=== PATIENT | female | born 1960 | race Caucasian/White ===

== ENCOUNTER 2018-11-27 07:59 | Emergency (ER) | payer OTHER ==
--- OUTSIDE RECORDS SUMMARY | 2018-11-27 08:03 | XMS REPORT | Clinical Summary ---
:1960 Author Organization [facility] Address [address] [place] [address] Care Team Providers Name Role Phone Connor Klein MD Primary Care Provider Allergies Active Allergy Reactions Severity Noted Date Comments No Known Drug Allergies 07/28/2016 Other Itching 07/28/2016 Hayfever: Other reaction(s): Headache Other reaction(s): Cough Other reaction(s): Chest pain Medications Medication Sig Dispensed Refills Start End Date Status Date diazepam (VALIUM) 5 MG Take 2.5 mg 0 Active tablet by mouth daily. metoprolol tartrate Take 50 mg by 0 Active (LOPRESSOR) 50 MG mouth 2 (two) tablet times a day. omeprazole (PriLOSEC) Take 40 mg by 0 Active 40 MG capsule mouth every other day. traMADol (ULTRAM) 50 mg Take 50 mg by 0 Active tablet mouth as needed. warfarin (COUMADIN) 5 Take 10 mg by 0 Active MG tablet mouth daily. 10 mg FLUoxetine (PROzac) 20 Take 20 mg by 0 Active MG capsule mouth daily. 7 furosemide (LASIX) 40 Take 40 mg by 3 Active mg tablet mouth once 7 daily. Does take 1-2 daily PROAIR RESPICLICK 90 INHALE TWO 2 Active mcg/actuation aerosol (2) PUFF(S) 7 powdr breath activated BY MOUTH EVERY 4 HOURS. gabapentin (NEURONTIN) Take 400 mg 0 Active 400 mg capsule by mouth as needed. atorvastatin (LIPITOR) 1 tablet 0 Active 10 MG tablet daily. 8 VITAMIN D2 50,000 unit once a week. 0 Active capsule 8 magnesium oxide 400 mg 0 Active capsule 8 diphenhydrAMINE Take 25 mg by 0 Active (BENADRYL) 25 mg tablet mouth nightly as needed for sleep. FLUoxetine (PROzac) 40 0 Active MG capsule 8 losartan (COZAAR) 50 MG TAKE ONE (1) 180 tablet 0 Active tablet TABLET(S) BY 8 MOUTH TWICE A DAY. doxycycline TAKE 1 0 Active (VIBRAMYCIN) 50 MG CAPSULE BY 8 capsule MOUTH EVERY 12 HOURS losartan (COZAAR) 50 MG TAKE 1 TABLET 180 tablet 1 Active tablet BY MOUTH 9 TWICE A DAY enoxaparin (LOVENOX) 80 One injection 10 Syringe 1 Active mg/0.8 mL SQ in abdomen 9 syringeIndications: S/P twice a day AVR or as directed by MD office fluticasone (FLONASE) 1 spray into 0 03/08/20 Discontinued 50 mcg/actuation nasal each nostril 18 spray as needed. traZODone (DESYREL) 50 TAKE 0.5 90 tablet 3 03/08/20 Discontinued MG tablet TABLET(S) 6 18 NEEDED BY ORAL ROUTE FOR 90 DAYS. amoxicillin (AMOXIL) TAKE 4 4 capsule 2 11/26/19 500 MG capsule TABLETS 30 7 18 MINS PIROR TO DENTAL WORK METHYLPREDNISOLONE Take by 0 03/08/20 Discontinued (MEDROL ORAL) mouth. Twice 18 daily for five days losartan (COZAAR) 50 MG Take 1 tablet 180 tablet 2 06/02/20 Discontinued tablet (50 mg total) 8 18 by mouth 2 (two) times a day. losartan (COZAAR) 50 MG Take 1 tablet 180 tablet 2 09/27/20 Discontinued tablet (50 mg total) 8 18 by mouth 2 (two) times a day. losartan (COZAAR) 50 MG Take 1 tablet 60 tablet 0 09/30/20 Discontinued tablet (50 mg total) 8 18 by mouth 2 (two) times a day. enoxaparin (LOVENOX) 80 One injection 10 Syringe 1 11/12/19 Discontinued mg/0.8 mL SQ in abdomen 9 19 syringeIndications: S/P twice a day AVR or as directed by MD office amoxicillin (AMOXIL) Take 4 4 capsule 0 11/18/19 500 MG capsule capsules 30 9 19 minutes prior to dental procedure Active Problems Problem Noted Date Acute upper respiratory infection 07/28/2016 S/p [place] #25 [facility] AVR ([facility]) 07/28/2016 Cerebrovascular accident (CVA) 07/28/2016 Cervical radiculitis 07/28/2016 Cluster headaches 07/28/2016 Community acquired pneumonia 07/28/2016 Chronic diastolic congestive heart failure 07/28/2016 Degeneration of intervertebral disc of cervical region 07/28/2016 Degeneration of intervertebral disc of lumbar region 07/28/2016 Depression 07/28/2016 Dissection of aorta 07/28/2016 Essential hypertension 07/28/2016 Hyperlipidemia 07/28/2016 Scoliosis (and kyphoscoliosis), idiopathic 07/28/2016 Uterine neoplasm 07/28/2016 Pseudoaneurysm 07/28/2016 Residual cognitive deficit as late effect of cerebrovascular accident 2015 Aneurysm of vertebral artery 07/28/2016 Temporary cerebral vascular dysfunction 07/28/2016 Encounters Date Type Specialty Care Team Description 11/24/2018 Telephone Cardiology Rios, Anticoagulation Sara, RIGHT OF WAY [employer]TER 11/17/2018 Orders Only Cardiology Mahi Petersen, MA 11/12/2018 Telephone Cardiology Zahira Benitez, RX REFILLED MA 11/05/2018 Orders Only Cardiology Rios, S/P AVR (Primary Dx) Sara, RIGHT OF WAY C[employer]TER 11/04/2018 Telephone Cardiology Rios, Anticoagulation Sara, RIGHT OF [employer] C[employer]TER 11/02/2018 Orders Only Cardiology Rios, S/P AVR (Primary Dx) Sraa, RIGHT OF WAY CUTTER 11/02/2018 Telephone Cardiology Rios, Anticoagulation Sara, RIGHT OF WAY C[employer]TER 10/25/2018 Refill Cardiology Lewis Esparza, Med Refill 10/08/2018 Office Visit Cardiology Lewis Esparza, S/p [place] #25 [facility] AVR ([facility]) (Primary Dx); Dissection of thoracoabdominal aorta (HCC); Aneurysm of vertebral artery (HCC); Chronic diastolic congestive heart failure (HCC) 09/30/2018 Refill Cardiology Lewis Esparza, Med Refill 09/27/2018 Orders Only Cardiology Joseph Acosta, ANDRZEJ 09/27/2018 Orders Only Cardiology Joseph Acosta MA 09/27/2018 Refill Cardiology Lewis Esparza Med Refill 06/07/2018 Telephone Cardiology Joseph Acosta, Results (Myocardial MA Perfusion ) 06/04/2018 Documentation Cardiology Zahira Benitez INR THERAPY ANDRZEJ 06/01/2018 Refill Cardiology Lewis Esparza Med Refill (Losartan) 04/02/2018 Office Visit Cardiology Lewis Esparza S/p [place] #25 [facility] AVR ([facility]) (Primary Dx); Aneurysm of vertebral artery; Dissection of thoracoabdominal aorta; Essential hypertension; Hyperlipidemia, unspecified hyperlipidemia type; Cerebrovascular accident (CVA) due to bilateral stenosis of vertebral arteries; Chronic diastolic congestive heart failure 03/09/2018 Hospital Encounter Radiology Lewis Esparza S/p [place] #25 [facility] AVR ([facility]); Cerebrovascular accident (CVA) due to bilateral stenosis of vertebral arteries; Chronic diastolic congestive heart failure; Dissection of thoracoabdominal aorta; Hyperlipidemia, unspecified hyperlipidemia type 03/08/2018 Office Visit Neurology Antoni Mccrary Aneurysm of vertebral artery (Primary Dx); MD David Cerebrovascular accident (CVA) due to bilateral stenosis of vertebral arteries; Pseudoaneurysm; Temporary cerebral vascular dysfunction; Cervical arthritis after 11/26/2017 Family History Medical History Relation Name Comments Aneurysm Father "cause of " Aneurysm Paternal Uncle "Aortic aneurysm syndrome" Relation Name Status Comments Father (Age 60) Other Unspecified: "There is no family history of premature coronary artery disease" Paternal Uncle Social History Tobacco Use Types Packs/Day Years Used Date Never Smoker Smokeless Tobacco: Never Used Chew Comments: smoker in her teens Alcohol Use Drinks/Week oz/Week Comments Yes "occasional" Sex Assigned at Date Recorded Not on file Job Start Date Occupation Industry Not on file Not on file Not on file Travel History Travel Start Travel End No recent travel history available. Last Filed Vital Signs Vital Sign Reading Time Taken Blood Pressure 108/53 10/08/2018 10:05 AM [employer] Pulse 53 10/08/2018 10:05 AM [employer] Temperature - - Respiratory Rate - - Oxygen Saturation 93% 10/08/2018 10:05 AM [employer] Inhaled Oxygen Concentration - - Weight 80.3 kg (177 lb) 10/08/2018 10:05 AM [employer] Height 180.3 cm (5' 11") 10/08/2018 10:05 AM [employer] Body Mass Index 24.69 10/08/2018 10:05 AM [employer] Plan of Treatment Date Type Specialty Care Team Description 03/21/2019 Office Visit Cardiology Lewis Esparza MD [address] [place] [address] Health Maintenance Due Date Last Done Comments CERVICAL CANCER SCREENING 1983 BREAST CANCER SCREENING 2012 COLON CANCER SCREENING 2012 SHINGLES VACCINES (1 of 2) 2012 INFLUENZA VACCINE Completed 07/23/2018, 07/19/2015 Procedures Procedure Name Priority Date/Time Associated Diagnosis Comments PROTHROMBIN TIME Routine 11/24/2018 Results for this WITH INR procedure are in the results section. PROTHROMBIN TIME Routine 11/04/2018 Results for this WITH INR procedure are in the results section. BASIC METABOLIC Routine 11/03/2018 8:52 S/P AVR Results for this PANEL AM [employer] procedure are in the results section. PROTHROMBIN TIME Routine 10/29/2018 Results for this WITH INR procedure are in the results section. NM MYOCARDIAL Routine 06/02/2018 2:16 S/p Bent[place] #25 me[facility] Results for this PERFUSION STRESS PM CDT AVR ([facility]) procedure are in ONLY Aneurysm of vertebral the results artery section. Dissection of thoracoabdominal aorta Essential hypertension Cerebrovascular accident (CVA) due to bilateral stenosis of vertebral arteries Chronic diastolic congestive heart failure CV STRESS TEST Routine 06/02/2018 2:16 S/p [place] #25 mech Results for this NUCLEAR CARDIO PM CDT AVR ([facility]) procedure are in Aneurysm of vertebral the results artery section. Dissection of thoracoabdominal aorta Essential hypertension Cerebrovascular accident (CVA) due to bilateral stenosis of vertebral arteries Chronic diastolic congestive heart failure ECG 12-LEAD Routine 04/01/2018 ECG 12-LEAD Routine 04/01/2018 CARDIAC MRI Routine 03/09/2018 9:30 S/p [place] #25 mech Results for this CONGENITAL HEART AM CDT AVR ([facility]) procedure are in DISEASE SHUNT EVAL W Cerebrovascular the results CONTRAST accident (CVA) due to section. bilateral stenosis of vertebral arteries Chronic diastolic congestive heart failure Dissection of thoracoabdominal aorta Hyperlipidemia, unspecified hyperlipidemia type POC PANEL Routine 03/09/2018 7:42 Results for this AM CDT procedure are in the results section. ESTIMATED GFR Routine 03/09/2018 7:42 Results for this AM CDT procedure are in the results section. PV TRANSCRANIAL Routine 03/08/2018 11:00 Cerebrovascular Results for this DOPPLER INTRACRANIAL AM CDT accident (CVA) due to procedure are in ARTERIES COMPLETE bilateral stenosis of the results vertebral arteries section. US CAROTID DUPLEX Routine 03/08/2018 11:00 Cerebrovascular Results for this BILATERAL AM CDT accident (CVA) due to procedure are in bilateral stenosis of the results vertebral arteries section. after 11/26/2017 Results Prothrombin time with INR (11/24/2018)Only the most recent of3 resultswithin the time period is included. INR 1.30 [facility] Specimen Blood Performing Organization Address City/[facility]/Zipcode Phone Number [facility] Basic metabolic panel (11/03/2018 8:52 AM [employer]) Glucose 94 65 - 99 mg/dL [facility] Comment: [place] Fasting reference interval BUN, whole blood 16 7 - 25 mg/dL [facility] [place] Creatinine 0.75 0.50 - 1.05 [facility] Comment: mg/dL [place] For patients >49 years of age, the reference limit for Creatinine is approximately 13% higher for people identified as -[place]. EGFR Non-Afr. [place] 89 > OR=60 [facility] mL/min/1.73m2 [place] EGFR 103 > OR=60 [facility] mL/min/1.73m2 [place] BUN/creatinine ratio NOT APPLICABLE 6 - 22 (calc) [facility] [place] Sodium 140 135 - 146 mmol/L [facility] [place] Potassium 4.9 3.5 - 5.3 mmol/L [facility] [place] Chloride 105 98 - 110 mmol/L [facility] [place] CO2 29 20 - 32 mmol/L [facility] [place] Calcium 9.5 8.6 - 10.4 mg/dL [facility] [place] Specimen Blood Narrative Performed At FASTING:YES [facility] FASTING: YES Resulting Agency Comment Performing Organization Information: Site ID: [id number] Name: [facility] Address: [address] [place] [address] Director: Myra Robertson Performing Organization Address City/State/Zipcode Phone Number [employer] [place] [address] [place] [phone] Cv stress test (06/02/2018 2:16 PM CDT) Resting HR 54 [facility] Resting BP 110 [facility] Peak MET Achieved 2.3 [facility] Protocol Name REJI [facility] MUSE Time in Exercise Phase 00:04:00 [facility] Max Systolic BP 132 [facility] Max Diastolic BP 61 [facility] Max Heart Rate 90 [facility] Max Predicted Heart Rate 165 [facility] Target HR Formula (220 - Age)*85% [facility] Test Indication anuerysm of vertebral artery, [facility] MUSE hypertension Arrhy During Ex [facility] ECG Interp Before EX [facility] ECG Interp During Ex [facility] Ex Summary Comment [facility] MUSE Overall HR Response to [facility] Exercise Overall BP Response To [facility] Exercise Reason for Termination Test complete [facility] Stress Test Impression Waveform interpreted in report [facility] MUSE associated with image study. No interpretation is provided as part of this Stress ECG report.--Electronically Signed By Dena BLOUNT, Antoni Rodriguez ([id number]), newspaper or periodical editor Anay Vu ([id number]) on 06/04/2018 3:29:06 PM Performing Organization Address City/State/Zipcode Phone Number [facility] MUSE [address] myocardial perfusion (06/02/2018 2:16 PM CDT) Narrative Performed At [facility] Nuclear Cardiology Laboratory [address] [place] [address], [address] [place], [place] [id number] Fax: Myocardial Perfusion Imaging Report Pat.Name:SHARRON BENNETT Pat.ID:[id number] .Date: 06/02/2018 Refer.MD:LEWIS ESPARZA MD Exam Time: 9:41:00 AM Study Type:Myocardial Perfusion Imaging Height:71inWeight: 175lb BSA: 1.99 m2 DOBAge:1960,57Y Sex: FEMALE Nuclear Tech:BETHANY Paul, ARRT(CT) Nuclear Event ID:[id number] Order ID:[id number] Reason for Study:Abnormal EKG*, Chest pain, unspecified*, Chronic diastolic CHF (I50.32) Procedures:Stress only Race: Clinical Symptoms:Regadenoson SUMMARY: BASELINE ECGSinus bradycardia, 1st degree AV block, nonspecific ST/T wave abnormality STRESS TEST RESULTS Maximal Predicted HR165 beats/minute 85% Maximal Predicted HR 140 beats/minute Stress Test Duration4 minutes 00 seconds Resting Heart Rate54 beats/minute Maximal Heart Rate90 beats/minute Resting Blood Zntuswzc685/55 mmHg Maximal Blood Zccfymcq470/61 mmHg % Maximal Heart Rate Achieved 54% Symptoms During TestHeadache, Nausea, Dizziness, Chest tightness Reason for Stopping TestAs per walking regadenoson protocol Maximal ST-segment shiftNone Stress-Induced Arrhythmias None Ischemic electrocardiographic changes (ST-segment depression) did not occur at peak walking regadenoson stress. STRESS TEST INTERPRETATION Normal maximal walking regadenoson stress test. _. SCINTIGRAPHIC RESULTS Perfusion Defect Size (% LV) 0 % Total 0 % Ischemia 0 % Scar Left Ventricular Perfusion Results There is normal tracer distribution throughout the myocardium during stress. Gated SPECT Results The post-stress left ventricular ejection fraction is 72 % with normal regional wall motion and left ventricular thickening.Left ventricular end-diastolic volume is 121 ml; end-systolic volume is34 ml. The left ventricle is of normal size at stress.The right ventricle is of normal size with normal wall motion. Conclusion Normal regadenoson Tc-99m tetrofosmin myocardial perfusion study. The left ventricular ejection fraction is normal. Comments Patients with a normal stress myocardial perfusion study have a low (< 1%) annual risk of cardiac or nonfatal myocardial infarction. Study Quality/Artifacts The study quality is good. Comparison to Previous Study None available. Signed 06/03/2018 06:46 PM Antoni Fernandes MD Procedure Note Interface, Radiology Results In - 06/03/2018 6:46 PM CDT Nuclear Cardiology Laboratory [address] [facility], [address] [place] [address] Myocardial Perfusion Imaging Report Pat.Name: SHARRON BENNETT Pat.ID: [id number] St.Date: 06/02/2018 Refer.MD: LEWIS ESPARZA MD Exam Time: 9:41:00 AM Study Type:Myocardial Perfusion Imaging Height: 71in Weight: 175lb BSA: 1.99 m2 Age: 9 1960,57Y Sex: FEMALE Nuclear Tech:Edwin Garza [facility]([place]) Nuclear Event ID:[id number] Order ID: [id number] Reason for Study:Abnormal EKG*, Chest pain, unspecified*, Chronic diastolic CHF (I50.32) Procedures:Stress only Race: Clinical Symptoms:Regadenoson SUMMARY: BASELINE ECG Sinus bradycardia, 1st degree AV block, nonspecific ST/T wave abnormality STRESS TEST RESULTS Maximal Predicted HR 165 beats/minute 85% Maximal Predicted HR 140 beats/minute Stress Test Duration 4 minutes 00 seconds Resting Heart Rate 54 beats/minute Maximal Heart Rate 90 beats/minute Resting Blood Pressure 110/55 mmHg Maximal Blood Pressure 132/61 mmHg % Maximal Heart Rate Achieved 54% Symptoms During Test Headache, Nausea, Dizziness, Chest tightness Reason for Stopping Test As per walking regadenoson protocol Maximal ST-segment shift None Stress-Induced Arrhythmias None Ischemic electrocardiographic changes (ST-segment depression) did not occur at peak walking regadenoson stress. STRESS TEST INTERPRETATION Normal maximal walking regadenoson stress test. _. SCINTIGRAPHIC RESULTS Perfusion Defect Size (% LV) 0 % Total 0 % Ischemia 0 % Scar Left Ventricular Perfusion Results There is normal tracer distribution throughout the myocardium during stress. Gated SPECT Results The post-stress left ventricular ejection fraction is 72 % with normal regional wall motion and left ventricular thickening. Left ventricular end-diastolic volume is 121 ml; end-systolic volume is 34 ml. The left ventricle is of normal size at stress. The right ventricle is of normal size with normal wall motion. Conclusion Normal regadenoson Tc-99m tetrofosmin myocardial perfusion study. The left ventricular ejection fraction is normal. Comments Patients with a normal stress myocardial perfusion study have a low (< 1%) annual risk of cardiac or nonfatal myocardial infarction. Study Quality/Artifacts The study quality is good. Comparison to Previous Study None available. Signed 06/03/2018 06:46 PM Antoni Fernandes MD Performing Organization Address City/State/Zipcode Phone Number [facility] [address] [place] [address] ECG 12 lead (04/01/2018)Only the most recent of2 resultswithin the time period is included. Narrative Performed At Cardiac mri congenital heart dz shunt eval w contrast (03/09/2018 9:30 AM CDT) Narrative Performed At [facility] CMR Report Name:SHARRON BENNETT :1960 Scan Date: 2018-03-09 07:55:56 Electronically signed by nAa Irizarry M.D. 15:57:24 VITALS HEIGHT/WEIGHT HEIGHT:71.00 in 180.34 cm WEIGHT:178.99 lbs 81.19 kgs BSA/BP BSA:2.01 m^2 SYSTOLIC BP:111 mmHg DIASTOLIC BP:64 mmHg HEART RATE/RHYTHM BASELINE HR:53 BPM HEART RHYTHM:Other Sinus bradycardia SUMMARY LEFT VENTRICLE: LV wall thickness is normal. LV cavity size is normal. LV systolic function is normal. Quantitative LVEF 63%. There is no LV mass/thrombus. VIABILITY: LV infarct/scar size is 4%.Non-CAD scar in the basal inferolateral wall.Focal infarct in mid-inferior wall. RIGHT VENTRICLE: RV wall thickness is normal. RV cavity size is upper limits of normal. RV systolic function is normal. Quantitative RVEF 58%. There is no RV mass/thrombus.RVEDVi=96 ml/m2. VENTRICULAR SEPTUM: The ventricular septum is intact. ATRIAL SEPTUM: The atrial septum is intact. LEFT ATRIUM: LA cavity size is normal. There is no LA mass/thrombus. RIGHT ATRIUM: RA cavity size is normal. There is no RA mass/thrombus. PERICARDIUM: Pericardium is normal. There is no pericardial effusion. PLEURAL EFFUSION: There is no pleural effusion. AORTIC VALVE: Aortic valve is mechanical prosthetic. There is mild aortic regurgitation. Aortic regurgitant volume 8ml. Aortic regurgitant fraction 8%. There is no aortic stenosis.Aortic regurgitation jet is central when visualized in the LVOT, suggesting transvalvular regurgitation; however, dedicated imaging for AI was not carried out. MITRAL VALVE: Mitral valve leaflets are normal. There is no mitral regurgitation. There is no mitral stenosis. TRICUSPID VALVE: Tricuspid valve leaflets are normal. There is mild tricuspid regurgitation. Tricuspid regurgitant volume 24ml. Tricuspid regurgitant fraction 21%. There is no tricuspid stenosis. PULMONIC VALVE: Pulmonic valve leaflets are normal. There is mild pulmonic regurgitation. There is no pulmonic stenosis. AORTIC ROOT: The aortic root is mildly dilated.The sinus of valsalva measures 4.0 cm. CHEST: 1. 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 There is mild flow acceleration at the proximal graft anastomotic site with folding/kinking of the graft in the mid ascending; However no significant stenosis at the proximal or distal graft anastomotic sites.Both aortic arch and isthmus are dilated (up to 4.3 cm) with tapering to a normal size after mid descending aorta. There is residual dissection in the distal thoracic aorta extending to the left common iliac artery.In the thoracic aorta, the true lumen is located anteriorly and medially. Entry site tear is seen in the proximal aortic arch. The false lumen is not thrombosed and fills antegrade. There is minimal mobility of the dissection flap. The prior mass like structure at the ascending aortic graft extending from the level of the right atrium to just below the origin of innominate artery is smaller at 0.8 x 1.6 cm. This is likely postoperative changes (resolved hematoma). Tissue characteristics relative to myocardium are as follow: isointense on T1, and no evidence of first-pass perfusion, but bright on delayed hyperenhancement. 2. ARCH VESSELS: Dissection extends into the innominate, left common carotid and left subclavian arteries. The innominate artery, left common carotid and subclavian artery arise from both true and false lumen. 3. ABDOMINAL AORTA: The dissection extends throughout the abdominal aorta and to left common iliac artery. The true lumen is located anteriorly and medially. The celiac, SMA and right renal arteries arise from the true lumen. There is a severe 70-89% stenosis at the celiac artery with dissection present. The left renal artery arises from the false lumen.No exit/re-entry site tear seen in the abdominal aorta. The false lumen is not thrombosed and is filled in an antegrade fashion. There is minimal mobility of the dissection flap. 4. PELVIS: The right iliac arises from the true lumen and is free of dissection or aneurysm. 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 OTHER FINDINGS: Multiple liver cysts present. FINAL IMPRESSION: ON DIRECT COMPARISON TO PRIOR CMR 10-16-2015: A.THERE IS A NEW FOCAL INFARCT IN THE LV. B.THERE IS NO EXTENSION OF DISSECTION OR INCREASE IN AORTIC DIMENSIONS. C.THERE IS NOW A SEVERE CELIAC ARTERY STENOSIS. CORE EXAM MEASUREMENTS VOLUMETRIC ANALYSIS . . || | LV | Reference| RV | Reference| +------+-------+------+ +------+ + | EDV| ml|166 |(113-181) |193 |(107-181) | | ESV| ml| 62 |(28-66) | 81 |(22-74) | | CO | L/min | 5.51 || 5.94 || | MASS | g | 97 |(96-157)||| | SV | ml|104 |(74-125)|112 |(72-121)| | EF | % | 63 |(59-77) | 58 |(55-79) | '------+-------+------+ +------+ ' CARDIAC OUTPUT HR:53 BPM LV DIMENSIONS WALL THICKNESS - ANTEROSEPTAL:0.7 cm WALL THICKNESS - INFEROLATERAL:0.6 cm LV BELKIS:6.0 cm LV ESD:3.8 cm LA DIMENSIONS (LV SYSTOLE) DIAMETER:2.1 cm AREA - 2 CHAMBER:12 cm^2 LENGTH - 2 CHAMBER:2.5 cm AREA - 4 CHAMBER:25 cm^2 LENGTH - 4 CHAMBER:7.2 cm VOLUME:102 ml AORTIC ROOT DIMENSIONS ANNULUS:2.3 cm SINUS OF VALSALVA:4.0 cm SINOTUBULAR JUNCTION:2.8 cm EXTRACELLULAR VOLUME MEASUREMENT HEMATOCRIT:47 % HEMATOCRIT DATE:2018-03-09 00:00:00 17 SEGMENT . . | Segments | Wall Motion| Hyperenhancement | Stress Perfusion | Interpretation | + + + + --+ + | Base Anterior| Normal/Hyper | None ||| | Base Anteroseptal| Normal/Hyper | None ||| | Base Inferoseptal| Normal/Hyper | None ||| | Base Inferior| Normal/Hyper | None ||| | Base Inferolateral | Normal/Hyper | 1-25%|| Non-CAD Scar | | Base Anterolateral | Normal/Hyper | None ||| | Mid Anterior | Normal/Hyper | None ||| | Mid Anteroseptal | Normal/Hyper | None ||| | Mid Inferoseptal | Normal/Hyper | None ||| | Mid Inferior | Normal/Hyper | 26-50% || Sub-Endo [place]| | Mid Inferolateral| Normal/Hyper | None ||| | Mid Anterolateral| Normal/Hyper | None ||| | Apical Anterior| Normal/Hyper | None ||| | Apical Septal| Normal/Hyper | None ||| | Apical Inferior| Normal/Hyper | 1-25%|| Sub-Endo [place]| | Apical Lateral | Normal/Hyper | None ||| | [place] | Normal/Hyper | None ||| + + + + --+ + | RV Segments| Wall Motion| Hyperenhancement | Stress Perfusion | Interpretation | + + + + --+ + | RV Basal Anterior| Normal/Hyper | None ||| | RV Basal Inferior| Normal/Hyper | None ||| | RV Mid | Normal/Hyper | None ||| | RV Apical| Normal/Hyper | None ||| ' + + + --+ ' FINDINGS INFARCT/SCAR SIZE:4 % VASCULAR UPPER VASCULAR EVALUATION OF THE THORACIC AORTA COMMENTS (no comments) . . | EVALUATION DETAILS (Thoracic Aorta) | | | | ASCENDING AORTA | | Dimension A:3.6 cm | | Dimension B:3.5 cm | + + | ARCH OF THE AORTA | | Dimension A:4.3 cm | | Dimension B:4 cm | + + | ISTHMUS OF THE AORTA | | Dimension A:4 cm | | Dimension B:3.3 cm | + + | MID-DESCENDING AORTA | | Dimension A:3.3 cm | | Dimension B:3 cm | + + | DISTAL DESCENDING AORTA | | Dimension A:2.7 cm | | Dimension B:2.6 cm | . . LOWER VASCULAR EVALUATION OF THE ABDOMINAL AORTA AND PELVIS COMMENTS (no comments) . . | EVALUATION DETAILS (Abdominal Aorta and Pelvis) | | | | ABDOMINAL AORTA (SUPRA RENAL) | | Dimension A:2.7 cm | | Dimension B:2.6 cm | + + | ABDOMINAL AORTA (JUXTA RENAL) | | Dimension A:2.4 cm | | Dimension B:1.9 cm | + + | ABDOMINAL AORTA (INFRA RENAL) | | Dimension A:2.5 cm | | Dimension B:2.3 cm | + + | ABDOMINAL AORTA (BIFURCATION) | | Dimension A:2.4 cm | | Dimension B:2.3 cm | . . SCAN INFO GENERAL CONTRAST AGENT TYPE:Dotarem LOT NUMBER:[id number] EXPIRATION DATE:2019-04-17 00:00:00 VOLUME ADMINISTERED:25 ml DOSAGE FOR 0.5M:0.15 mmol/kg SERUM CREATININE:0.7 sCr GFR:92.34 ml/min/1.73m^2 CREATININE DATE:2018-03-09 00:00:00 SEDATION SEDATION USED?:No PULSE SEQUENCE PULSE SEQUENCES:Single-Shot SSFP, IR GRE - Segmented, IR SSFP - Single Shot, Single Shot BB CROW, SSFP Cine, Phase Contrast Velocity Mapping, 3D MRA w and w/o contrast SETUP TYPE:Clinical INPATIENT:No INCOMPLETE SCAN:No REASON(S) FOR SCAN:Aortic Dissection, Aortic valve (evaluate), Congenital Heart Disease REFERRING PHYSICIAN:Lewis Esparza MD ATTENDING PHYSICIAN:Lewis Esparza MD TECHNOLOGIST:Giovanni Rubio Patient Account [id number] CPT Codes 56225, 70781, 02161, 18361 ICD10 Codes I71.02, I71.01, I71.2 ADDITIONAL NOTES [id number] Report generated by [employer], a product of [employer] Procedure Note Interface, Radiology Results In 03/09/2018 3:57 PM CDT Correa Rastafari CMR Report Name: SHARRON BENNETT : 1960 Scan Date: 2018-03-09 07:55:56 Electronically signed by Ana Irizarry M.D. 15:57:24 VITALS HEIGHT/WEIGHT HEIGHT: 71.00 in 180.34 cm WEIGHT: 178.99 lbs 81.19 kgs BSA/BP BSA: 2.01 m^2 SYSTOLIC BP: 111 mmHg DIASTOLIC BP: 64 mmHg HEART RATE/RHYTHM BASELINE HR: 53 BPM HEART RHYTHM: Other Sinus bradycardia SUMMARY LEFT VENTRICLE: LV wall thickness is normal. LV cavity size is normal. LV systolic function is normal. Quantitative LVEF 63%. There is no LV mass/thrombus. VIABILITY: LV infarct/scar size is 4%. Non-CAD scar in the basal inferolateral wall. Focal infarct in mid-inferior wall. RIGHT VENTRICLE: RV wall thickness is normal. RV cavity size is upper limits of normal. RV systolic function is normal. Quantitative RVEF 58%. There is no RV mass/thrombus. RVEDVi=96 ml/m2. VENTRICULAR SEPTUM: The ventricular septum is intact. ATRIAL SEPTUM: The atrial septum is intact. LEFT ATRIUM: LA cavity size is normal. There is no LA mass/thrombus. RIGHT ATRIUM: RA cavity size is normal. There is no RA mass/thrombus. PERICARDIUM: Pericardium is normal. There is no pericardial effusion. PLEURAL EFFUSION: There is no pleural effusion. AORTIC VALVE: Aortic valve is mechanical prosthetic. There is mild aortic regurgitation. Aortic regurgitant volume 8ml. Aortic regurgitant fraction 8%. There is no aortic stenosis. Aortic regurgitation jet is central when visualized in the LVOT, suggesting transvalvular regurgitation; however, dedicated imaging for AI was not carried out. MITRAL VALVE: Mitral valve leaflets are normal. There is no mitral regurgitation. There is no mitral stenosis. TRICUSPID VALVE: Tricuspid valve leaflets are normal. There is mild tricuspid regurgitation. Tricuspid regurgitant volume 24ml. Tricuspid regurgitant fraction 21%. There is no tricuspid stenosis. PULMONIC VALVE: Pulmonic valve leaflets are normal. There is mild pulmonic regurgitation. There is no pulmonic stenosis. AORTIC ROOT: The aortic root is mildly dilated. The sinus of valsalva measures 4.0 cm. CHEST: 1. 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 There is mild flow acceleration at the proximal graft anastomotic site with folding/kinking of the graft in the mid ascending; However no significant stenosis at the proximal or distal graft anastomotic sites. Both aortic arch and isthmus are dilated (up to 4.3 cm) with tapering to a normal size after mid descending aorta. There is residual dissection in the distal thoracic aorta extending to the left common iliac artery. In the thoracic aorta, the true lumen is located anteriorly and medially. Entry site tear is seen in the proximal aortic arch. The false lumen is not thrombosed and fills antegrade. There is minimal mobility of the dissection flap. The prior mass like structure at the ascending aortic graft extending from the level of the right atrium to just below the origin of innominate artery is smaller at 0.8 x 1.6 cm. This is likely postoperative changes (resolved hematoma). Tissue characteristics relative to myocardium are as follow: isointense on T1, and no evidence of first-pass perfusion, but bright on delayed hyperenhancement. 2. ARCH VESSELS: Dissection extends into the innominate, left common carotid and left subclavian arteries. The innominate artery, left common carotid and subclavian artery arise from both true and false lumen. 3. ABDOMINAL AORTA: The dissection extends throughout the abdominal aorta and to left common iliac artery. The true lumen is located anteriorly and medially. The celiac, SMA and right renal arteries arise from the true lumen. There is a severe 70-89% stenosis at the celiac artery with dissection present. The left renal artery arises from the false lumen.No exit/re-entry site tear seen in the abdominal aorta. The false lumen is not thrombosed and is filled in an antegrade fashion. There is minimal mobility of the dissection flap. 4. PELVIS: The right iliac arises from the true lumen and is free of dissection or aneurysm. 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 OTHER FINDINGS: Multiple liver cysts present. FINAL IMPRESSION: ON DIRECT COMPARISON TO PRIOR CMR 10-16-2015: A. THERE IS A NEW FOCAL INFARCT IN THE LV. B. THERE IS NO EXTENSION OF DISSECTION OR INCREASE IN AORTIC DIMENSIONS. C. 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 CORE EXAM MEASUREMENTS VOLUMETRIC ANALYSIS . . | | | LV | Reference | RV | Reference | +------+-------+------+ +------+ + | EDV | ml | 166 | (113-181) | 193 | (107-181) | | ESV | ml | 62 | (28-66) | 81 | (22-74) | | CO | L/min | 5.51 | | 5.94 | | | MASS | g | 97 | (96-157) | | | | SV | ml | 104 | (74-125) | 112 | (72-121) | | EF | % | 63 | (59-77) | 58 | (55-79) | '------+-------+------+ +------+ ' CARDIAC OUTPUT HR: 53 BPM LV DIMENSIONS WALL THICKNESS - ANTEROSEPTAL: 0.7 cm WALL THICKNESS - INFEROLATERAL: 0.6 cm LV BELKIS: 6.0 cm LV ESD: 3.8 cm LA DIMENSIONS (LV SYSTOLE) DIAMETER: 2.1 cm AREA - 2 CHAMBER: 12 cm^2 LENGTH - 2 CHAMBER: 2.5 cm AREA - 4 CHAMBER: 25 cm^2 LENGTH - 4 CHAMBER: 7.2 cm VOLUME: 102 ml AORTIC ROOT DIMENSIONS ANNULUS: 2.3 cm SINUS OF VALSALVA: 4.0 cm SINOTUBULAR JUNCTION: 2.8 cm EXTRACELLULAR VOLUME MEASUREMENT HEMATOCRIT: 47 % HEMATOCRIT DATE: 2018-03-09 00:00:00 17 SEGMENT . . | Segments | Wall Motion | Hyperenhancement | Stress Perfusion | Interpretation | + + + + +---- + | Base Anterior | Normal/Hyper | None | | | | Base Anteroseptal | Normal/Hyper | None | | | | Base Inferoseptal | Normal/Hyper | None | | | | Base Inferior | Normal/Hyper | None | | | | Base Inferolateral | Normal/Hyper | 1-25% | | Non -CAD Scar | | Base Anterolateral | Normal/Hyper | None | | | | Mid Anterior | Normal/Hyper | None | | | | Mid Anteroseptal | Normal/Hyper | None | | | | Mid Inferoseptal | Normal/Hyper | None | | | | Mid Inferior | Normal/Hyper | 26-50% | | Sub -Endo [place] | | Mid Inferolateral | Normal/Hyper | None | | | | Mid Anterolateral | Normal/Hyper | None | | | | Apical Anterior | Normal/Hyper | None | | | | Apical Septal | Normal/Hyper | None | | | | Apical Inferior | Normal/Hyper | 1-25% | | Sub -Endo [place] | | Apical Lateral | Normal/Hyper | None | | | | [place] | Normal/Hyper | None | | | + + + + +---- + | RV Segments | Wall Motion | Hyperenhancement | Stress Perfusion | Interpretation | + + + + +---- + | RV Basal Anterior | Normal/Hyper | None | | | | RV Basal Inferior | Normal/Hyper | None | | | | RV Mid | Normal/Hyper | None | | | | RV Apical | Normal/Hyper | None | | | ' + + + +---- ' FINDINGS INFARCT/SCAR SIZE: 4 % VASCULAR UPPER VASCULAR EVALUATION OF THE THORACIC AORTA COMMENTS (no comments) . . | EVALUATION DETAILS (Thoracic Aorta) | | | | ASCENDING AORTA | | Dimension A: 3.6 cm | | Dimension B: 3.5 cm | + + | ARCH OF THE AORTA | | Dimension A: 4.3 cm | | Dimension B: 4 cm | + + | ISTHMUS OF THE AORTA | | Dimension A: 4 cm | | Dimension B: 3.3 cm | + + | MID-DESCENDING AORTA | | Dimension A: 3.3 cm | | Dimension B: 3 cm | + + | DISTAL DESCENDING AORTA | | Dimension A: 2.7 cm | | Dimension B: 2.6 cm | . . LOWER VASCULAR EVALUATION OF THE ABDOMINAL AORTA AND PELVIS COMMENTS (no comments) . . | EVALUATION DETAILS (Abdominal Aorta and Pelvis) | | | | ABDOMINAL AORTA (SUPRA RENAL) | | Dimension A: 2.7 cm | | Dimension B: 2.6 cm | + + | ABDOMINAL AORTA (JUXTA RENAL) | | Dimension A: 2.4 cm | | Dimension B: 1.9 cm | + + | ABDOMINAL AORTA (INFRA RENAL) | | Dimension A: 2.5 cm | | Dimension B: 2.3 cm | + + | ABDOMINAL AORTA (BIFURCATION) | | Dimension A: 2.4 cm | | Dimension B: 2.3 cm | . . SCAN INFO GENERAL CONTRAST AGENT TYPE: Dotarem LOT NUMBER: [id number] EXPIRATION DATE: 2019-04-17 00:00:00 VOLUME ADMINISTERED: 25 ml DOSAGE FOR 0.5M: 0.15 mmol/kg SERUM CREATININE: 0.7 sCr GFR: 92.34 ml/min/1.73m^2 CREATININE DATE: 2018-03-09 00:00:00 SEDATION SEDATION USED?: No PULSE SEQUENCE PULSE SEQUENCES: Single-Shot SSFP, IR GRE - Segmented, IR SSFP - Single Shot, Single Shot BB CROW, SSFP Cine, Phase Contrast Velocity Mapping, 3D MRA w and w/o contrast SETUP TYPE: Clinical INPATIENT: No INCOMPLETE SCAN: No REASON(S) FOR SCAN: Aortic Dissection, Aortic valve (evaluate), Congenital Heart Disease REFERRING PHYSICIAN: Lewis Esparza MD ATTENDING PHYSICIAN: Lewis Esparza MD TECHNOLOGIST: Giovanni Rubio Patient Account [id number] CPT Codes 36756, 54178, 46333, 73498 ICD10 Codes I71.02, I71.01, I71.2 ADDITIONAL NOTES [id number] Report generated by [employer], a product of [employer] Performing Organization Address [facility] [place] Phone Number [facility] [address] [place] [address] Estimated GFR (03/09/2018 7:42 AM CDT) GFR Non Af Amer 87 mL/min/1.73 m2 [facility] DEPARTMENT OF PATHOLOGY AND GENOMIC MEDICINE GFR Af Amer >90 mL/min/1.73 m2 [facility] DEPARTMENT OF Comment: PATHOLOGY AND GENOMIC Chronic kidney disease: <60 mL/min/1.73m2 MEDICINE Kidney failure: <15 mL/min/1.73m2 The estimated GFR is calculated from the IDMS-traceable Modification of Diet in Renal Disease Equation. The accuracy of the calculation is poor when the creatinine is normal. Calculated values >90 mL/min/1.73m2 are not reported. This equation has not been validated in children (<18 years), women, the elderly (>70 years), or ethnic groups other than Caucasians and Americans. Specimen Blood Performing Organization Address [facility] Phone Number [facility] DEPARTMENT OF PATHOLOGY AND [address] [place] [address] [place] POC panel (03/09/2018 7:42 AM CDT) POC creatinine 0.7 0.5 - 0.9 mg/dl [facility] DEPARTMENT OF PATHOLOGY AND GENOMIC MEDICINE POC hematocrit 42 37 - 47 % [facility] DEPARTMENT OF PATHOLOGY AND Comment: GENOMIC MEDICINE Meter ID: [id number] Paradichlorobenzene Tender: Dennys Mclaughlin Performing Organization Address City/State/Zipcode Phone Number [facility] DEPARTMENT OF PATHOLOGY AND [address] [place] [address] GENOMIC MEDICINE Pv transcranial Doppler intracranial arteries (03/08/2018 11:00 AM CDT) Narrative Performed At Clinical Indications/Diagnosis: Equipment: thesixtyone PMD 150 Vessel RIGHTLEFT Ophthalmic Artery Antegrade Antegrade Siphon normal normal Anterior Cerebral Artery Normal Normal Middle Cerebral Artery Normal- TIBI 5 Normal- TIBI 5 Posterior Cerebral ArteryNormal Normal Verterbral Artery Normal Normal Basilic Artery Normal Normal TCD MonitoringPositive Postive BHI: >0.69 (normal) NormalNormal Head Turning Findings: normal cerebral hemodynamic flow seen. normal distal ICA and vertibrobasilar flow seen.. Positive spontaneous emboli were detected with 12-15 emboli per min BHI: Right MCA=(43-32/32)x100/20=1.7 BHI: Left MCA=(49-39/39)x100/20=1.3 Physician Interpretation of TCD: 1) There is no stenosis in the distal internal carotid arteries or vertebrobasilar arteries. 2) No hemodynamically significant intracranial stenoses in the major branches of the [place]. 3) Spontaneous emboli were detected during monitoring. 4) The cerebrovascular reserve is normal on breath holding. Recommend ultrasound follow-up in 1-2 years or sooner if symptoms develop. Us carotid duplex (03/08/2018 11:00 AM CDT) R CCA Mid 27.00 cm/s cm/s R CCA Mid 123.00 cm/s cm/s L CCA Mid 17.00 cm/s cm/s L CCA Mid 124.00 cm/s cm/s L ECA Prox 6.00 cm/s cm/s L ECA Prox 93 cm/s cm/s R ECA Prox 11.00 cm/s cm/s L ICA Prox 31 cm/s cm/s L ICA Prox 82 cm/s cm/s R ICA Prox 33 cm/s cm/s R ICA Prox 82 cm/s cm/s L ICA/CCA Ratio 0.8 cm/s R ICA/CCA Ratio 0.9 cm/s R ICA Dist 31 cm/s cm/s R ICA Mid 41 cm/s cm/s L ICA Dist 33 cm/s cm/s L ICA DIST 98 cm/s cm/s R Vert Art 9.00 cm/s cm/s R ECA Prox 94.00 cm/s cm/s L ICA Mid 28 cm/s cm/s L ICA Mid 88 cm/s cm/s R ICA Dist 76 cm/s cm/s R ICA Mid 110 cm/s cm/s L Vert Art 10.00 cm/s cm/s L Vert Art 30 cm/s cm/s R Vert Art 36.00 cm/s cm/s Narrative Performed At Physician Interpretation of Carotid Doppler: 1) There is no significant plaque in the bilateral carotid arteries. 2) There are no hemodynamically significant stenoses. 3) Both vertebral arteries flow antegrade. Recommend ultrasound follow-up in 1-2 years or sooner if symptoms develop. after 11/26/2017 Insurance Payer Benefit Plan / Group Subscriber ID Type Phone Address [employer] HMO GOLD [employer]US MEDICARE xxxxxxxxx HMO [phone] [place] [address] Sharron Bennett [employer] Democrat Self 1960 [phone] [place] [address] Advance Directives Patient has advance care planning documents on file. For more information, please contact:[place] [address]
[2018-11-27] MEDS ORDERED: PHENYLEPHRINE 0.5% NOSE 15ML NAS ONE (08:25)
--- NOTE | 2018-11-27 12:05 | EDPHYS ---
Physician Documentation [facility] Name: Sharron Botello Age: 58 yrs Sex: Female : 1960 Arrival Date: 11/27/2018 Time: 08:01 Bed 20 Private MD: Out, [facility] ED Physician Jeffery Irvin HPI: 11/27 08:24 This 58 yrs old Female presents to ER via Ambulatory with complaints of Nose rn Bleed. 08:24 The patient presents with a nose bleed. Onset: The symptoms/episode began/occurred this rn morning. Modifying factors: The symptoms are alleviated by nothing. the symptoms are aggravated by blowing nose. Severity of symptoms: At their worst the symptoms were mild in the emergency department the symptoms have improved. The patient has not experienced similar symptoms in the past. Reports on coumadin, no recent changes, + nosebleed since this morning. Reports concerned because has heart problems, no syncope. NO trauma. No sob or lightheaded. . Historical: - Allergies: 08:10 No Known Allergies; hb - Home Meds: 08:10 Coumadin Oral [Active]; Fluoxetine Oral [Active]; tramadol Oral [Active]; atorvastatin hb oral oral [Active]; Metoprolol Tartrate Oral [Active]; losartan oral oral [Active]; Lasix Oral [Active]; Flonase Nasal [Active]; - PSHx: 08:10 Balloon Sinuplasty; Aortic Arch; Aortic Valve; hb - Immunization history:: Adult Immunizations up to date. - Social history:: Smoking status: Patient/guardian denies using tobacco. - Ebola Screening: : No symptoms or risks identified at this time. - Family history:: not pertinent. - Hospitalizations: : No recent hospitalization is reported. ROS: 08:24 Constitutional: Negative for fever, chills, and weight loss, ENT: + nosebleed rn spine: Negative for chest pain, palpitations, and edema, Respiratory: Negative for shortness of breath, cough, wheezing, and pleuritic chest pain, Abdomen/GI: Negative for abdominal pain, nausea, vomiting, diarrhea, and constipation, MS/Extremity: Negative for injury and deformity, Skin: Negative for injury, rash, and discoloration, Neuro: Negative for headache, weakness, numbness, tingling, and seizure. Exam: 08:24 Constitutional: This is a well developed, well nourished patient who is awake, alert, rn appears anxious, coughing some oral blood ENT: + very slow bleed right nare Neuro: Awake and alert, GCS 15, oriented to person, place, time, and situation. Cranial nerves II-XII grossly intact. Motor strength 5/5 in all extremities. Sensory grossly intact. Vital Signs: 08:07 BP 128 / 58; Pulse 82; Resp 16; Temp 97.8; Pulse Ox 100% on R/A; Pain 0/10; hb 10:00 BP 131 / 61; Pulse 84; Resp 18; Pulse Ox 99% on R/A; em 11:09 BP 115 / 66; Pulse 52; Resp 16; Pulse Ox 99% on R/A; em 12:34 BP 112 / 67; Pulse 61; Resp 18; Pulse Ox 99% on R/A; em Procedures: 10:48 Epistaxis treatment: A small amount of bleeding noted from Treated using Oxymetazoline rn sprays, anterior packing, rhino rocket, Bleeding stopped. MDM: 08:03 Patient medically screened. rn 10:48 ED course: bleeding has decreased tremendously, removed packing because was still rn oozing, and thought being that needed posterior packing, once removed, bleeding seems to have stopped, now just has to remove posterior clot. . 11:14 ED course: Bleeding started again after patient blowing nose and removing posterior rn pharyngeal clot. Ant/post rhino rocket placed.. 12:02 Differential diagnosis: spontaneous epistaxis. Data reviewed: vital signs, nurses rn notes, and as a result, I will discharge patient. Counseling: I had a detailed discussion with the patient and/or guardian regarding: the historical points, exam findings, and any diagnostic results supporting the discharge/admit diagnosis, the need for outpatient follow up, to return to the emergency department if symptoms worsen or persist or if there are any questions or concerns that arise at home. Response to treatment: the patient's symptoms have mildly improved after treatment, and as a result, I will discharge patient. ED course: UNable to completely stop bleeding, unable to contact Dr. Valadez, called but no answer, patient and state prefer to f/u with their ENT doctor, have already contacted them, plan is to meet in ER in [place], patient requested soft packing of left nare for travel control, placed and improved. Concern is that she has posterior bleed. Normal vitals, no need for emergent reversal of coumadin at this point. . Administered Medications: 08:15 Drug: Arik-Synephrine [place] 0.5 % 2 sprays {Note: administered by Dr. Irvin.} Route: em Intranasal; Site: both nares; 10:44 Follow up: Response: No adverse reaction; Marked relief of symptoms em Disposition: 11/27/18 12:04 Discharged to Home. Impression: Epistaxis. - Condition is Stable. - Discharge Instructions: Nosebleed, Adult. - Medication Reconciliation Form, Thank You Letter, Antibiotic Education, Prescription Opioid Use form. - Follow up: Private Physician; When: Upon discharge from the Emergency Department; Reason: Recheck today's complaints, Re-evaluation by your physician. - Problem is new. - Symptoms have improved. Signatures: Jl Riley, CARD PLACER CARD PLACER em Jeffery Irvin MD MD rn Baxter, Heather, RN RN Corrections: (The following items were deleted from the chart) 13:00 12:04 11/27/2018 12:04 Discharged to Home. Impression: Epistaxis. Condition is Stable. em Forms are Medication Reconciliation Form, Thank You Letter, Antibiotic Education, Prescription Opioid Use. Follow up: Private Physician; When: Upon discharge from the Emergency Department; Reason: Recheck today's complaints, Re-evaluation by your physician. Problem is new. Symptoms have improved. rn
--- NOTE | 2018-11-27 12:05 | ER ---
Nurse's Notes [facility] Name: Sharron Botello Age: 58 yrs Sex: Female : 1960 Arrival Date: 11/27/2018 Time: 08:01 Bed 20 Private MD: Out, [facility] Diagnosis: Epistaxis Presentation: 11/27 08:06 Presenting complaint: Nosebleed upon waking today. Pt is 8 days s/p balloon sinuplasty. hb Transition of care: patient was not received from another setting of care. Onset of symptoms was November 27, 2018. Risk Assessment: Do you want to hurt yourself or someone else? Patient reports no desire to harm self or others. Care prior to arrival: None. 08:06 Method Of Arrival: Ambulatory hb 08:06 Acuity: DAVION 3 hb Historical: - Allergies: 08:10 No Known Allergies; hb - Home Meds: 08:10 Coumadin Oral [Active]; Fluoxetine Oral [Active]; tramadol Oral [Active]; atorvastatin hb oral oral [Active]; Metoprolol Tartrate Oral [Active]; losartan oral oral [Active]; Lasix Oral [Active]; Flonase Nasal [Active]; - PSHx: 08:10 Balloon Sinuplasty; Aortic Arch; Aortic Valve; hb - Immunization history:: Adult Immunizations up to date. - Social history:: Smoking status: Patient/guardian denies using tobacco. - Ebola Screening: : No symptoms or risks identified at this time. - Family history:: not pertinent. - Hospitalizations: : No recent hospitalization is reported. Screenin:10 Abuse screen: Denies threats or abuse. Denies injuries from another. Nutritional hb screening: No deficits noted. Tuberculosis screening: No symptoms or risk factors identified. Fall Risk None identified. Assessment: 08:12 General: Appears uncomfortable, Behavior is calm, cooperative, nose bleed started 0700 em this morning, reports being on Coumadin for cardiac problems. Pain: Denies pain. Neuro: Level of Consciousness is awake, alert, obeys commands, Oriented to person, place, time, situation, Denies headache. Cardiovascular: Capillary refill < 3 seconds Patient's skin is warm and dry. Respiratory: Airway is patent Respiratory effort is even, unlabored, Respiratory pattern is regular, symmetrical. GI: Abdomen is flat. EENT: Nares with bleeding noted on right. Derm: Skin is intact, is healthy with good turgor, Skin is pink, warm \T\ dry. Musculoskeletal: Range of motion: intact in all extremities. 08:15 Reassessment: nose clamp applied. em 08:19 Reassessment: I agree with previous assessment. hb 08:43 Reassessment: Patient appears in no apparent distress at this time. provider at em bedside, pt reports bleeding has improved, blood clots noted. 09:35 Reassessment: Dr. Irvin at bedside. em 10:23 Reassessment: reports Rhino rocket is helping, pt reports small amount of drainage, em spitting blood, bleeding in right nare has stopped. 10:55 Reassessment: Patient appears in no apparent distress at this time. pt blew out em moderate size blood clot, bleeding started again, placed nose clamp, provider notified. 11:07 Reassessment: Patient appears in no apparent distress at this time. Patient and/or em family updated on plan of care and expected duration. Pain level reassessed. Patient is alert, oriented x 3, equal unlabored respirations, skin warm/dry/pink. Dr. Irvin reinserted Rhino rocket into the right nare, bleeding has decreased, will continue to monitor. 11:56 Reassessment: Patient appears in no apparent distress at this time. Patient and/or em family updated on plan of care and expected duration. Pain level reassessed. Patient is alert, oriented x 3, equal unlabored respirations, skin warm/dry/pink. Dr. Irvin at bedside, placed epitaxis packing into left nare due to drainage, pt tolerated well. 12:34 Reassessment: bleeding increased, Dr. Irvin notified, placed Rhino rocket in the left em nare, pt tolerated well. Vital Signs: 08:07 BP 128 / 58; Pulse 82; Resp 16; Temp 97.8; Pulse Ox 100% on R/A; Pain 0/10; hb 10:00 BP 131 / 61; Pulse 84; Resp 18; Pulse Ox 99% on R/A; em 11:09 BP 115 / 66; Pulse 52; Resp 16; Pulse Ox 99% on R/A; em 12:34 BP 112 / 67; Pulse 61; Resp 18; Pulse Ox 99% on R/A; em ED Course: 08:01 Patient arrived in ED. sb2 08:01 Out, [facility] is Private Physician. sb2 08:02 Jeffery Irvin MD is Attending Physician. rn 08:07 Triage completed. hb 08:08 Jl Riley LVN is Primary Nurse. em 08:08 Arm band placed on. hb 08:10 Patient has correct armband on for positive identification. Bed in low position. Call light in reach. Side rails up X 1. 09:04 Assist provider with nosebleed control using Afrin sprays, rhino rocket placed for em extensive packing needs, Bleeding from right nares. Set up for procedure. Performed by Jeffery Irvin MD Bleeding decreased. Patient tolerated well. Administered Medications: 08:15 Drug: Arki-Synephrine [place] 0.5 % 2 sprays {Note: administered by Dr. Irvin.} Route: em Intranasal; Site: both nares; 10:44 Follow up: Response: No adverse reaction; Marked relief of symptoms em Outcome: 12:04 Discharge ordered by MD. rn 13:00 Discharged to home ambulatory, with family. em 13:00 Condition: stable 13:00 Discharge instructions given to patient, family, Instructed on discharge instructions, follow up and referral plans. Demonstrated understanding of instructions, follow-up care. 13:00 Patient left the ED. em Signatures: Jl Riley LVN LVN em Jeffery Irvin MD MD rn Baxter, Heather, RN RN hb Billeau, Sheri sb2 Corrections: (The following items were deleted from the chart) 12:08 09:04 Assist provider with nosebleed control using Afrin sprays, rhino rocket placed em for extensive packing needs, Bleeding from right nares. Set up for procedure. Performed by Jeffery Irvin MD Bleeding decreased. Patient tolerated well. em
== END 2018-11-27 13:00 | disposition home or self-care (01) ==
LOC: ER 07:59
PROC: 2Y41X5Z Packing of Nasal Region using Packing Material (ICD-10-PCS; principal; 2018-11-27)
DX: R04.0 Epistaxis (principal); Z79.01 Long term (current) use of anticoagulants; Z79.899 Other long term (current) drug therapy
CPT/HCPCS: 30901; 99283

== ENCOUNTER 2023-08-27 12:49 | Emergency (ER) | payer OTHER ==
--- OUTSIDE RECORDS SUMMARY | 2023-08-27 12:56 | XMS REPORT | Continuity of Care Document ---
:[address] [facility] t Address [address] [place] [address] [address] [place] [address] Care Team Providers Name Role Phone Latoya BLOUNT, Located Within [facility] Primary Care Physician Garland Mayers Attending Clinician Unavailable SIXTO KIRKLAND Attending Clinician Unavailable SIXTO KIRKLAND Attending Clinician Unavailable Sara Rios LVN Attending Clinician Unavailable Lewis Esparza MD Attending Clinician Zahira Benitez MA Attending Clinician Unavailable Sobia Perrin RN Attending Clinician Unavailable Shoshana Lopes MD Attending Clinician Zulma Mercer MA Attending Clinician Unavailable Taqueria Funez MD Attending Clinician Referred, Self Attending Clinician Unavailable Sarai Corado MA Attending Clinician Unavailable Camila DONNELLY, Sonia Attending Clinician Unavailable Joseph Acosta MA Attending Clinician Unavailable Killian Riley MD Attending Clinician Maite Mitchell Attending Clinician Radha Jain NP Attending Clinician Mayra Olvera MA Attending Clinician Unavailable Robbi HE, Gris Attending Clinician Unavailable [email or web address]_N Attending Clinician Unavailable Connor Klein Alejandra Attending Clinician [phone] Connor Klein Attending Clinician Unavailable EVE PAGE Attending Clinician Unavailable RICKY PATTERSON Attending Clinician Unavailable JOHNNIE RAVI Attending Clinician Unavailable DANIELE PENN Attending Clinician Unavailable Referred, Self Admitting Clinician Unavailable KILLIAN RILEY Admitting Clinician Unavailable [email or web address]_N Admitting Clinician Unavailable Connor Klein Admitting Clinician Unavailable Physician, No Primary or Family Admitting Clinician Unavaila ble Payers Payer Name Policy Type Policy Effective Date Expiration Date Sour ce Number [employer] MEDICARE 53 [id number] 2020 [facility] 00:00:00 [facility] HU[employer]NA (MEDICARE [id number] REPLACEMENT/ADVAN TAGE - PPO) HU[employer] - GOLD [id number] PLUS (MEDICARE REPLACEMENT HMO) HU[employer]NA CHOICE [id number] 2019 00:00:00 Problems Condition Condition Condition Status Onset Resolution Last Treating Co mments Source Name Details Category Date Date Treatment Clinician Date Aneurysm Aneurysm Disease Active Metho di of of 03-06 st reimplante reimplante 00:00: Ho barbara d d 00 l coronaries coronaries identified identified on echo on echo 03/10 03/10 Loeys-Diet Loeys-Diet Disease Active M 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 3 00:00: Hospita 00 l Closed Closed Disease Active Methodi nondisplac nondisplac 4-14 st ed ed 00:00: Hospita fracture fracture 00 l of right of right ischium ischium with with routine routine healing healing Closed Closed Disease Active Methodi nondisplac nondisplac 01-12 st ed ed 00:00: Hospita fracture fracture 00 l of left of left ischium ischium Right hip Right hip Disease Active Met hodi pain pain 01-12 st 00:00: Hospita 00 l Obstructiv Obstructiv Disease Active 2019-10 M ethodi e sleep e sleep 2-21 st apnea apnea 00:00: Hospita 00 l 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 ethodi zoey zoey 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 00:00: Hospit a thoracic thoracic 00 l aortic aortic aneurysm aneurysm Bronchitis Bronchitis Disease Active 2018-10 M ethodi 1-15 st 00:00: Hospita 00 l Malignant Malignant Disease Active 2018-10 Met hodi hypertensi hypertensi 1-15 st on on 00:00: Hospita 00 l Vitamin D Vitamin D Disease Active 2018-10 Met hodi deficiency deficiency 1-15 st 00:00: Hospita 00 l Degenerati Degenerati Disease Active 2015-10 M ethodi on of on of 0-10 st interverte interverte 00:00: Ho spita bral disc bral disc 00 l of of cervical cervical region region Acute Acute Disease Active 2015-10 Methodi upper upper 0-10 st respirator respirator 00:00: Ho spita y y 00 l infection infection 04/05/12 04/05/12 Disease Active 2015-10 Methodi S/p S/p 0-10 st Bentall Bentall 00:00: Hospita #25 mech #25 mech 00 l AVR (St AV[facility] ([facility] [place] [place]) Cerebrovas Cerebrovas Disease Active 2015-10 M ethodi cular cular 0-10 st accident accident 00:00: Hospit a (CVA) (CVA) 00 l Cervical Cervical Disease Active 2015-10 Metho di radiculiti radiculiti 0-10 st s s 00:00: Hospita 00 l Cluster Cluster Disease Active 2015-10 Methodi headaches headaches 0-10 st 00:00: Hospita 00 l Community Community Disease Active 2015-10 Met hodi acquired acquired 0-10 st pneumonia pneumonia 00:00: [facility] 00 l Chronic Chronic Disease Active 2015-10 Methodi diastolic diastolic 0-10 st congestive congestive 00:00: Ho spita heart heart 00 l failure failure Degenerati Degenerati Disease Active 2015-10 M ethodi on of on of 0-10 st interverte interverte 00:00: Ho spita bral disc bral disc 00 l of of cervical cervical region region Degenerati Degenerati Disease Active 2015-10 M ethodi on of on of 0-10 st interverte interverte 00:00: Ho spita bral disc bral disc 00 l of lumbar of lumbar region region Depression Depression Disease Active 2015-10 M ethodi 0-10 st 00:00: Hospita 00 l 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 ethodi of aorta of aorta 0-10 st 00:00: Hospita 00 l Essential Essential Disease Active 2015-10 Met hodi hypertensi hypertensi 0-10 st on on 00:00: Hospita 00 l Hyperlipid Hyperlipid Disease Active 2015-10 M ethodi emia emia 0-10 st 00:00: Hospita 00 l Scoliosis Scoliosis Disease Active 2015-10 Met hodi (and (and 0-10 [address] kyphoscoli kyphoscoli 00:00: Ho spita osis), osis), 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 0-10 st 00:00: Hospita 00 l 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-10 st Pseudoaneu Pseudoaneu 00:00: Ho spita rysm rysm 00 l 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 0-10 st deficit as deficit as 00:00: Ho spita late late 00 l effect of effect of cerebrovas cerebrovas cular cular accident accident Aneurysm Aneurysm Disease Active 2015-10 Metho di of of 0-10 st vertebral vertebral 00:00: [facility]osp [facility] artery artery 00 l Temporary Temporary Disease Active 2015-10 Met hodi cerebral cerebral 0-10 st vascular vascular 00:00: Hospit a dysfunctio dysfunctio 00 l n n [id number] GERD Problem Common without Spirit esophagiti - [facility] s [facility] [id number] Current Problem Commo n use of Spirit fdc - [facility] anticoagul [facility] [id number] Moderate Problem Commo n major Spirit depression - [facility] , single [facility] [id number] Benzodiaze Problem Co mmon pine Spirit dependence - [facility] , [facility] [id number] H/O aortic Problem C ommon 100 valve Spirit replacemen - [facility] t [facility] [id number] Non-season Problem Com mon al Spirit allergic - [facility] rhinitis, [facility] [id number] Connective Problem Co mmon tissue Spirit disease - [facility] [id number] Nonalcohol Problem Co mmon ic fatty Spirit liver - [facility] disease [facility] [id number] Chronic Problem Commo n systolic Spirit congestive - [facility]I heart failure [facility] [id number] History of Problem Co mmon myocardial Spirit infarction - [facility] [id number] Aortic Problem Common aneurysm Spirit of - CHI unspecifie St d site, [facility] without Medical rupture Center Decreased Decreased Problem Com mon hearing hearing Spirit [facility] [id number] Panic Problem Common disorder Spirit [episodic - CHI paroxysmal St anxiety] [facility] [id number] Generalize Problem Com mon d anxiety [facility] disorder [facility] [id number] Degenerati Problem Com mon on of Spirit interverte - [facility] bral disc [facility] lumbosacra Medica l l region Center [id number] Absence of Problem Co mmon both Spirit cervix and - [facility]I uterus, [facility] [id number] Brain Problem Common aneurysm Spirit [facility] [id number] Mixed Problem Common hyperlipid Spirit emia [facility] Aortic Aortic Problem Active 2016-12-06 Farhat joan valve valve 05:26:44 l stenosis, stenosis, Herm marco unspecifie unspecifie d etiology d etiology Active Problem 12/06/2016 Devin Melgar Radiculopa Radiculop Problem Active 2016-12-06 Memoria thy, athy, 05:26:44 l cervical cervical Jeffery n region region Active Problem 12/06/2016 Devin Melgar Acute Acute Diagnosis Active 2016-12-06 Mem oria bronchitis bronchitis 05:26:44 l Active Claus Diagnosis 12/06/2016 Devin Melgar Hyperlipem Hyperlipe Diagnosis Active 2016-12-06 Memoria ia, mixed jamilah, mixed 05:26:44 l Active Moose Diagnosis 12/06/2016 Devin Melgar snf snf Diagnosis Active 2016-12-06 Memoria (current) (current) 05:26:44 l use of use of Claus anticoagul anticoagul ants ants Active Diagnosis 12/06/2016 Devin Melgar Benign Benign Problem Active 2016-12-06 Farhat joan essential essential 05:26:44 l HTN HTN Active Jeffery n Problem 12/06/2016 Devin Melgar Urinary Urinary Diagnosis Active 2016-08-17 Memoria tract tract 04:12:09 l infection, infection, He rmann site not site not specified specified Active Diagnosis 08/17/2016 Devin Melgar Major Major Problem Active 2016-12-06 Memor ia depressive depressive 05:26:44 l disorder, disorder, Herm marco single single episode, episode, unspecifie unspecifie d d Active Problem 12/06/2016 Devin Davonte Melgar Acute Acute Problem Active [facility] sinusitis Sinusitis Medi [place] Acute Acute Problem Active [facility] pharyngiti Pharyngiti Me dical s s 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 N.K.D.A. Active Info Not Farhat joan Available 2-09 l 00:00: Claus 00 No Known Propensi Active 2015-10 Method i Drug ty to 0-10 st Allergie adverse 00:00: Hospita s reaction 00 l s to drug NO KNOWN Drug Active [facility] ALLERG Class ity of S [facility] Family History Family Member Diagnosis Comments Start Date Stop Date Source Natural father [facility] Paternal uncle Aneurys[facility] Social History Social Habit Start Date Stop Date Quantity Comments Source Sexual orientation 2019-08-26 Heterosexual Meth odist 13:39:21 (finding) Hospital Sex Assigned At [facility] History of tobacco Chews Tobacco Met [facility] use Hospital Alcohol intake 2023-05-08 2023-05-08 Current drinker of Me thodist 00:00:00 00:00:00 alcohol (finding) Hospita l History of Social 2023-05-08 2023-05-[address] function 00:00:00 00:00:00 Hospital Tobacco Comment 2022-11-24 2022-11-24 smoker in her teens [facility] Tobacco use and 2022-11-24 2022-11-24 Smokeless tobacco [facility] exposure 00:00:00 00:00:00 non-user Hospital TobaccoUse: 2016-11-27 2016-11-27 [facility] Herm marco 00:00:00 00:00:00 Alcohol Comment 2016-07-28 2016-07-28 "occasional" Methodi st 00:00:00 00:00:00 Hospital Smoking Status Start Date Stop Date Source Former Smoker 2023-06-26 00:00:00 2023-06-26 00:00:00 Common S pirit - [facility] Ce nter Never smoked tobacco [facility] Medications Ordered Filled Start Stop Current Ordering Indication Dosage Frequency Signature Comments Components Source Medication Medication Date Date Medication? Clinician (SIG) Name Name losartan Yes 50mg Q.5D Take 1 Methodi (COZAAR) 50 9-21 tablet (50 st MG tablet 00:00: mg total) Hos jesus 00 by mouth 2 l (two) times a day. furosemide Yes TAKE 1 Metho di (LASIX) 20 9-[address] mg tablet 00:00: EVERY DAY Hos jesus 00 l losartan 2022- No TAKE 1 Method i (COZAAR) 50 9-15 09-[address] MG tablet 00:00: 00:00 TWICE Hospit a 00 :00 DAILY l diphenhydrA Yes 25mg QD Take 1 Meth lonnie MINE 7-21 tablet (25 st (BENADRYL) 10:35: mg total) Ho spita 25 mg 43 by mouth l tablet nightly as needed for sleep. FLUoxetine Yes 20mg QD Take 1 Metho di (PROzac) 20 7-[address] MG capsule 10:35: (20 mg Hospi ta 43 total) by l mouth daily. cetirizine Yes QD Take by Meth lonnie HCl (ZYRTEC 7-[address] ORAL) 10:35: daily. Hospita 43 l montelukast Yes 10mg QD Take 1 Meth lonnie (SINGULAIR) 7-21 tablet (10 st 10 mg 10:35: mg total) Hospita tablet 43 by mouth l nightly. furosemide 0 2022- No TAKE 1 Meth lonnie (LASIX) 20 4-18 09-[address] mg tablet 00:00: 00:00 EVERY DAY Ho spita 00 :00 l acetaminoph 2022-0 Yes [id number] 1{tbl} Q6H Take 1 M ethodi en-codeine 3-[address] (TYLENOL 00:00: mouth Hospita WITH 00 every 6 l CODEINE #3) (six) 300-30 mg hours as per tablet needed for moderate pain .acute pain. Doxycycline Doxycycline 2022- No 1{capsu BID Doxycyclin Hyclate 100 Hyclate 100 11-26 le} e Hyclate MG MG 00:00: 00:00 100 MG 00 :00 Doxycycline Doxycycline 2022- No 1{capsu BID Doxycyclin Hyclate 100 Hyclate 100 11-26 le} e Hyclate MG MG 00:00: 00:00 100 MG 00 :00 diphenhydrA Yes 25mg QD Take 1 Meth lonnie MINE 2-06 tablet (25 st (BENADRYL) 11:23: mg total) Ho spita 25 mg 18 by mouth l tablet nightly as needed for sleep. FLUoxetine Yes 20mg QD Take 1 Metho di (PROzac) 20 2-[address] MG capsule 11:23: (20 mg Hospi ta 18 total) by l mouth daily. cetirizine Yes QD Take by Meth lonnie HCl (ZYRTEC 2-[address] ORAL) 11:23: daily. Hospita 18 l montelukast Yes 10mg QD Take 1 Meth lonnie (SINGULAIR) 2-06 tablet (10 st 10 mg 11:23: mg total) Hospita tablet 18 by mouth l nightly. warfarin Yes TAKE 2 Methodi (COUMADIN) 2-[address] 5 MG tablet 00:00: EVERY DAY H ospita 00 OR l DIRECTED BY MD OFFICE warfarin Yes TAKE 2 Methodi (COUMADIN) 2-[address] 5 MG tablet 00:00: EVERY DAY H ospita 00 OR l DIRECTED BY MD OFFICE losartan Yes TAKE 1 Methodi (COZAAR) 50 2-[address] MG tablet 00:00: TWICE Hospita 00 DAILY l losartan 2022- No TAKE 1 Method i (COZAAR) 50 2-03 09-[address] MG tablet 00:00: 00:00 TWICE Hospit a 00 :00 DAILY l diazepam 2021-10 No 5mg QD Take 5 mg Met hodi (VALIUM) 5 -19 11-[address] MG tablet 13:23: 00:00 daily. Hospi ta 43 :00 l diazepam 2021-10- No 5mg QD Take 5 mg Met hodi (VALIUM) 5 11-[address] MG tablet 13:23: 00:00 daily. Hospi ta 43 :00 l losartan 2021-10- No 50mg Q.5D Take 1 Method i (COZAAR) 50 11-05 tablet (50 s t MG tablet 00:00: 05:59 mg total) Ho spita 00 :00 by mouth 2 l (two) times a day. losartan 2021-10- No 50mg Q.5D Take 1 Method i (COZAAR) 50 11-05 07-21 tablet (50 s t MG tablet 00:00: 00:00 mg total) Ho spita 00 :00 by mouth 2 l (two) times a day. atorvastati 2021-10- No [id number] 20mg QD Take 1 Methodi n (LIPITOR) 10-28 tablet (20 s t 20 mg 00:00: 00:00 mg total) Hospit a tablet 00 :00 by mouth l daily for 30 days. atorvastati 2021-10- No [id number] 20mg QD Take 1 Methodi n (LIPITOR) 10-28- tablet (20 s t 20 mg 00:00: 00:00 mg total) Hospit a tablet 00 :00 by mouth l daily for 30 days. losartan 2021-10- No TAKE 1 Method i (COZAAR) 50 10-[address] MG tablet 00:00: 00:00 MOUTH Hospit a 00 :00 TWICE A l DAY losartan 2021-10- No TAKE 1 Method i (COZAAR) 50 10-[address] MG tablet 00:00: 00:00 MOUTH Hospit a 00 :00 TWICE A l DAY warfarin 2021-10 Yes TAKE TWO Metho di (COUMADIN) 1-[address] 5 MG tablet 00:00: DAILY OR Ho spita 00 l DIRECTED BY MD OFFICE furosemide 2021-10 Yes TAKE 1 Metho di (LASIX) 20 1-[address] mg tablet 00:00: EVERY DAY Hos jesus 00 l warfarin 2021-10- No TAKE TWO Meth lonnie (COUMADIN) 10-22 07-[address] 5 MG tablet 00:00: 00:00 DAILY OR H ospita 00 :00 l DIRECTED BY MD OFFICE furosemide 2021-10 No TAKE 1 Meth lonnie (LASIX) 20 10-22 04-[address] mg tablet 00:00: 00:00 EVERY DAY Ho spita 00 :00 l warfarin 2021-10 No Two Methodi (COUMADIN) 0-25 11-[address] 5 MG tablet 00:00: 00:00 daily or H ospita 00 :00 as l directed by MD office. warfarin 2021-10 No Two Methodi (COUMADIN) 0-25 11-[address] 5 MG tablet 00:00: 00:00 daily or H ospita 00 :00 as l directed by MD office. losartan 2021-10 No 50mg Q.5D Take 1 Method i (COZAAR) 50 0-25 11-09 tablet (50 s t MG tablet 00:00: 00:00 mg total) Ho spita 00 :00 by mouth 2 l (two) times a day. losartan 2021-10 No 50mg Q.5D Take 1 Method i (COZAAR) 50 0-25 11-09 tablet (50 s t MG tablet 00:00: 00:00 mg total) Ho spita 00 :00 by mouth 2 l (two) times a day. losartan 2021-10 No 50mg Q.5D Take 1 Method i (COZAAR) 50 0-25 10-25 tablet (50 s t MG tablet 00:00: 00:00 mg total) Ho spita 00 :00 by mouth 2 l (two) times a day. furosemide 2021- No TAKE 1 Meth lonnie (LASIX) 20 03-19 11-[address] mg tablet 00:00: 00:00 EVERY DAY Ho spita 00 :00 l Ca Cit 2021- No QD Take by Methodi Mal/Mgox/vi 5-20 05-[address] t 12:25: 00:00 daily. Hospita D3/Cu/zinc 42 :00 l (CALCIUM-MA G-VIT D3-COPPER-Z N ORAL) Azelastine Azelastine No 1{drop_ BID Azelastine HCl 0.05 % HCl 0.05 % 5-10 into_af HCl 0.05 % 00:00: fected_ 00 eye} Azelastine Azelastine No 1{drop_ BID Azelastine HCl 0.05 % HCl 0.05 % 5-10 into_af HCl 0.05 % 00:00: fected_ 00 eye} Azelastine Azelastine No 1{drop_ BID Azelastine HCl 0.05 % HCl 0.05 % 5-10 into_af HCl 0.05 % 00:00: fected_ 00 eye} Azelastine Azelastine No 1{drop_ BID Azelastine HCl 0.05 % HCl 0.05 % 5-10 into_af HCl 0.05 % 00:00: fected_ 00 eye} enoxaparin Method i (Lovenox) 02-04 05-[address] 80 mg/0.8 00:00: 00:00 SQ twice a H ospita mL syringe 00 :00 day or as l directed by MD office enoxaparin Method i (Lovenox) 01-24 05-[address] 80 mg/0.8 00:00: 00:00 SQ in Hospit a mL syringe 00 :00 abdomen l twice daily or as directed by MD office furosemide 20mg QD Take 1 Meth lonnie (LASIX) 20 01-09 06- tablet (20 st mg tablet 00:00: 00:00 mg total) Ho spita 00 :00 by mouth l daily. sodium,pota 2021- No Drink 1 Me thodi ssium,mag 3-15 - bottle as st sulfates 00:00: 00:00 directed [facility] (Suprep 00 :00 for dose 1 l Bowel Prep and 1 Kit) bottle as 17.5-3.13-1 directed .6 gram for dose recon soln 2. sodium,pota 2021- No Drink 1 Me thodi ssium,mag 3-15 - bottle as st sulfates 00:00: 00:00 directed [facility] (Suprep 00 :00 for dose 1 l Bowel Prep and 1 Kit) bottle as 17.5-3.13-1 directed .6 gram for dose recon soln 2. furosemide No 20mg QD Take 1 Meth lonnie (LASIX) 20 3-04 03-24 tablet (20 st mg tablet 00:00: 00:00 mg total) Ho spita 00 :00 by mouth l daily. hyoscyamine No .125mg Q4H Take 1 M ethodi (Levsin) 2-02 03-[address] 0.125 mg 00:00: 05:59 (0.125 mg Hos jesus tablet 00 :00 total) by l mouth every 4 (four) hours as needed for cramping for up to 30 days. 1 sublingual every 4 hours as needed warfarin 2020-10 Two Methodi (COUMADIN) 2-14 11-[address] 5 MG tablet 00:00: 00:00 daily or H ospita 00 :00 as l directed by MD office losartan 2020-10 No 50mg Q.5D Take 1 Method i (COZAAR) 50 2-14 10-24 tablet (50 s t MG tablet 00:00: 00:00 mg total) Ho spita 00 :00 by mouth 2 l (two) times a day. metoprolol 2020-10 Yes 50mg Q.5D Take 1 Metho di tartrate 1-12 tablet (50 st (LOPRESSOR) 00:00: mg total) H ospita 50 mg 00 by mouth 2 l tablet (two) times a day. metoprolol 2020-10 Yes 50mg Q.5D Take 1 Metho di tartrate 1-12 tablet (50 st (LOPRESSOR) 00:00: mg total) H ospita 50 mg 00 by mouth 2 l tablet (two) times a day. furosemide No 20mg QD Take 1 Meth lonnie (LASIX) 20 5-14 03-04 tablet (20 st mg tablet 00:00: 00:00 mg total) Ho spita 00 :00 by mouth l daily. omeprazole 2019-10 Yes 40mg QD 1 capsule Me thodi (PriLOSEC) 0-22 ([address] 40 MG 00:00: total) Hospita capsule 00 daily. l omeprazole 2019-10 Yes 40mg QD 1 capsule Me thodi (PriLOSEC) 0-22 ([address] 40 MG 00:00: total) Hospita capsule 00 daily. l atorvastati 2021- No 1{tbl} QD 1 tablet Methodi n (LIPITOR) 02-13 11-[address] 10 MG 00:00: 00:00 Hospita tablet 00 :00 l atorvastati 2021- No 1{tbl} QD 1 tablet Methodi n (LIPITOR) 02-13 11-[address] 10 MG 00:00: 00:00 Hospita tablet 00 :00 l PROAIR 2016-10 Yes INHALE TWO Metho di RESPICLICK 0-05 (2) 00:00: PUFF(S) BY Hospita mcg/actuati 00 MOUTH l on aerosol EVERY 4 powdr HOURS. PRN breath activated PROAIR 2016-10 Yes Methodi RESPICLICK 0-05 00:00: Hospita mcg/actuati 00 l on aerosol powdr breath activated Dymista Yes Devin 1 puff in Me moria 2-18 Lock each l 05:26: nostril Claus 44 Diazepam Yes Devin 1 tablet Me moria 2-18 Lock as needed l 05:26: Claus 44 Deplin Yes Devin as Memoria 2-18 Lock directed l 05:26: Claus 44 Losartan Yes Devin 1 tablet Me moria Potassium 2-18 Lock l 05:26: Claus 44 HydrOXYzine Yes Devin 1 tablet Memoria HCl 2-18 Lock as needed l 05:26: Claus 44 Trazodone Yes Devin 1 tablet M emoria HCl 2-18 Lock at bedtime l 05:26: as needed Claus 44 Tramadol Yes Devin as Memori a HCl 2-18 Lock directed l 05:26: Claus 44 Aspir-81 Yes Devin 1 tablet Me moria 2-18 Lock l 05:26: Claus 44 Warfarin Yes Devin 1 tablet Me moria Sodium 2-18 Lock l 05:26: Claus 44 Furosemide Yes Devin 1 tablet Memoria 2-18 Lock l 05:26: Claus 44 Atorvastati 2017 Yes Devin 1 tablet Memoria n Calcium 2-18 Lock l 05:26: Claus 44 Metoprolol 2017 Yes Devin 1 tablet Memoria Tartrate 2-18 Lock with food l 05:26: Claus 44 Sertraline 0 Yes Devin 2 tablet Memoria HCl 2-18 Lock am l 05:26: Claus 44 ProAir HFA 2017 Yes Devin 2 to 3 Me moria 2-18 Lock puffs as l 05:26: needed Claus 44 Benzonatate Yes Devin 1 capsule Memoria 2-18 Lock as needed l 05:26: Claus 44 Dymista 2017 Yes Devin 1 puff in Me moria 2-18 Lock each l 05:26: nostril Claus 44 Diazepam Yes Devin 1 tablet Me moria 2-18 Lock as needed l 05:26: Claus 44 Deplin Yes Devin as Memoria 2-18 Lock directed l 05:26: Claus 44 Losartan 2017 Yes Devin 1 tablet Me moria Potassium 2-18 Lock l 05:26: Claus 44 HydrOXYzine Yes Devin 1 tablet Memoria HCl 2-18 Lock as needed l 05:26: Claus 44 Trazodone Yes Devin 1 tablet M emoria HCl 2-18 Lock at bedtime l 05:26: as needed Claus 44 Tramadol Yes Devin as Memori a HCl 2-18 Lock directed l 05:26: Claus 44 Metoprolol Yes Devin 1 tablet Memoria Tartrate 2-18 Lock with food l 05:26: Claus 44 Aspir-81 0 Yes Devin 1 tablet Me moria 2-18 Lock l 05:26: Claus 44 Warfarin 20170 Yes Devin 1 tablet Me moria Sodium 2-18 Lock l 05:26: Claus 44 Furosemide 0 Yes Devin 1 tablet Memoria 2-18 Lock l 05:26: Claus 44 Atorvastati 0 Yes Devin 1 tablet Memoria n Calcium 2-18 Lock l 05:26: Claus 44 Metoprolol 0 Yes Devin 1 tablet Memoria Tartrate 2-18 Lock with food l 05:26: Claus 44 Sertraline 0 Yes Devin 2 tablet Memoria HCl 2-18 Lock am l 05:26: Claus 44 Sertraline 2016- Yes Devin 2 tablet Memoria HCl 2-18 Lock am l 05:26: Claus 44 ProAir HFA Yes Devin 2 to 3 Me moria 2-18 Lock puffs as l 05:26: needed Claus 44 Benzonatate Yes Devin 1 capsule Memoria 2-18 Lock as needed l 05:26: Claus 44 Dymista Yes Devin 1 puff in Me moria 2-18 Lock each l 05:26: nostril Claus 44 Diazepam Yes Devin 1 tablet Me moria 2-18 Lock as needed l 05:26: Claus 44 Deplin Yes Devin as Memoria 2-18 Lock directed l 05:26: Claus 44 Losartan Yes Devin 1 tablet Me moria Potassium 2-18 Lock l 05:26: Claus 44 HydrOXYzine Yes Devin 1 tablet Memoria HCl 2-18 Lock as needed l 05:26: Claus 44 Trazodone Yes Devin 1 tablet M emoria HCl 2-18 Lock at bedtime l 05:26: as needed Claus 44 Tramadol Yes Devin as Memori a HCl 2-18 Lock directed l 05:26: Claus 44 Aspir-81 Yes Devin 1 tablet Me moria 2-18 Lock l 05:26: Claus 44 ProAir HFA Yes Devin 2 to 3 Me moria 2-18 Lock puffs as l 05:26: needed Claus 44 Warfarin Yes Devin 1 tablet Me moria Sodium 2-18 Lock l 05:26: Claus 44 Furosemide 0 Yes Devin 1 tablet Memoria 2-18 Lock l 05:26: Claus 44 Atorvastati Yes Devin 1 tablet Memoria n Calcium 2-18 Lock l 05:26: Claus 44 Metoprolol Yes Devin 1 tablet Memoria Tartrate 2-18 Lock with food l 05:26: Claus 44 Sertraline Yes Devin 2 tablet Memoria HCl 2-18 Lock am l 05:26: Claus 44 ProAir HFA Yes Devin 2 to 3 Me moria 2-18 Lock puffs as l 05:26: needed Claus 44 Benzonatate 2017 Yes Devin 1 capsule Memoria 2-18 Lock as needed l 05:26: Claus 44 Benzonatate 2017 Yes Devin 1 capsule Memoria 2-18 Lock as needed l 05:26: Claus 44 Dymista 2017 Yes Devin 1 puff in Me moria 2-18 Lock each l 05:26: nostril Claus 44 Diazepam 2017 Yes Devin 1 tablet Me moria 2-18 Lock as needed l 05:26: Claus 44 Metoprolol Yes Devin 1 tablet Memoria Tartrate 2-18 Lock with food l 05:26: Claus 44 Sertraline Yes Devin 2 tablet Memoria HCl 2-18 Lock am l 05:26: Claus 44 Deplin Yes Devin as Memoria 2-18 Lock directed l 05:26: Claus 44 ProAir HFA Yes Devin 2 to 3 Me moria 2-18 Lock puffs as l 05:26: needed Claus 44 Benzonatate Yes Devin 1 capsule Memoria 2-18 Lock as needed l 05:26: Claus 44 Dymista Yes Devin 1 puff in Me moria 2-18 Lock each l 05:26: nostril Claus 44 Diazepam Yes Devin 1 tablet Me moria 2-18 Lock as needed l 05:26: Claus 44 Deplin Yes Devin as Memoria 2-18 Lock directed l 05:26: Claus 44 Losartan Yes Devin 1 tablet Me moria Potassium 2-18 Lock l 05:26: Claus 44 HydrOXYzine Yes Devin 1 tablet Memoria HCl 2-18 Lock as needed l 05:26: Claus 44 Trazodone Yes Devin 1 tablet M emoria HCl 2-18 Lock at bedtime l 05:26: as needed Claus 44 Tramadol Yes Devin as Memori a HCl 2-18 Lock directed l 05:26: Claus 44 Aspir-81 0 Yes Devin 1 tablet Me moria 2-18 Lock l 05:26: Claus 44 Losartan 0 Yes Devin 1 tablet Me moria Potassium 2-18 Lock l 05:26: Claus 44 Warfarin Yes Devin 1 tablet Me moria Sodium 2-18 Lock l 05:26: Claus 44 Furosemide 2017-0 Yes Devin 1 tablet Memoria 2-18 Lock l 05:26: Claus 44 Atorvastati [id number] Yes Devin 1 tablet [facility]oria n Calcium 2-18 Lock l 05:26: Claus 44 HydrOXYzine 2017-0 Yes Devin 1 tablet [facility]oria HCl 2-18 Lock as needed l 05:26: Claus 44 Trazodone 2017-0 Yes Devin 1 tablet M emoria HCl 2-18 Lock at bedtime l 05:26: as needed Claus 44 Tramadol 2017-0 Yes Devin as Memori a HCl 2-18 Lock directed l 05:26: Claus 44 Aspir-81 0 Yes Devin 1 tablet Me moria 2-18 Lock l 05:26: Claus 44 Warfarin 20170 Yes Devin 1 tablet Me moria Sodium 2-18 Lock l 05:26: Claus 44 Dymista 0 Yes Devin 1 puff in Me moria 2-18 Lock each l 05:26: nostril Claus 44 Furosemide 2016-0 Yes Devin 1 tablet Memoria 2-18 Lock l 05:26: Claus 44 Atorvastati 20170 Yes Devin 1 tablet [facility]oria n Calcium 2-18 Lock l 05:26: Claus 44 Diazepam 2017-0 Yes Devin 1 tablet Me moria 2-18 Lock as needed l 05:26: Claus 44 Deplin [id number] Yes Devin as Memoria 2-18 Lock directed l 05:26: Claus 44 Losartan 2017-0 Yes Devin 1 tablet Me moria Potassium 2-18 Lock l 05:26: Claus 44 HydrOXYzine 20170 Yes Devin 1 tablet Memoria HCl 2-18 Lock as needed l 05:26: Claus 44 Trazodone 2017-0 Yes Devin 1 tablet M emoria HCl 2-18 Lock at bedtime l 05:26: as needed Claus 44 Tramadol 2017-0 Yes Devin as Memori a HCl 2-18 Lock directed l 05:26: Claus 44 Aspir-81 0 Yes Devin 1 tablet Me moria 2-18 Lock l 05:26: Claus 44 Warfarin 2017-0 Yes Devin 1 tablet Me moria Sodium 2-18 Lock l 05:26: Claus 44 Furosemide 2016-0 Yes Devin 1 tablet Memoria 2-18 Lock l 05:26: Claus 44 Atorvastati 2017-0 Yes Devin 1 tablet Memoria n Calcium 2-18 Lock l 05:26: Claus 44 Metoprolol 2017-0 Yes Devin 1 tablet [facility] Tartrate 2-18 Lock with food l 05:26: Claus 44 Sertraline 2016-0 Yes Devin 2 tablet [facility]oria HCl 2-18 Lock am l 05:26: Claus 44 ProAir HFA 2016-0 Yes Devin 2 to 3 Me moria 2-18 Lock puffs as l 05:26: needed Claus 44 Benzonatate Yes Devin 1 capsule Memoria 2-18 Lock as needed l 05:26: Claus 44 Dymista Yes Devin 1 puff in Me moria 2-18 Lock each l 05:26: nostril Claus 44 Diazepam Yes Devin 1 tablet Me moria 2-18 Lock as needed l 05:26: Claus 44 Deplin 0 Yes Devin as Memoria 2-18 Lock directed l 05:26: Claus 44 Losartan Yes Devin 1 tablet Me moria Potassium 2-18 Lock l 05:26: Claus 44 HydrOXYzine Yes Devin 1 tablet Memoria HCl 2-18 Lock as needed l 05:26: Claus 44 Trazodone Yes Devin 1 tablet M emoria HCl 2-18 Lock at bedtime l 05:26: as needed Claus 44 Tramadol Yes Devin as Memori a HCl 2-18 Lock directed l 05:26: Claus 44 Aspir-81 Yes Devin 1 tablet Me moria 2-18 Lock l 05:26: Claus 44 Warfarin Yes Devin 1 tablet Me moria Sodium 2-18 Lock l 05:26: Claus 44 Furosemide 0 Yes Devin 1 tablet Memoria 2-18 Lock l 05:26: Claus 44 Atorvastati 0 Yes Devin 1 tablet Memoria n Calcium 2-18 Lock l 05:26: Claus 44 HydrOXYzine 0 Yes Devin 1 tablet [facility]oria HCl 2-18 Lock as needed l 05:26: Claus 44 Aspir-81 0 Yes Devin 1 tablet Me moria 2-18 Lock l 05:26: Claus 44 Warfarin 2016-0 Yes Devin 1 tablet Me moria Sodium 2-18 Lock l 05:26: Claus 44 ProAir HFA Yes Devin 2 to 3 Me moria 2-18 Lock puffs as l 05:26: needed Claus 44 Metoprolol 2017- Yes Devin 1 tablet [facility] Tartrate 2-18 Lock with food l 05:26: Claus 44 Diazepam Yes Devin 1 tablet Me moria 2-18 Lock as needed l 05:26: Claus 44 Dymista 2017 Yes Devin 1 puff in Me moria 2-18 Lock each l 05:26: nostril Claus 44 Tramadol Yes Devin as Memori a HCl 2-18 Lock directed l 05:26: Claus 44 Furosemide Yes Devin 1 tablet Memoria 2-18 Lock l 05:26: Claus 44 Trazodone Yes Devin 1 tablet M emoria HCl 2-18 Lock at bedtime l 05:26: as needed Claus 44 Sertraline Yes Devin 2 tablet Memoria HCl 2-18 Lock am l 05:26: Claus 44 Benzonatate Yes Devin 1 capsule Memoria 2-18 Lock as needed l 05:26: Claus 44 Losartan Yes Devin 1 tablet Me moria Potassium 2-18 Lock l 05:26: Claus 44 Deplin Yes Devin as Memoria 2-18 Lock directed l 05:26: Claus 44 Atorvastati Yes Devin 1 tablet Memoria n Calcium 2-18 Lock l 05:26: Claus 44 HydrOXYzine Yes Devin 1 tablet Memoria HCl 2-18 Lock as needed l 05:26: Claus 44 Aspir-81 Yes Devin 1 tablet Me moria 2-18 Lock l 05:26: Calus 44 Warfarin Yes Devin 1 tablet Me moria Sodium 2-18 Lock l 05:26: Claus 44 ProAir HFA Yes Devin 2 to 3 Me moria 2-18 Lock puffs as l 05:26: needed Claus 44 Metoprolol 0 Yes Devin 1 tablet [facility]oria Tartrate 2-18 Lock with food l 05:26: Claus 44 Diazepam Yes Devin 1 tablet Me moria 2-18 Lock as needed l 05:26: Claus 44 Dymista Yes Devin 1 puff in Me moria 2-18 Lock each l 05:26: nostril Claus 44 Tramadol 2017- Yes Devin as Memori a HCl 2-18 Lock directed l 05:26: Claus 44 Furosemide 2017-0 Yes Devin 1 tablet Memoria 2-18 Lock l 05:26: Claus 44 Trazodone 20170 Yes Devin 1 tablet M emoria HCl 2-18 Lock at bedtime l 05:26: as needed Claus 44 Sertraline Yes Devin 2 tablet Memoria HCl 2-18 Lock am l 05:26: Claus 44 Benzonatate Yes Devin 1 capsule Memoria 2-18 Lock as needed l 05:26: Claus 44 Losartan 2017-0 Yes Devin 1 tablet Me moria Potassium 2-18 Lock l 05:26: Claus 44 Deplin 0 Yes Devin as Memoria 2-18 Lock directed l 05:26: Claus 44 Atorvastati Yes Devin 1 tablet Memoria n Calcium 2-18 Lock l 05:26: Claus 44 HydrOXYzine Yes Devin 1 tablet Memoria HCl 2-18 Lock as needed l 05:26: Claus 44 Aspir-81 Yes Devin 1 tablet Me moria 2-18 Lock l 05:26: Claus 44 Warfarin 0 Yes Devin 1 tablet Me moria Sodium 2-18 Lock l 05:26: Claus 44 ProAir HFA Yes Devin 2 to 3 Me moria 2-18 Lock puffs as l 05:26: needed Claus 44 Metoprolol Yes Devin 1 tablet [facility] Tartrate 2-18 Lock with food l 05:26: Claus 44 Diazepam Yes Devin 1 tablet Me moria 2-18 Lock as needed l 05:26: Claus 44 Dymista 20170 Yes Devin 1 puff in Me moria 2-18 Lock each l 05:26: nostril Claus 44 Tramadol Yes Devin as Memori a HCl 2-18 Lock directed l 05:26: Claus 44 Furosemide 0 Yes Devin 1 tablet Memoria 2-18 Lock l 05:26: Claus 44 Trazodone Yes Devin 1 tablet M emoria HCl 2-18 Lock at bedtime l 05:26: as needed Claus 44 Sertraline 0 Yes Devin 2 tablet Memoria HCl 2-18 Lock am l 05:26: Claus 44 Benzonatate 2017- Yes Devin 1 capsule Memoria 2-18 Lock as needed l 05:26: Claus 44 Losartan Yes Devin 1 tablet Me moria Potassium 2-18 Lock l 05:26: Claus 44 Deplin 2017 Yes Devin as Memoria 2-18 Lock directed l 05:26: Claus 44 Atorvastati 2017 Yes Devin 1 tablet Memoria n Calcium 2-18 Lock l 05:26: Claus 44 HydrOXYzine Yes Devin 1 tablet Memoria HCl 2-18 Lock as needed l 05:26: Claus 44 Aspir-81 Yes Devin 1 tablet Me moria 2-18 Lock l 05:26: Claus 44 Warfarin Yes Devin 1 tablet Me moria Sodium 2-18 Lock l 05:26: Claus 44 ProAir HFA Yes Devin 2 to 3 Me moria 2-18 Lock puffs as l 05:26: needed Claus 44 Metoprolol Yes Devin 1 tablet [facility]oria Tartrate 2-18 Lock with food l 05:26: Claus 44 Diazepam Yes Devin 1 tablet Me moria 2-18 Lock as needed l 05:26: Claus 44 Dymista Yes Devin 1 puff in Me moria 2-18 Lock each l 05:26: nostril Claus 44 Tramadol Yes Devin as Memori a HCl 2-18 Lock directed l 05:26: Claus 44 Furosemide Yes Devin 1 tablet Memoria 2-18 Lock l 05:26: Claus 44 Trazodone Yes Devin 1 tablet M emoria HCl 2-18 Lock at bedtime l 05:26: as needed Claus 44 Sertraline Yes Devin 2 tablet Memoria HCl 2-18 Lock am l 05:26: Claus 44 Benzonatate Yes Devin 1 capsule Memoria 2-18 Lock as needed l 05:26: Claus 44 Losartan 0 Yes Devin 1 tablet Me moria Potassium 2-18 Lock l 05:26: Claus 44 Deplin Yes Devin as Memoria 2-18 Lock directed l 05:26: Claus 44 Atorvastati Yes Devin 1 tablet Memoria n Calcium 2-18 Lock l 05:26: Claus 44 Metoprolol 2017-0 Yes Devin 1 tablet [facility]oria Tartrate 2-18 Lock with food l 05:26: Claus 44 Sertraline 20170 Yes Devin 2 tablet Memoria HCl 2-18 Lock am l 05:26: Claus 44 ProAir HFA 20170 Yes Devin 2 to 3 Me moria 2-18 Lock puffs as l 05:26: needed Claus 44 Benzonatate Yes Devin 1 capsule Memoria 2-18 Lock as needed l 05:26: Claus 44 Dymista Yes Devin 1 puff in Me moria 2-18 Lock each l 05:26: nostril Claus 44 Diazepam Yes Devin 1 tablet Me moria 2-18 Lock as needed l 05:26: Claus 44 Deplin 0 Yes Devin as Memoria 2-18 Lock directed l 05:26: Claus 44 Losartan 0 Yes Devin 1 tablet Me moria Potassium 2-18 Lock l 05:26: Claus 44 HydrOXYzine Yes Devin 1 tablet Memoria HCl 2-18 Lock as needed l 05:26: Claus 44 Trazodone Yes Devin 1 tablet M emoria HCl 2-18 Lock at bedtime l 05:26: as needed Claus 44 Tramadol Yes Devin as Memori a HCl 2-18 Lock directed l 05:26: Claus 44 Aspir-81 Yes Devin 1 tablet Me moria 2-18 Lock l 05:26: Claus 44 Warfarin 0 Yes Devin 1 tablet Me moria Sodium 2-18 Lock l 05:26: Claus 44 Furosemide 0 Yes Devin 1 tablet Memoria 2-18 Lock l 05:26: Claus 44 Atorvastati 0 Yes Devin 1 tablet Memoria n Calcium 2-18 Lock l 05:26: Claus 44 Metoprolol 0 Yes Devin 1 tablet [facility]oria Tartrate 2-18 Lock with food l 05:26: Claus 44 Sertraline 0 Yes Devin 2 tablet Memoria HCl 2-18 Lock am l 05:26: Claus 44 ProAir HFA Yes Devin 2 to 3 Me moria 2-18 Lock puffs as l 05:26: needed Claus 44 Benzonatate 2017-0 Yes Devin 1 capsule Memoria 2-18 Lock as needed l 05:26: Moose 44 Zithromax Yes Devin 2 tablets Memoria Z-[place]opold[place] 2-09 Lock on the l 00:00: first day, Moose 00 then 1 tablet daily for 4 days Fexofenadin 2017 Yes Devin 1 tablet Memoria e HCl 2-09 Lock as needed l 00:00: Promethazin 2017 Yes Devin 2 tsps M emoria e-DM 2-09 Lock l 00:00: Claus 00 Zithromax 2017 Yes Devin 2 tablets Memoria Z-[place] 2-09 Lock on the l 00:00: first day, Claus 00 then 1 tablet daily for 4 days Fexofenadin Yes Devin 1 tablet Memoria e HCl 2-09 Lock as needed l 00:00: Promethazin 2017 Yes Devin 2 tsps M emoria e-DM 2-09 Lock l 00:00: Zithromax 2017 Yes Devin 2 tablets Memoria Z-[place] 2-09 Lock on the l 00:00: first day, Moose 00 then 1 tablet daily for 4 days Fexofenadin Yes Devin 1 tablet Memoria e HCl 2-09 Lock as needed l 00:00: Promethazin Yes Devin 2 tsps M emoria e-DM 2-09 Lock l 00:00: Zithromax Yes Devin 2 tablets Memoria Z-[place] 2-09 Lock on the l 00:00: first day, Moose 00 then 1 tablet daily for 4 days Fexofenadin Yes Devin 1 tablet Memoria e HCl 2-09 Lock as needed l 00:00: Promethazin 20170 Yes Devin 2 tsps M emoria e-DM 2-09 Lock l 00:00: Moose 00 Zithromax 20170 Yes Devin 2 tablets Memoria Z-[place] 2-09 Lock on the l 00:00: first day, [place] 00 then 1 tablet daily for 4 days Zithromax Yes Devin 2 tablets Memoria Z-[place] 2-09 Lock on the l 00:00: first day, Claus 00 then 1 tablet daily for 4 days Fexofenadin 2017 Yes Devin 1 tablet Memoria e HCl 2-09 Lock as needed l 00:00: Promethazin 2017 Yes Devin 2 tsps M emoria e-DM 2-09 Lock l 00:00: Fexofenadin 2017 Yes Devin 1 tablet Memoria e HCl 2-09 Lock as needed l 00:00: Promethazin 2017 Yes Devin 2 tsps M emoria e-DM 2-09 Lock l 00:00: Zithromax 2017 Yes Devin 2 tablets Memoria Z-[place] 2-09 Lock on the l 00:00: first day, then 1 tablet daily for 4 days Fexofenadin Yes Devin 1 tablet Memoria e HCl 2-09 Lock as needed l 00:00: Promethazin Yes Devin 2 tsps M emoria e-DM 2-09 Lock l 00:00: Zithromax Yes Devin 2 tablets Memoria Z-[place] 2-09 Lock on the l 00:00: first day, then 1 tablet daily for 4 days Fexofenadin Yes Devin 1 tablet Memoria e HCl 2-09 Lock as needed l 00:00: Promethazin Yes Devin 2 tsps M emoria e-DM 2-09 Lock l 00:00: Zithromax Yes Devin 2 tablets Memoria Z-[place] 2-09 Lock on the l 00:00: first day, Claus 00 then 1 tablet daily for 4 days Fexofenadin Yes Devin 1 tablet Memoria e HCl 2-09 Lock as needed l 00:00: Promethazin Yes Devin 2 tsps M emoria e-DM 2-09 Lock l 00:00: Zithromax Yes Devin 2 tablets Memoria Z-[place] 2-09 Lock on the l 00:00: first day, Claus 00 then 1 tablet daily for 4 days Fexofenadin Yes Devin 1 tablet Memoria e HCl 2-09 Lock as needed l 00:00: Promethazin Yes Devin 2 tsps M emoria e-DM 2-09 Lock l 00:00: Zithromax 20170 Yes Devin 2 tablets Memoria Z-[place] 2-09 Lock on the l 00:00: first day, then 1 tablet daily for 4 days Fexofenadin Yes Devin 1 tablet Memoria e HCl 2-09 Lock as needed l 00:00: Promethazin 0 Yes Devin 2 tsps M emoria e-DM 2-09 Lock l 00:00: Zithromax 0 Yes Devin 2 tablets Memoria Z-[place] 2-09 Lock on the l 00:00: first day, then 1 tablet daily for 4 days Fexofenadin Yes Devin 1 tablet Memoria e HCl 2-09 Lock as needed l 00:00: Promethazin 0 Yes Devin 2 tsps M emoria e-DM 2-09 Lock l 00:00: Tizanidine 0 Yes Devin 1 tablet Memoria HCl 8-01 Lock as needed l 00:00: Tizanidine 0 Yes Devin 1 tablet Memoria HCl 8-01 Lock as needed l 00:00: Tizanidine 0 Yes Devin 1 tablet Memoria HCl 8-01 Lock as needed l 00:00: Tizanidine 0 Yes Devin 1 tablet Memoria HCl 8-01 Lock as needed l 00:00: Tizanidine 0 Yes Devin 1 tablet Memoria HCl 8-01 Lock as needed l 00:00: Tizanidine 0 Yes Devin 1 tablet Memoria HCl 8-01 Lock as needed l 00:00: Tizanidine 0 Yes Devin 1 tablet Memoria HCl 8-01 Lock as needed l 00:00: Tizanidine 0 Yes Devin 1 tablet Memoria HCl 8-01 Lock as needed l 00:00: Tizanidine 0 Yes Devin 1 tablet Memoria HCl 8-01 Lock as needed l 00:00: Tizanidine 0 Yes Devin 1 tablet Memoria HCl 8-01 Lock as needed l 00:00: Tizanidine 2016-0 Yes Devin 1 tablet Memoria HCl 8- Lock as needed l 00:00: 00 Tizanidine 2015-0 Yes Devin 1 tablet Memoria HCl 8- Lock as needed l 00:00: Furosemide Furosemide No 1{table QD Furosemide 20 MG 20 MG t} 20 MG Aspirin 81 Aspirin 81 No 1{table QD Aspirin 81 81 MG 81 MG t} 81 MG Losartan Losartan No 1{table QD Losartan Potassium Potassium t} Potassium 50 MG 50 MG 50 MG FLUoxetine FLUoxetine No 1{capsu QD FLUoxetine HCl 20 MG HCl 20 MG le} HCl 20 MG Metoprolol Metoprolol No Metoprolol Tartrate 50 Tartrate 50 Tartrate MG MG 50 MG diazePAM 5 diazePAM 5 No 1{table BID diazePAM 5 MG MG t_as_ne MG eded} Montelukast Montelukast No 1{table QD Montelukas Sodium 10 Sodium 10 t} t Sodium MG MG 10 MG Warfarin Warfarin No 1{table QD Warfarin Sodium 10 Sodium 10 t} Sodium 10 MG MG MG Omeprazole Omeprazole No QD Omeprazole 40 MG 40 MG 40 MG Atorvastati Atorvastati No 1{table QD Atorvastat n Calcium n Calcium t} in Calcium 10 MG 10 MG 10 MG ZyrTEC ZyrTEC No 1{table QD ZyrTEC Allergy 10 Allergy 10 t} Allergy 10 MG MG MG Benadryl Benadryl No Benadryl Furosemide Furosemide No 1{table QD Furosemide 20 MG 20 MG t} 20 MG Aspirin 81 Aspirin 81 No 1{table QD Aspirin 81 81 MG 81 MG t} 81 MG Losartan Losartan No 1{table QD Losartan Potassium Potassium t} Potassium 50 MG 50 MG 50 MG FLUoxetine FLUoxetine No 1{capsu QD FLUoxetine HCl 20 MG HCl 20 MG le} HCl 20 MG ZyrTEC ZyrTEC No 1{table QD ZyrTEC Allergy 10 Allergy 10 t} Allergy 10 MG MG MG Metoprolol Metoprolol No 1{table BID Metoprolol Tartrate 50 Tartrate 50 t_with_ Tartrate MG MG food} 50 MG Warfarin Warfarin No 1{table QD Warfarin Sodium 10 Sodium 10 t} Sodium 10 MG MG MG Losartan Losartan No 1{table QD Losartan Potassium Potassium t} Potassium 50 MG 50 MG 50 MG FLUoxetine FLUoxetine No 1{capsu QD FLUoxetine HCl 20 MG HCl 20 MG le} HCl 20 MG diazePAM 5 diazePAM 5 No 1{table BID diazePAM 5 MG MG t_as_ne MG eded} Montelukast Montelukast No 1{table QD Montelukas Sodium 10 Sodium 10 t} t Sodium MG MG 10 MG Benadryl Benadryl No Benadryl Aspirin 81 Aspirin 81 No 1{table QD Aspirin 81 81 MG 81 MG t} 81 MG Omeprazole Omeprazole No QD Omeprazole 40 MG 40 MG 40 MG Furosemide Furosemide No 1{table QD Furosemide 20 MG 20 MG t} 20 MG 7 day pill 7 day pill No 7 day pill [facility] box box box Medical alcohol alcohol No alcohol [facility] prep pads prep pads prep pads Medical amoxicillin amoxicillin No amoxicilli [facility] 500 mg 500 mg n 500 mg Medical capsule capsule capsule Take 4 Take 4 Take 4 capsules capsules capsules every day every day every day by oral by oral by oral route. route. route. amoxicillin amoxicillin No amoxicilli [facility] 875 mg 875 mg n 875 mg Medical tablet TAKE tablet TAKE tablet ONE (1) ONE (1) TAKE ONE TABLET(S) TABLET(S) (1) BY MOUTH BY MOUTH TABLET(S) TWICE A DAY TWICE A DAY BY MOUTH FOR 10 FOR 10 TWICE A DAYS. DAYS. DAY FOR 10 DAYS. amoxicillin amoxicillin No amoxicilli [facility] [id number] n 875 Medical mg-potassiu mg-potassiu mg-potassi m m um clavulanate clavulanate clavulanat 125 mg 125 mg e 125 mg tablet TAKE tablet TAKE tablet 1 TABLET BY 1 TABLET BY TAKE 1 MOUTH TWICE MOUTH TWICE TABLET BY A DAY A DAY MOUTH TWICE A DAY atorvastati atorvastati No atorvastat [facility] n 10 mg n 10 mg in 10 mg Medic al tablet TAKE tablet TAKE tablet 1 TABLET 1 TABLET TAKE 1 EVERY DAY EVERY DAY TABLET EVERY DAY atorvastati atorvastati No atorvastat [facility] n 20 mg n 20 mg in 20 mg Medic al tablet TAKE tablet TAKE tablet 1 TABLET 1 TABLET TAKE 1 EVERY DAY EVERY DAY TABLET EVERY DAY azelastine azelastine No azelastine [facility] 137 mcg 137 mcg 137 mcg Medica l (0.1 %) (0.1 %) (0.1 %) nasal spray nasal spray nasal aerosol aerosol spray aerosol benzonatate benzonatate No benzonatat [facility] 200 mg 200 mg e 200 mg Medical capsule capsule capsule Take 1 Take 1 Take 1 capsule 3 capsule 3 capsule 3 times a day times a day times a by oral by oral day by route. route. oral route. budesonide budesonide No budesonide [facility] 0.5 mg/2 mL 0.5 mg/2 mL 0.5 mg/2 Medical suspension suspension mL for for suspension nebulizatio nebulizatio for n n nebulizati on cefdinir cefdinir No cefdinir Edith via 300 mg 300 mg 300 mg Medical capsule capsule capsule Take 1 Take 1 Take 1 capsule capsule capsule every 12 every 12 every 12 hours by hours by hours by oral route. oral route. oral route. Cheratussin Cheratussin No Cheratussi [facility] AC 10 AC 10 n AC 10 Medical mg-100 mg/5 mg-100 mg/5 mg-100 mL oral mL oral mg/5 mL liquid Take liquid Take oral 5 mL every 5 mL every liquid 8 hours by 8 hours by Take 5 mL oral route. oral route. every 8 hours by oral route. diazepam 2 diazepam 2 No diazepam 2 [facility] mg tablet mg tablet mg tablet Medical diazepam 5 diazepam 5 No diazepam 5 [facility] mg tablet mg tablet mg tablet Medical TAKE 1 TAKE 1 TAKE 1 TABLET BY TABLET BY TABLET BY MOUTH TWICE MOUTH TWICE MOUTH A DAY A DAY TWICE A DAY doxycycline doxycycline No doxycyclin [facility] hyclate 100 hyclate 100 e hyclate Medical mg capsule mg capsule 100 mg Take 1 Take 1 capsule capsule capsule Take 1 twice a day twice a day capsule by oral by oral twice a route. route. day by oral route. doxycycline doxycycline No doxycyclin [facility] hyclate 50 hyclate 50 e hyclate Medical mg capsule mg capsule 50 mg capsule effervescen effervescen No effervesce [facility] t denture t denture nt denture Medical tabs - 90 tabs - 90 tabs - 90 enoxaparin enoxaparin No enoxaparin [facility] 80 mg/0.8 80 mg/0.8 80 mg/0.8 Medical mL mL mL subcutaneou subcutaneou subcutaneo s syringe s syringe us syringe INJECT INJECT INJECT SUBCUTANEOU SUBCUTANEOU SUBCUTANEO SLY TWICE A SLY TWICE A USLY TWICE DAY OR DAY OR A DAY OR DIRECTED BY DIRECTED BY MD OFFICE MD OFFICE DIRECTED BY MD OFFICE ergocalcife ergocalcife No ergocalcif [facility] (vitamin (vitamin (vitamin D2) 1,250 D2) 1,250 D2) 1,250 mcg (50,000 mcg (50,000 mcg unit) unit) (50,000 capsule capsule unit) Take 1 Take 1 capsule capsule capsule Take 1 every week every week capsule by oral by oral every week route. route. by oral route. first aid first aid No first aid [facility] kit kit kit Medical Flucelvax Flucelvax No Flucelvax [facility] [employer] [facility] (PF) 60 mcg (PF) 60 mcg (PF) 60 (15 mcg x (15 mcg x mcg (15 4)/0.5 mL 4)/0.5 mL mcg x IM syringe IM syringe 4)/0.5 mL IMMUNIZATIO IMMUNIZATIO IM syringe N GIVEN N GIVEN IMMUNIZATI ON GIVEN Flucelvax Flucelvax No Flucelvax [facility] [employer] [facility] (PF) 60 mcg (PF) 60 mcg (PF) 60 (15 mcg x (15 mcg x mcg (15 4)/0.5 mL 4)/0.5 mL mcg x IM syringe IM syringe 4)/0.5 mL IM syringe fluconazole fluconazole No fluconazol [facility] 150 mg 150 mg e 150 mg Medical tablet TAKE tablet TAKE tablet ONE (1) ONE (1) TAKE ONE TABLET(S) TABLET(S) (1) BY MOUTH BY MOUTH TABLET(S) DAILY. DAILY. BY MOUTH DAILY. fluoxetine fluoxetine No fluoxetine [facility] 20 mg 20 mg 20 mg Medical capsule capsule capsule TAKE ONE TAKE ONE TAKE ONE (1) (1) (1) CAPSULE(S) CAPSULE(S) CAPSULE(S) BY MOUTH BY MOUTH BY MOUTH EVERY DAY EVERY DAY EVERY DAY IN THE IN THE IN THE MORNING. MORNING. MORNING. fluoxetine fluoxetine No fluoxetine [facility] 40 mg 40 mg 40 mg Medical capsule capsule capsule furosemide furosemide No furosemide [facility] 20 mg 20 mg 20 mg Medical tablet Take tablet Take tablet 1 tablet 1 tablet Take 1 every day every day tablet by oral by oral every day route for route for by oral 90 days. 90 days. route for 90 days. furosemide furosemide No furosemide [facility] 40 mg 40 mg 40 mg Medical tablet TAKE tablet TAKE tablet 1 TABLET BY 1 TABLET BY TAKE 1 MOUTH EVERY MOUTH EVERY TABLET BY DAY DAY MOUTH EVERY DAY gabapentin gabapentin No gabapentin [facility] 400 mg 400 mg 400 mg Medical capsule capsule capsule TAKE ONE TAKE ONE TAKE ONE (1) (1) (1) CAPSULE(S) CAPSULE(S) CAPSULE(S) BY MOUTH BY MOUTH BY MOUTH TWICE A TWICE A TWICE A DAY. DAY. DAY. hydroxyzine hydroxyzine No hydroxyzin [facility] HCl 25 mg HCl 25 mg e HCl 25 M edical tablet TAKE tablet TAKE mg tablet ONE (1) ONE (1) TAKE ONE TABLET(S) TABLET(S) (1) BY MOUTH BY MOUTH TABLET(S) DAILY. DAILY. BY MOUTH DAILY. ID NOW ID NOW No ID NOW [facility] COVID-19 COVID-19 COVID-19 Med ical Test Kit Test Kit Test Kit USE 1 KIT USE 1 KIT USE 1 KIT TODAY TODAY TODAY DIRECTED DIRECTED DIRECTED lorazepam 1 lorazepam 1 No lorazepam [facility] mg tablet mg tablet 1 mg Medic al tablet losartan 50 losartan 50 No losartan [facility] mg tablet mg tablet 50 mg Medi [place] TAKE ONE TAKE ONE tablet (1) (1) TAKE ONE TABLET(S) TABLET(S) (1) BY MOUTH BY MOUTH TABLET(S) TWICE A TWICE A BY MOUTH DAY. DAY. TWICE A DAY. magnesium magnesium No magnesium [facility] oxide 400 oxide 400 oxide 400 Medical mg (241.3 mg (241.3 mg (241.3 mg mg mg magnesium) magnesium) magnesium) tablet Take tablet Take tablet 1 tablet 1 tablet Take 1 every day every day tablet by oral by oral every day route for route for by oral 90 days. 90 days. route for 90 days. magnesium magnesium No magnesium [facility] oxide 400mg oxide 400mg oxide Medical 400mg methylpredn methylpredn No methylpred [facility] isolone 4 isolone 4 nisolone 4 Medical mg tablets mg tablets mg tablets in a dose in a dose in a dose pack pack pack metoprolol metoprolol No metoprolol [facility] tartrate 50 tartrate 50 tartrate Medical mg tablet mg tablet 50 mg Take 1 Take 1 tablet tablet tablet Take 1 twice a day twice a day tablet by oral by oral twice a route for route for day by 90 days. 90 days. oral route for 90 days. metronidazo metronidazo No metronidaz [facility] le 0.75 % le 0.75 % ole 0.75 % Medical vaginal gel vaginal gel vaginal APPLY APPLY gel APPLY VAGINALLY VAGINALLY VAGINALLY AT BEDTIME AT BEDTIME AT BEDTIME DAILY FOR 5 DAILY FOR 5 DAILY FOR DAYS. DAYS. 5 DAYS. montelukast montelukast No montelukas [facility] 10 mg 10 mg t 10 mg Medical tablet tablet tablet moxifloxaci moxifloxaci No moxifloxac [facility] n 0.5 % eye n 0.5 % eye in 0.5 % Medical drops drops eye drops msm 1000 mg msm 1000 mg No msm 1000 [facility] mg Medical nitrofurant nitrofurant No nitrofuran [facility] oin oin toin Medical macrocrysta macrocrysta macrocryst l 100 mg l 100 mg al 100 mg capsule capsule capsule TAKE 1 TAKE 1 TAKE 1 CAPSULE BY CAPSULE BY CAPSULE BY MOUTH TWICE MOUTH TWICE MOUTH A DAY FOR 7 A DAY FOR 7 TWICE A DAYS DAYS DAY FOR 7 DAYS omeprazole omeprazole No omeprazole [facility] 40 mg 40 mg 40 mg Medical capsule,del capsule,del capsule,de ayed ayed layed release release release TAKE 1 TAKE 1 TAKE 1 CAPSULE CAPSULE CAPSULE EVERY DAY EVERY DAY EVERY DAY prednisolon prednisolon No prednisolo [facility] e acetate 1 e acetate 1 ne acetate Medical % eye % eye 1 % eye drops,suspe drops,suspe drops,susp nsion nsion ension prednisone prednisone No prednisone [facility] 10 mg 10 mg 10 mg Medical tablet TAKE tablet TAKE tablet ONE (1) ONE (1) TAKE ONE TABLET BY TABLET BY (1) TABLET MOUTH ONCE MOUTH ONCE BY MOUTH DAILY. DAILY. ONCE DAILY. prednisone prednisone No prednisone [facility] 20 mg 20 mg 20 mg Medical tablet TAKE tablet TAKE tablet TWO (2) TWO (2) TAKE TWO TABLET(S) TABLET(S) (2) BY MOUTH BY MOUTH TABLET(S) DAILY FOR 5 DAILY FOR 5 BY MOUTH DAYS. DAYS. DAILY FOR 5 DAYS. ProAir ProAir No ProAir [facility] RespiClick RespiClick RespiClick Medical 90 90 90 mcg/actuati mcg/actuati mcg/actuat on breath on breath ion breath activated activated activated INHALE TWO INHALE TWO INHALE TWO (2) PUFF(S) (2) PUFF(S) (2) BY MOUTH BY MOUTH PUFF(S) BY EVERY 4 EVERY 4 MOUTH HOURS. HOURS. EVERY 4 HOURS. quad cane quad cane No quad cane [facility] Tamiflu 75 Tamiflu 75 No Tamiflu 75 [facility] mg capsule mg capsule mg capsule Medical Take 1 Take 1 Take 1 capsule capsule capsule twice a day twice a day twice a by oral by oral day by route. route. oral route. tetanus-dip tetanus-dip No tetanus-di [facility] htheria htheria phtheria Medic al toxoids-Td toxoids-Td toxoids-Td 2 Lf unit-2 2 Lf unit-2 2 Lf Lf unit/0.5 Lf unit/0.5 unit-2 Lf mL IM mL IM unit/0.5 suspension suspension mL IM IMMUNIZATIO IMMUNIZATIO suspension N GIVEN N GIVEN IMMUNIZATI ON GIVEN tobramycin tobramycin No tobramycin [facility] 0.3 % eye 0.3 % eye 0.3 % eye Medical drops drops drops toothpaste toothpaste No toothpaste [facility] - 2 pack - 2 pack - 2 pack Med ical tramadol 50 tramadol 50 No tramadol [facility] mg tablet mg tablet 50 mg [facility] [place] TAKE ONE TAKE ONE tablet (1) TABLET (1) TABLET TAKE ONE BY MOUTH BY MOUTH (1) TABLET EVERY SIX EVERY SIX BY MOUTH HOURS HOURS EVERY SIX NEEDED FOR NEEDED FOR HOURS MODERATE MODERATE NEEDED FOR PAIN. PAIN. MODERATE PAIN. vitamin vitamin No vitamin [facility] b-12 5000mg b-12 5000mg b-12 M edical sublingual sublingual 5000mg sublingual vitamin d vitamin d No vitamin d [facility] 5000 iu 5000 iu 5000 iu Medica l warfarin 10 warfarin 10 No 2.5 Q1D warfarin [facility] mg tablet mg tablet 10 mg [facility] [place] Take 2.5 Take 2.5 tablet tablets tablets Take 2.5 every day every day tablets by oral by oral every day route for route for by oral 90 days. 90 days. route for 90 days. warfarin warfarin No warfarin [facility] via 2.5 mg 2.5 mg 2.5 mg Medical tablet Take tablet Take tablet 2.5 tablets 2.5 tablets Take 2.5 every day every day tablets by oral by oral every day route for route for by oral 90 days. 90 days. route for 90 days. warfarin 5 warfarin 5 No warfarin 5 [facility] mg tablet mg tablet mg tablet Medical TAKE UP TO TAKE UP TO TAKE UP TO 2 TABLETS 2 TABLETS 2 TABLETS BY MOUTH BY MOUTH BY MOUTH DAILY DAILY DAILY DIRECTED BY DIRECTED BY DIRECTED CLINIC CLINIC BY CLINIC 7 day pill 7 day pill No 7 day pill [facility] box box box Medical alcohol alcohol No alcohol [facility] prep pads prep pads prep pads Medical amoxicillin amoxicillin No amoxicilli [facility] 500 mg 500 mg n 500 mg Medical capsule capsule capsule Take 4 Take 4 Take 4 capsules capsules capsules every day every day every day by oral by oral by oral route. route. route. amoxicillin amoxicillin No amoxicilli [facility] 875 mg 875 mg n 875 mg Medical tablet TAKE tablet TAKE tablet ONE (1) ONE (1) TAKE ONE TABLET(S) TABLET(S) (1) BY MOUTH BY MOUTH TABLET(S) TWICE A DAY TWICE A DAY BY MOUTH FOR 10 FOR 10 TWICE A DAYS. DAYS. DAY FOR 10 DAYS. amoxicillin amoxicillin No amoxicilli [facility] [phone] n 875 Medical mg-potassiu mg-potassiu mg-potassi m m um clavulanate clavulanate clavulanat 125 mg 125 mg e 125 mg tablet TAKE tablet TAKE tablet 1 TABLET BY 1 TABLET BY TAKE 1 MOUTH TWICE MOUTH TWICE TABLET BY A DAY A DAY MOUTH TWICE A DAY atorvastati atorvastati No atorvastat [facility] n 10 mg n 10 mg in 10 mg Medic al tablet TAKE tablet TAKE tablet 1 TABLET 1 TABLET TAKE 1 EVERY DAY EVERY DAY TABLET EVERY DAY atorvastati atorvastati No atorvastat [facility] n 20 mg n 20 mg in 20 mg Medic al tablet TAKE tablet TAKE tablet 1 TABLET 1 TABLET TAKE 1 EVERY DAY EVERY DAY TABLET EVERY DAY azelastine azelastine No azelastine [facility] 137 mcg 137 mcg 137 mcg Medica l (0.1 %) (0.1 %) (0.1 %) nasal spray nasal spray nasal aerosol aerosol spray aerosol benzonatate benzonatate No benzonatat [facility] 200 mg 200 mg e 200 mg Medical capsule capsule capsule Take 1 Take 1 Take 1 capsule 3 capsule 3 capsule 3 times a day times a day times a by oral by oral day by route. route. oral route. budesonide budesonide No budesonide [facility] 0.5 mg/2 mL 0.5 mg/2 mL 0.5 mg/2 Medical suspension suspension mL for for suspension nebulizatio nebulizatio for n n nebulizati on cefdinir cefdinir No cefdinir [facility] via 300 mg 300 mg 300 mg Medical capsule capsule capsule Take 1 Take 1 Take 1 capsule capsule capsule every 12 every 12 every 12 hours by hours by hours by oral route. oral route. oral route. Cheratussin Cheratussin No Cheratussi [facility] AC 10 AC 10 n AC 10 Medical mg-100 mg/5 mg-100 mg/5 mg-100 mL oral mL oral mg/5 mL liquid Take liquid Take oral 5 mL every 5 mL every liquid 8 hours by 8 hours by Take 5 mL oral route. oral route. every 8 hours by oral route. diazepam 2 diazepam 2 No diazepam 2 [facility] mg tablet mg tablet mg tablet Medical diazepam 5 diazepam 5 No diazepam 5 [facility] mg tablet mg tablet mg tablet Medical TAKE 1 TAKE 1 TAKE 1 TABLET BY TABLET BY TABLET BY MOUTH TWICE MOUTH TWICE MOUTH A DAY A DAY TWICE A DAY doxycycline doxycycline No doxycyclin [facility] hyclate 100 hyclate 100 e hyclate Medical mg capsule mg capsule 100 mg Take 1 Take 1 capsule capsule capsule Take 1 twice a day twice a day capsule by oral by oral twice a route. route. day by oral route. doxycycline doxycycline No doxycyclin [facility] hyclate 50 hyclate 50 e hyclate Medical mg capsule mg capsule 50 mg capsule effervescen effervescen No effervesce [facility] t denture t denture nt denture Medical tabs - 90 tabs - 90 tabs - 90 enoxaparin enoxaparin No enoxaparin [facility] 80 mg/0.8 80 mg/0.8 80 mg/0.8 Medical mL mL mL subcutaneou subcutaneou subcutaneo s syringe s syringe us syringe INJECT INJECT INJECT SUBCUTANEOU SUBCUTANEOU SUBCUTANEO SLY TWICE A SLY TWICE A USLY TWICE DAY OR DAY OR A DAY OR DIRECTED BY DIRECTED BY MD OFFICE MD OFFICE DIRECTED BY MD OFFICE ergocalcife ergocalcife No ergocalcif [facility] (vitamin (vitamin (vitamin D2) 1,250 D2) 1,250 D2) 1,250 mcg (50,000 mcg (50,000 mcg unit) unit) (50,000 capsule capsule unit) Take 1 Take 1 capsule capsule capsule Take 1 every week every week capsule by oral by oral every week route. route. by oral route. first aid first aid No first aid [facility] kit kit kit Medical Flucelvax Flucelvax No Flucelvax [facility] Quad [employer] [facility] 2016-2017 (PF) 60 mcg (PF) 60 mcg (PF) 60 (15 mcg x (15 mcg x mcg (15 4)/0.5 mL 4)/0.5 mL mcg x IM syringe IM syringe 4)/0.5 mL IMMUNIZATIO IMMUNIZATIO IM syringe N GIVEN N GIVEN IMMUNIZATI ON GIVEN Flucelvax Flucelvax No Flucelvax [facility] Quad [employer] [facility] (PF) 60 mcg (PF) 60 mcg (PF) 60 (15 mcg x (15 mcg x mcg (15 4)/0.5 mL 4)/0.5 mL mcg x IM syringe IM syringe 4)/0.5 mL IM syringe fluconazole fluconazole No fluconazol [facility] 150 mg 150 mg e 150 mg Medical tablet TAKE tablet TAKE tablet ONE (1) ONE (1) TAKE ONE TABLET(S) TABLET(S) (1) BY MOUTH BY MOUTH TABLET(S) DAILY. DAILY. BY MOUTH DAILY. fluoxetine fluoxetine No fluoxetine [facility] 20 mg 20 mg 20 mg Medical capsule capsule capsule TAKE ONE TAKE ONE TAKE ONE (1) (1) (1) CAPSULE(S) CAPSULE(S) CAPSULE(S) BY MOUTH BY MOUTH BY MOUTH EVERY DAY EVERY DAY EVERY DAY IN THE IN THE IN THE MORNING. MORNING. MORNING. fluoxetine fluoxetine No fluoxetine [facility] 40 mg 40 mg 40 mg Medical capsule capsule capsule furosemide furosemide No furosemide [facility] 20 mg 20 mg 20 mg Medical tablet Take tablet Take tablet 1 tablet 1 tablet Take 1 every day every day tablet by oral by oral every day route for route for by oral 90 days. 90 days. route for 90 days. furosemide furosemide No furosemide [facility] 40 mg 40 mg 40 mg Medical tablet TAKE tablet TAKE tablet 1 TABLET BY 1 TABLET BY TAKE 1 MOUTH EVERY MOUTH EVERY TABLET BY DAY DAY MOUTH EVERY DAY gabapentin gabapentin No gabapentin [facility] 400 mg 400 mg 400 mg Medical capsule capsule capsule TAKE ONE TAKE ONE TAKE ONE (1) (1) (1) CAPSULE(S) CAPSULE(S) CAPSULE(S) BY MOUTH BY MOUTH BY MOUTH TWICE A TWICE A TWICE A DAY. DAY. DAY. hydroxyzine hydroxyzine No hydroxyzin [facility] HCl 25 mg HCl 25 mg e HCl 25 M edical tablet TAKE tablet TAKE mg tablet ONE (1) ONE (1) TAKE ONE TABLET(S) TABLET(S) (1) BY MOUTH BY MOUTH TABLET(S) DAILY. DAILY. BY MOUTH DAILY. ID NOW ID NOW No ID NOW [facility] COVID-19 COVID-19 COVID-19 Med ical Test Kit Test Kit Test Kit USE 1 KIT USE 1 KIT USE 1 KIT TODAY TODAY TODAY DIRECTED DIRECTED DIRECTED lorazepam 1 lorazepam 1 No lorazepam [facility] mg tablet mg tablet 1 mg Medic al tablet losartan 50 losartan 50 No losartan [facility] mg tablet mg tablet 50 mg [facility] [place] TAKE ONE TAKE ONE tablet (1) (1) TAKE ONE TABLET(S) TABLET(S) (1) BY MOUTH BY MOUTH TABLET(S) TWICE A TWICE A BY MOUTH DAY. DAY. TWICE A DAY. magnesium magnesium No magnesium [facility] oxide 400 oxide 400 oxide 400 Medical mg (241.3 mg (241.3 mg (241.3 mg mg mg magnesium) magnesium) magnesium) tablet Take tablet Take tablet 1 tablet 1 tablet Take 1 every day every day tablet by oral by oral every day route for route for by oral 90 days. 90 days. route for 90 days. magnesium magnesium No magnesium [facility] oxide 400mg oxide 400mg oxide Medical 400mg methylpredn methylpredn No methylpred [facility] isolone 4 isolone 4 nisolone 4 Medical mg tablets mg tablets mg tablets in a dose in a dose in a dose pack pack pack metoprolol metoprolol No metoprolol [facility] tartrate 50 tartrate 50 tartrate Medical mg tablet mg tablet 50 mg Take 1 Take 1 tablet tablet tablet Take 1 twice a day twice a day tablet by oral by oral twice a route for route for day by 90 days. 90 days. oral route for 90 days. metronidazo metronidazo No metronidaz [facility] le 0.75 % le 0.75 % ole 0.75 % Medical vaginal gel vaginal gel vaginal APPLY APPLY gel APPLY VAGINALLY VAGINALLY VAGINALLY AT BEDTIME AT BEDTIME AT BEDTIME DAILY FOR 5 DAILY FOR 5 DAILY FOR DAYS. DAYS. 5 DAYS. montelukast montelukast No montelukas [facility] 10 mg 10 mg t 10 mg Medical tablet tablet tablet moxifloxaci moxifloxaci No moxifloxac [facility] n 0.5 % eye n 0.5 % eye in 0.5 % Medical drops drops eye drops msm 1000 mg msm 1000 mg No msm 1000 [facility] mg Medical nitrofurant nitrofurant No nitrofuran [facility] oin oin toin Medical macrocrysta macrocrysta macrocryst l 100 mg l 100 mg al 100 mg capsule capsule capsule TAKE 1 TAKE 1 TAKE 1 CAPSULE BY CAPSULE BY CAPSULE BY MOUTH TWICE MOUTH TWICE MOUTH A DAY FOR 7 A DAY FOR 7 TWICE A DAYS DAYS DAY FOR 7 DAYS omeprazole omeprazole No omeprazole [facility] 40 mg 40 mg 40 mg Medical capsule,del capsule,del capsule,de ayed ayed layed release release release TAKE 1 TAKE 1 TAKE 1 CAPSULE CAPSULE CAPSULE EVERY DAY EVERY DAY EVERY DAY prednisolon prednisolon No prednisolo [facility] e acetate 1 e acetate 1 ne acetate Medical % eye % eye 1 % eye drops,suspe drops,suspe drops,susp nsion nsion ension prednisone prednisone No prednisone [facility] 10 mg 10 mg 10 mg Medical tablet TAKE tablet TAKE tablet ONE (1) ONE (1) TAKE ONE TABLET BY TABLET BY (1) TABLET MOUTH ONCE MOUTH ONCE BY MOUTH DAILY. DAILY. ONCE DAILY. prednisone prednisone No prednisone [facility] 20 mg 20 mg 20 mg Medical tablet TAKE tablet TAKE tablet TWO (2) TWO (2) TAKE TWO TABLET(S) TABLET(S) (2) BY MOUTH BY MOUTH TABLET(S) DAILY FOR 5 DAILY FOR 5 BY MOUTH DAYS. DAYS. DAILY FOR 5 DAYS. ProAir ProAir No ProAir [facility] RespiClick [facility] Medical 90 90 90 mcg/actuati mcg/actuati mcg/actuat on breath on breath ion breath activated activated activated INHALE TWO INHALE TWO INHALE TWO (2) PUFF(S) (2) PUFF(S) (2) BY MOUTH BY MOUTH PUFF(S) BY EVERY 4 EVERY 4 MOUTH HOURS. HOURS. EVERY 4 HOURS. quad cane quad cane No quad cane [facility] Medical Tamiflu 75 Tamiflu 75 No Tamiflu 75 [facility] mg capsule mg capsule mg capsule Medical Take 1 Take 1 Take 1 capsule capsule capsule twice a day twice a day twice a by oral by oral day by route. route. oral route. tetanus-dip tetanus-dip No tetanus-di [facility] htheria htheria phtheria Medic al toxoids-Td toxoids-Td toxoids-Td 2 Lf unit-2 2 Lf unit-2 2 Lf Lf unit/0.5 Lf unit/0.5 unit-2 Lf mL IM mL IM unit/0.5 suspension suspension mL IM IMMUNIZATIO IMMUNIZATIO suspension N GIVEN N GIVEN IMMUNIZATI ON GIVEN tobramycin tobramycin No tobramycin [facility] 0.3 % eye 0.3 % eye 0.3 % eye Medical drops drops drops toothpaste toothpaste No toothpaste [facility] - 2 pack - 2 pack - 2 pack Med ical tramadol 50 tramadol 50 No tramadol [facility] mg tablet mg tablet 50 mg [facility] [place] TAKE ONE TAKE ONE tablet (1) TABLET (1) TABLET TAKE ONE BY MOUTH BY MOUTH (1) TABLET EVERY SIX EVERY SIX BY MOUTH HOURS HOURS EVERY SIX NEEDED FOR NEEDED FOR HOURS MODERATE MODERATE NEEDED FOR PAIN. PAIN. MODERATE PAIN. vitamin vitamin No vitamin [facility] b-12 5000mg b-12 5000mg b-12 M edical sublingual sublingual 5000mg sublingual vitamin d vitamin d No vitamin d [facility] 5000 iu 5000 iu 5000 iu Medica l warfarin 10 warfarin 10 No 2.5 Q1D warfarin [facility] mg tablet mg tablet 10 mg [facility] [place] Take 2.5 Take 2.5 tablet tablets tablets Take 2.5 every day every day tablets by oral by oral every day route for route for by oral 90 days. 90 days. route for 90 days. warfarin warfarin No warfarin [facility] via 2.5 mg 2.5 mg 2.5 mg Medical tablet Take tablet Take tablet 2.5 tablets 2.5 tablets Take 2.5 every day every day tablets by oral by oral every day route for route for by oral 90 days. 90 days. route for 90 days. warfarin 5 warfarin 5 No warfarin 5 [facility] mg tablet mg tablet mg tablet Medical TAKE UP TO TAKE UP TO TAKE UP TO 2 TABLETS 2 TABLETS 2 TABLETS BY MOUTH BY MOUTH BY MOUTH DAILY DAILY DAILY DIRECTED BY DIRECTED BY DIRECTED CLINIC CLINIC BY CLINIC Aspirin 81 Aspirin 81 No 1{table QD Aspirin 81 81 MG 81 MG t} 81 MG Furosemide Furosemide No 1{table QD Furosemide 20 MG 20 MG t} 20 MG Omeprazole Omeprazole No QD Omeprazole 40 MG 40 MG 40 MG diazePAM 5 diazePAM 5 No 1{table BID diazePAM 5 MG MG t_as_ne MG eded} Doxycycline Doxycycline No 1{capsu QD Doxycyclin Hyclate 100 Hyclate 100 le} e Hyclate MG MG 100 MG Benadryl Benadryl No Benadryl Warfarin Warfarin No 1{table QD Warfarin Sodium 10 Sodium 10 t} Sodium 10 MG MG MG Metoprolol Metoprolol No 1{table BID Metoprolol Tartrate 50 Tartrate 50 t_with_ Tartrate MG MG food} 50 MG Montelukast Montelukast No 1{table QD Montelukas Sodium 10 Sodium 10 t} t Sodium MG MG 10 MG Losartan Losartan No 1{table QD Losartan Potassium Potassium t} Potassium 50 MG 50 MG 50 MG ZyrTEC ZyrTEC No 1{table QD ZyrTEC Allergy 10 Allergy 10 t} Allergy 10 MG MG MG FLUoxetine FLUoxetine No 1{capsu QD FLUoxetine HCl 20 MG HCl 20 MG le} HCl 20 MG Losartan Losartan No Losartan Potassium Potassium Potassium 50 MG 50 MG 50 MG diazePAM 5 diazePAM 5 No 1{table BID diazePAM 5 MG MG t_as_ne MG eded} FLUoxetine FLUoxetine No 1{capsu QD FLUoxetine HCl 20 MG HCl 20 MG le} HCl 20 MG Omeprazole Omeprazole No QD Omeprazole 40 MG 40 MG 40 MG Montelukast Montelukast No 1{table QD Montelukas Sodium 10 Sodium 10 t} t Sodium MG MG 10 MG Omeprazole Omeprazole No Omeprazole 40 MG 40 MG 40 MG Metoprolol Metoprolol No 1{table BID Metoprolol Tartrate 50 Tartrate 50 t_with_ Tartrate MG MG food} 50 MG ZyrTEC ZyrTEC No 1{table QD ZyrTEC Allergy 10 Allergy 10 t} Allergy 10 MG MG MG Doxycycline Doxycycline No 1{capsu QD Doxycyclin Hyclate 100 Hyclate 100 le} e Hyclate MG MG 100 MG Aspirin 81 Aspirin 81 No 1{table QD Aspirin 81 81 MG 81 MG t} 81 MG Losartan Losartan No 1{table QD Losartan Potassium Potassium t} Potassium 50 MG 50 MG 50 MG Furosemide Furosemide No 1{table QD Furosemide 20 MG 20 MG t} 20 MG Benadryl Benadryl No Benadryl Warfarin Warfarin No 1{table QD Warfarin Sodium 10 Sodium 10 t} Sodium 10 MG MG MG Omeprazole Omeprazole No QD Omeprazole 40 MG 40 MG 40 MG Losartan Losartan No Losartan Potassium Potassium Potassium 50 MG 50 MG 50 MG Atorvastati Atorvastati No 1{table QD Atorvastat n Calcium n Calcium t} in Calcium 20 MG 20 MG 20 MG Omeprazole Omeprazole No QD Omeprazole 40 MG 40 MG 40 MG Montelukast Montelukast No 1{table QD Montelukas Sodium 10 Sodium 10 t} t Sodium MG MG 10 MG Benadryl Benadryl No Benadryl ZyrTEC ZyrTEC No 1{table QD ZyrTEC Allergy 10 Allergy 10 t} Allergy 10 MG MG MG Aspirin 81 Aspirin 81 No 1{table QD Aspirin 81 81 MG 81 MG t} 81 MG diazePAM 5 diazePAM 5 No 1{table BID diazePAM 5 MG MG t_as_ne MG eded} Warfarin Warfarin No 1{table QD Warfarin Sodium 10 Sodium 10 t} Sodium 10 MG MG MG Losartan Losartan No 1{table QD Losartan Potassium Potassium t} Potassium 50 MG 50 MG 50 MG FLUoxetine FLUoxetine No 1{capsu QD FLUoxetine HCl 20 MG HCl 20 MG le} HCl 20 MG Doxycycline Doxycycline No 1{capsu QD Doxycyclin Hyclate 100 Hyclate 100 le} e Hyclate MG MG 100 MG Metoprolol Metoprolol No 1{table BID Metoprolol Tartrate 50 Tartrate 50 t_with_ Tartrate MG MG food} 50 MG Furosemide Furosemide No 1{table QD Furosemide 20 MG 20 MG t} 20 MG Omeprazole Omeprazole No QD Omeprazole 40 MG 40 MG 40 MG Losartan Losartan No Losartan Potassium Potassium Potassium 50 MG 50 MG 50 MG Atorvastati Atorvastati No 1{table QD Atorvastat n Calcium n Calcium t} in Calcium 20 MG 20 MG 20 MG Omeprazole Omeprazole No QD Omeprazole 40 MG 40 MG 40 MG Montelukast Montelukast No 1{table QD Montelukas Sodium 10 Sodium 10 t} t Sodium MG MG 10 MG Benadryl Benadryl No Benadryl ZyrTEC ZyrTEC No 1{table QD ZyrTEC Allergy 10 Allergy 10 t} Allergy 10 MG MG MG Aspirin 81 Aspirin 81 No 1{table QD Aspirin 81 81 MG 81 MG t} 81 MG diazePAM 5 diazePAM 5 No 1{table BID diazePAM 5 MG MG t_as_ne MG eded} Warfarin Warfarin No 1{table QD Warfarin Sodium 10 Sodium 10 t} Sodium 10 MG MG MG Losartan Losartan No 1{table QD Losartan Potassium Potassium t} Potassium 50 MG 50 MG 50 MG FLUoxetine FLUoxetine No 1{capsu QD FLUoxetine HCl 20 MG HCl 20 MG le} HCl 20 MG Doxycycline Doxycycline No 1{capsu QD Doxycyclin Hyclate 100 Hyclate 100 le} e Hyclate MG MG 100 MG Metoprolol Metoprolol No 1{table BID Metoprolol Tartrate 50 Tartrate 50 t_with_ Tartrate MG MG food} 50 MG Furosemide Furosemide No 1{table QD Furosemide 20 MG 20 MG t} 20 MG Metoprolol Metoprolol No Metoprolol Tartrate 50 Tartrate 50 Tartrate MG MG 50 MG diazePAM 5 diazePAM 5 No 1{table BID diazePAM 5 MG MG t_as_ne MG eded} Montelukast Montelukast No 1{table QD Montelukas Sodium 10 Sodium 10 t} t Sodium MG MG 10 MG Warfarin Warfarin No 1{table QD Warfarin Sodium 10 Sodium 10 t} Sodium 10 MG MG MG Omeprazole Omeprazole No QD Omeprazole 40 MG 40 MG 40 MG Atorvastati Atorvastati No 1{table QD Atorvastat n Calcium n Calcium t} in Calcium 10 MG 10 MG 10 MG ZyrTEC ZyrTEC No 1{table QD ZyrTEC Allergy 10 Allergy 10 t} Allergy 10 MG MG MG Benadryl Benadryl No Benadryl Furosemide Furosemide No 1{table QD Furosemide 20 MG 20 MG t} 20 MG Aspirin 81 Aspirin 81 No 1{table QD Aspirin 81 81 MG 81 MG t} 81 MG Losartan Losartan No 1{table QD Losartan Potassium Potassium t} Potassium 50 MG 50 MG 50 MG FLUoxetine FLUoxetine No 1{capsu QD FLUoxetine HCl 20 MG HCl 20 MG le} HCl 20 MG Metoprolol Metoprolol No Metoprolol Tartrate 50 Tartrate 50 Tartrate MG MG 50 MG diazePAM 5 diazePAM 5 No 1{table BID diazePAM 5 MG MG t_as_ne MG eded} Montelukast Montelukast No 1{table QD Montelukas Sodium 10 Sodium 10 t} t Sodium MG MG 10 MG Warfarin Warfarin No 1{table QD Warfarin Sodium 10 Sodium 10 t} Sodium 10 MG MG MG Omeprazole Omeprazole No QD Omeprazole 40 MG 40 MG 40 MG Atorvastati Atorvastati No 1{table QD Atorvastat n Calcium n Calcium t} in Calcium 10 MG 10 MG 10 MG ZyrTEC ZyrTEC No 1{table QD ZyrTEC Allergy 10 Allergy 10 t} Allergy 10 MG MG MG Benadryl Benadryl No Benadryl Furosemide Furosemide No 1{table QD Furosemide 20 MG 20 MG t} 20 MG Aspirin 81 Aspirin 81 No 1{table QD Aspirin 81 81 MG 81 MG t} 81 MG Losartan Losartan No 1{table QD Losartan Potassium Potassium t} Potassium 50 MG 50 MG 50 MG FLUoxetine FLUoxetine No 1{capsu QD FLUoxetine HCl 20 MG HCl 20 MG le} HCl 20 MG Metoprolol Metoprolol No Metoprolol Tartrate 50 Tartrate 50 Tartrate MG MG 50 MG diazePAM 5 diazePAM 5 No 1{table BID diazePAM 5 MG MG t_as_ne MG eded} Montelukast Montelukast No 1{table QD Montelukas Sodium 10 Sodium 10 t} t Sodium MG MG 10 MG Warfarin Warfarin No 1{table QD Warfarin Sodium 10 Sodium 10 t} Sodium 10 MG MG MG Omeprazole Omeprazole No QD Omeprazole 40 MG 40 MG 40 MG Atorvastati Atorvastati No 1{table QD Atorvastat n Calcium n Calcium t} in Calcium 10 MG 10 MG 10 MG ZyrTEC ZyrTEC No 1{table QD ZyrTEC Allergy 10 Allergy 10 t} Allergy 10 MG MG MG Benadryl Benadryl No Benadryl Furosemide Furosemide No 1{table QD Furosemide 20 MG 20 MG t} 20 MG Aspirin 81 Aspirin 81 No 1{table QD Aspirin 81 81 MG 81 MG t} 81 MG Losartan Losartan No 1{table QD Losartan Potassium Potassium t} Potassium 50 MG 50 MG 50 MG FLUoxetine FLUoxetine No 1{capsu QD FLUoxetine HCl 20 MG HCl 20 MG le} HCl 20 MG Metoprolol Metoprolol No Metoprolol Tartrate 50 Tartrate 50 Tartrate MG MG 50 MG diazePAM 5 diazePAM 5 No 1{table BID diazePAM 5 MG MG t_as_ne MG eded} Montelukast Montelukast No 1{table QD Montelukas Sodium 10 Sodium 10 t} t Sodium MG MG 10 MG Warfarin Warfarin No 1{table QD Warfarin Sodium 10 Sodium 10 t} Sodium 10 MG MG MG Omeprazole Omeprazole No QD Omeprazole 40 MG 40 MG 40 MG Atorvastati Atorvastati No 1{table QD Atorvastat n Calcium n Calcium t} in Calcium 10 MG 10 MG 10 MG ZyrTEC ZyrTEC No 1{table QD ZyrTEC Allergy 10 Allergy 10 t} Allergy 10 MG MG MG Benadryl Benadryl No Benadryl Furosemide Furosemide No 1{table QD Furosemide 20 MG 20 MG t} 20 MG Aspirin 81 Aspirin 81 No 1{table QD Aspirin 81 81 MG 81 MG t} 81 MG Losartan Losartan No 1{table QD Losartan Potassium Potassium t} Potassium 50 MG 50 MG 50 MG FLUoxetine FLUoxetine No 1{capsu QD FLUoxetine HCl 20 MG HCl 20 MG le} HCl 20 MG Metoprolol Metoprolol No Metoprolol Tartrate 50 Tartrate 50 Tartrate MG MG 50 MG diazePAM 5 diazePAM 5 No 1{table BID diazePAM 5 MG MG t_as_ne MG eded} Montelukast Montelukast No 1{table QD Montelukas Sodium 10 Sodium 10 t} t Sodium MG MG 10 MG Warfarin Warfarin No 1{table QD Warfarin Sodium 10 Sodium 10 t} Sodium 10 MG MG MG Omeprazole Omeprazole No QD Omeprazole 40 MG 40 MG 40 MG Atorvastati Atorvastati No 1{table QD Atorvastat n Calcium n Calcium t} in Calcium 10 MG 10 MG 10 MG ZyrTEC ZyrTEC No 1{table QD ZyrTEC Allergy 10 Allergy 10 t} Allergy 10 MG MG MG Benadryl Benadryl No Benadryl Immunizations Ordered Immunization Filled Immunization Date Status Commen ts Source Name Name [facility]19 2020-12-22 [facility]:00 [facility] influenza, influenza, 2019-06-19 [facility], injectable, 00:00:00 quadrivalent, quadrivalent, preservative free preservative free influenza, influenza, 2019-06-19 Completed [facility] injectable, injectable, 00:00:00 quadrivalent, quadrivalent, preservative free preservative free influenza, influenza, 2018-07-23 Com[facility] unspecified unspecified 00:00:00 formulation formulation influenza, influenza, 2018-07-23 Completed [facility] unspecified unspecified 00:00:00 formulation formulation influenza, influenza, 2018-05-19 Completed [facility] injectable, injectable, 00:00:00 quadrivalent, quadrivalent, preservative free preservative free influenza, influenza, 2018-05-19 Completed [facility] injectable, injectable, 00:00:00 quadrivalent, quadrivalent, preservative free preservative free [facility] COVID-19 Unknown Completed [facility] COVID-19 Unknown Com[facility] COVID-19 Unknown Completed [facility] COVID-19 Unknown Completed [facility] COVID-19 Unknown Completed [facility] pneumococcal pneumococcal Unknown Completed [facility] PCV 13 conjugate PCV 13 pneumococcal pneumococcal Unknown Completed [facility] polysaccharide PPV23 polysaccharide PPV23 pneumococcal pneumococcal Unknown Completed [facility] PCV 13 conjugate PCV 13 pneumococcal pneumococcal Unknown Completed [facility] polysaccharide PPV23 polysaccharide PPV23 Vital Signs Vital Name Observation Time Observation Value Comments Source height 2022-12-17 13:20:00 69 [in_i] [facility] weight 2022-12-17 13:20:00 199.0 [lb_av] [facility] temperature 2022-12-17 13:20:00 97.2 [degF] [facility] bmi 2022-12-17 13:20:00 29.38 kg/m2 [facility] oximetry 2022-12-17 13:20:00 97 % [facility] respiratory rate 2022-12-17 13:20:00 17 /min Comm on [facility] blood pressure 2022-12-17 13:20:00 114 mm[Hg] [facility] - systolic [facility] blood pressure 2022-12-17 13:20:00 56 mm[Hg] [facility] diastolic [facility] height 2022-12-04 09:30:00 69 [in_i] [facility] weight 2022-12-04 09:30:00 205 [lb_av] [facility] temperature 2022-12-04 09:30:00 96.4 [degF] [facility] bmi 2022-12-04 09:30:00 30.27 kg/m2 Common S pirit [facility] oximetry 2022-12-04 09:30:00 98 % [facility] respiratory rate 2022-12-04 09:30:00 16 /min Comm on [facility] blood pressure 2022-12-04 09:30:00 134 mm[Hg] Common [facility] - systolic [facility] blood pressure 2022-12-04 09:30:00 60 mm[Hg] Common [facility] - diastolic [facility] height 2022-11-26 08:20:00 69 [in_i] Common [facility] weight 2022-11-26 08:20:00 203.2 [lb_av] [facility] temperature 2022-11-26 08:20:00 96.8 [degF] [facility] bmi 2022-11-26 08:20:00 30 kg/m2 Common S [facility] oximetry 2022-11-26 08:20:00 97 % Common [facility] respiratory rate 2022-11-26 08:20:00 18 /min Comm on [facility] blood pressure 2022-11-26 08:20:00 126 mm[Hg] Common [facility] systolic [facility] blood pressure 2022-11-26 08:20:00 73 mm[Hg] Common [facility] - diastolic [facility] height 2022-05-27 08:50:00 69 [in_i] [facility] weight 2022-05-27 08:50:00 198.1 [lb_av] [facility] temperature 2022-05-27 08:50:00 97.6 [degF] [facility] bmi 2022-05-27 08:50:00 29.25 kg/m2 Common [facility] oximetry 2022-05-27 08:50:00 94 % [facility] 2022-05-27 08:50:00 16 /min Comm on [facility] blood pressure 2022-05-27 08:50:00 116 mm[Hg] Common [facility] - systolic [facility] blood pressure 2022-05-27 08:50:00 60 mm[Hg] Common [facility] - diastolic [facility] height 2022-02-25 08:50:00 69 [in_i] Common S [facility] weight 2022-02-25 08:50:00 199.7 [lb_av] Common [facility] temperature 2022-02-25 08:50:00 97.3 [degF] Common S [facility] bmi 2022-02-25 08:50:00 29.49 kg/m2 [facility] oximetry 2022-02-25 08:50:00 94 % [facility] respiratory rate 2022-02-25 08:50:00 16 /min Comm on [facility] blood pressure 2022-02-25 08:50:00 121 mm[Hg] Common [facility] - systolic [facility] blood pressure 2022-02-25 08:50:00 65 mm[Hg] Common [facility] - diastolic [facility] height 2021-11-27 15:30:00 69 [in_i] Common [facility] weight 2021-11-27 15:30:00 200.8 [lb_av] [facility] temperature 2021-11-27 15:30:00 97.5 [degF] [facility] bmi 2021-11-27 15:30:00 29.65 kg/m2 Common [facility] oximetry 2021-11-27 15:30:00 98 % Common [facility] respiratory rate 2021-11-27 15:30:00 18 /min Comm on [facility] blood pressure 2021-11-27 15:30:00 132 mm[Hg] Common [facility] - systolic [facility] blood pressure 2021-11-27 15:30:00 67 mm[Hg] [facility] Height 2021-11-01 00:00:00 68 [in_i] [facility] Systolic blood 2023-05-08 15:37:00 111 mm[Hg] [facility] pressure Diastolic blood 2023-05-08 15:37:00 61 mm[Hg] [facility] pressure Heart rate 2023-05-08 15:37:00 59 /min [facility] Oxygen saturation in 2023-05-08 15:37:00 94 /min [facility] Arterial blood by Pulse oximetry Body height 2023-05-08 15:34:00 177.8 cm [facility] Body weight 2023-05-08 15:34:00 88.996 kg [facility] BMI 2023-05-08 15:34:00 28.15 kg/m2 [facility] Respiratory rate 2023-03-19 20:08:00 18 /min [facility] Systolic blood 2022-11-24 17:16:00 119 mm[Hg] Method [facility] pressure Diastolic blood 2022-11-24 17:16:00 79 mm[Hg] [facility] pressure Heart rate 2022-11-24 17:16:00 54 /min [facility] Body temperature 2022-11-24 17:16:00 36.28 Yara [facility] Body height 2022-11-24 17:16:00 177.8 cm [facility] Body weight 2022-11-24 17:16:00 92.534 kg [facility] BMI 2022-11-24 17:16:00 29.27 kg/m2 [facility] Oxygen saturation in 2022-11-24 17:16:00 97 /min [facility] Arterial blood by Pulse oximetry Respiratory rate 2022-01-30 17:24:00 16 /min [facility] Weight 2016-11-27 16:30:00 [facility] Height 2016-11-27 16:30:00 [facility] Temperature Oral (F) 2016-11-27 16:30:00 98.1 F [facility] Heart Rate 2016-11-27 16:30:00 [facility] Diastolic (mm Hg) 2016-11-27 16:30:00 [facility] Systolic (mm Hg) 2016-11-27 16:30:00 [facility] Weight 2016-08-14 18:30:00 [facility] Height 2016-08-14 18:30:00 [facility] Heart Rate 2016-08-14 18:30:00 [facility] Diastolic (mm Hg) 2016-08-14 18:30:00 [facility] Systolic (mm Hg) 2016-08-14 18:30:00 [facility] Weight 2016-07-17 16:30:00 [facility] Height 2016-07-17 16:30:00 [facility] Heart Rate 2016-07-17 16:30:00 [facility] Diastolic (mm Hg) 2016-07-17 16:30:00 [facility] Systolic (mm Hg) 2016-07-17 16:30:00 [facility] Procedures Procedure Date / Time Performing Source Performed Clinician PROTHROMBIN TIME WITH INR 2023-08-26 Provider, Not In [facility] PROTHROMBIN TIME WITH INR 2023-08-14 Provider, Not In [facility] 00:00:00 [facility] PROTHROMBIN TIME WITH INR 2023-07-27 Provider, Not In [facility] 00:00:00 [facility] PROTHROMBIN TIME WITH INR 2023-07-16 Provider, Not In [facility] 00:00:00 [facility] PROTHROMBIN TIME WITH INR 2023-07-03 Provider, Not In [facility] 00:00:00 [facility] PROTHROMBIN TIME WITH INR 2023-07-02 Provider, Not In [facility] 00:00:00 [facility] PROTHROMBIN TIME WITH INR 2023-06-22 Provider, Not In [facility] 00:00:00 [facility] PROTHROMBIN TIME WITH INR 2023-05-28 Provider, Not In [facility] 00:00:00 [facility] PROTHROMBIN TIME WITH INR 2023-05-05 Provider, Not In [facility] 00:00:00 [facility] PROTHROMBIN TIME WITH INR 2023-04-20 Provider, Not In [facility] 00:00:00 [facility] PROTHROMBIN TIME WITH INR 2023-04-14 Provider, Not In [facility] 00:00:00 [facility] PROTHROMBIN TIME WITH INR 2023-04-01 Provider, Not In [facility] 00:00:00 [facility] PROTHROMBIN TIME WITH INR 2023-03-22 Provider, Not In [facility] 00:[facility] CARDIAC OVERREAD 2023-03-19 Lewis Esparza 20:37:23 Hospital CV CTA CORONARY ARTERIES W 2023-03-19 Lewis Esparza [facility] CONTRAST 20:20:26 Hospital POC CREATININE 2023-03-19 Lewis Esparza 19:44:00 Hospital ESTIMATED GFR 2023-03-19 Lewis Esparza 19:44:00 Hospital PROTHROMBIN TIME WITH INR 2023-03-18 Provider, Not In [facility] 00:00:00 [facility] PROTHROMBIN TIME WITH INR 2023-03-07 Provider, Not In [facility] 00:00:00 [facility] TTE COMPLETE, WO CONTRAST, W 2023-02-19 Lewis Esparza Met hodist DOPPLER ([id number]) 17:20:00 Hospital PROTHROMBIN TIME WITH INR 2023-02-12 Provider, Not In [facility] 00:00:00 [facility] PROTHROMBIN TIME WITH INR 2023-01-31 Provider, Not In [facility] 00:00:00 [facility] XR HIP 2-3 VIEWS RIGHT 2023-01-28 Shoshana Lopes 18:56:50 Hospital XR PELVIS 1 OR 2 VW 2023-01-09 Shoshana Lopes 20:50:07 Hospital XR HIP 2-3 VIEWS RIGHT 2023-01-09 Shoshana Lopes 20:07:40 Hospital PROTHROMBIN TIME WITH INR 2022-12-22 Provider, Not In [facility] 00:00:00 [facility] PROTHROMBIN TIME WITH INR 2022-12-15 Provider, Not In [facility] 00:00:00 [facility] PROTHROMBIN TIME WITH INR 2022-11-25 Provider, Not In [facility] 00:00:00 [facility] US CAROTID DUPLEX BILATERAL 2022-11-24 Taqueria Funez odist 17:34:36 Hospital PROTHROMBIN TIME WITH INR 2022-10-25 Provider, Not In [facility] 00:00:00 [facility] PROTHROMBIN TIME WITH INR 2022-10-07 Provider, Not In [facility] 00:00:00 [facility] PROTHROMBIN TIME WITH INR 2022-09-25 Provider, Not In [facility] 00:00:00 [facility] PROTHROMBIN TIME WITH INR 2022-09-19 Provider, Not In [facility] 00:00:00 [facility] PROTHROMBIN TIME WITH INR 2022-09-08 Provider, Not In [facility] 00:00:00 [facility] PROTHROMBIN TIME WITH INR 2022-08-27 Provider, Not In [facility] 00:00:00 [facility] LIPID PANEL 2022-08-25 Lewis Esparza 14:20:00 Hospital COMPREHENSIVE METABOLIC PANEL 2022-08-25 Lewis Esparza thodist 14:20:00 Hospital PROTHROMBIN TIME WITH INR 2022-08-15 Provider, Not In [facility] 00:00:00 [facility] PROTHROMBIN TIME WITH INR 2022-07-16 Provider, Not In [facility] 00:00:00 [facility] PROTHROMBIN TIME WITH INR 2022-06-24 Provider, Not In [facility] 00:00:00 [facility] PROTHROMBIN TIME WITH INR 2022-06-03 Provider, Not In [facility] 00:00:00 [facility] PROTHROMBIN TIME WITH INR 2022-05-14 Provider, Not In [facility] 00:00:00 [facility] PROTHROMBIN TIME WITH INR 2022-04-29 Provider, Not In [facility] 00:00:00 [facility] PROTHROMBIN TIME WITH INR 2022-04-14 Provider, Not In [facility] 00:00:00 [facility] PROTHROMBIN TIME WITH INR 2022-04-03 Provider, Not In [facility] 00:00:[address] ANGIOGRAM CHEST ABDOMEN PELVIS 2022-04-01 Taqueria Funez W AND OR WITHOUT CONTRAST 21:30:27 Hospit al ESTIMATED GFR 2022-04-01 Lewis Esparza 17:12:00 Hospital POC PANEL 2022-04-01 Lewis Esparza 17:12:00 Hospital PROTHROMBIN TIME WITH INR 2022-03-24 Provider, Not In [facility] 00:00:00 [facility] PROTHROMBIN TIME WITH INR 2022-03-04 Provider, Not In [facility] 00:00:00 [facility] PROTHROMBIN TIME WITH INR 2022-02-06 Provider, Not In [facility] 00:00:00 [facility] PROTHROMBIN TIME WITH INR 2022-02-04 Provider, Not In [facility] 00:00:00 System [facility] SURGICAL PATHOLOGY REQUEST 2022-01-30 Killian Riley odyuri 18:28:00 [facility] COLONOSCOPY 2022-01-30 Killian Riley 16:22:00 [facility] Hospital ESOPHAGOGASTRODUODENOSCOPY (EGD) 2022-01-30 Elis Riley 16:22:00 L[facility] Hospital PROTHROMBIN TIME WITH INR 2022-01-16 Provider, Not In [facility] 00:00:00 [facility] PROTHROMBIN TIME WITH INR 2022-01-06 Provider, Not In [facility] 00:00:00 [facility] PROTHROMBIN TIME WITH INR 2021-12-25 Provider, Not In [facility] 00:00:00 [facility] PROTHROMBIN TIME WITH INR 2021-12-11 Provider, Method ist 00:00:00 [facility] Hospital PROTHROMBIN TIME WITH INR 2021-12-05 Provider, Method ist 00:00:00 [facility] Hospital PROTHROMBIN TIME WITH INR 2021-11-27 Provider, Method ist 00:00:00 Historical Hospital PV TRANSCRANIAL DOPPLER 2021-11-25 Taqueria Funez Methodis t INTRACRANIAL ARTERIES COMPLETE 17:40:57 H ospital US CAROTID DUPLEX BILATERAL 2021-11-25 Taqueria Funez Meth odist 17:40:36 Hospital Plan of Care Planned Activity Planned Date Details Comments Source Future Scheduled 2023-08-26 Screening for [facility] Test 09:26:09 malignant neoplasm of colon (procedure) [code = 954701013] Future Scheduled 2023-08-26 Screening for [facility] Test 09:26:09 malignant neoplasm of colon (procedure) [code = 027886548] Future Scheduled 2023-08-26 Screening for [facility] Test 09:26:09 malignant neoplasm of colon (procedure) [code = 929867836] Future Scheduled 2023-08-26 Pneumococcal Vaccine: [facility] Test 09:26:09 Pediatrics (0 to 5 Years) and At-Risk Patients (6 to 64 Years) (1 - PCV) [code = Pneumococcal Vaccine: Pediatrics (0 to 5 Years) and At-Risk Patients (6 to 64 Years) (1 - PCV)] Future Scheduled 2023-08-26 Hepatitis C screening [facility] Test 09:26:09 (procedure) [code = 747627465] Future Scheduled 2023-08-26 Screening for [facility] Test 09:26:09 malignant neoplasm of cervix (procedure) [code = 117047493] Future Scheduled 2023-08-26 BREAST CANCER [facility] Test 09:26:09 SCREENING [code = BREAST CANCER SCREENING] Future Scheduled 2023-08-26 SHINGLES VACCINES (1 Met [facility] Test 09:26:09 of 2) [code = SHINGLES VACCINES (1 of 2)] Future Scheduled 2023-08-26 HEPATITIS B VACCINES Met [facility] Test 09:26:09 (1 of 3 - Risk 3-dose series) [code = HEPATITIS B VACCINES (1 of 3 - Risk 3-dose series)] Future Scheduled 2023-08-26 COVID-19 VACCINE (6 - [facility] Test 09:26:09 season) [code = COVID-19 VACCINE (6 - season)] Future Scheduled 2023-08-26 INFLUENZA VACCINE (#1) [facility] Test 09:26:09 [code = INFLUENZA VACCINE (#1)] Future Scheduled 2023-08-26 Screening for [facility] Test 09:26:09 malignant neoplasm of colon (procedure) [code = 992085821] Future Scheduled 2023-08-26 Screening for [facility] Test 09:26:09 malignant neoplasm of colon (procedure) [code = 004258398] Future Scheduled 2022-11-25 Pneumococcal Vaccine: [facility] Test 09:27:45 Pediatrics (0 to 5 Years) and At-Risk Patients (6 to 64 Years) (1 - PCV) [code = Pneumococcal Vaccine: Pediatrics (0 to 5 Years) and At-Risk Patients (6 to 64 Years) (1 - PCV)] Future Scheduled 2022-11-25 Hepatitis C screening [facility] Test 09:27:45 (procedure) [code = 613993575] Future Scheduled 2022-11-25 Screening for [facility] Test 09:27:45 malignant neoplasm of cervix (procedure) [code = 790925073] Future Scheduled 2022-11-25 BREAST CANCER [facility] Test 09:27:45 SCREENING [code = BREAST CANCER SCREENING] Future Scheduled 2022-11-25 SHINGLES VACCINES (1 Met [facility] Test 09:27:45 of 2) [code = SHINGLES VACCINES (1 of 2)] Future Scheduled 2022-11-25 COVID-19 VACCINE (5 - [facility] Test 09:27:45 Booster for Moderna series) [code = COVID-19 VACCINE (5 - Booster for Moderna series)] Future Scheduled 2022-11-25 INFLUENZA VACCINE Method [facility] Test 09:27:45 [code = INFLUENZA VACCINE] Future Scheduled 2022-11-25 HEPATITIS B VACCINES Met [facility] Test 09:27:45 (1 of 3 - Risk 3-dose series) [code = HEPATITIS B VACCINES (1 of 3 - Risk 3-dose series)] Future Scheduled 2022-11-25 COLONOSCOPY SCREENING [facility] Test 09:27:45 [code = COLONOSCOPY SCREENING] Encounters Start End Encounter Admission Attending Care Care Encounter Source Date/Time Date/Time Type Type Clinicians Facility Department ID 2023-02-27 Outpatient Mayers, STLMLC STLC [id number] Common 09:02:03 [place] [id number] [facility] 2023-01-05 Outpatient Mayers, STLMLC STLMLC [id number] Common 13:56:01 [place] [id number] [facility] 2022-11-24 Outpatient Mayers, STLMLC STLMLC [id number] Common 08:40:01 [place] [id number] [facility] 2022-05-26 Outpatient Mayers, STLMLC STLMLC [id number] Common 14:16:02 [place] [id number] [facility] 2021-12-19 Outpatient Mayers, STLMLC STLMLC [id number] Common 15:50:01 [place] [facility] 2021-11-27 Outpatient Mayers, STLMLC STLC [id number] Common 15:13:02 [place] [facility] 2023-08-26 2023-08-26 Telephone Gabriel, 1.2.840.1 [id number] 2100 [id number] Methodi 00:00:00 00:00:00 Sara 86789.1.1 997 3.430.2.7 Hospit a .3.321585 l .8 2023-08-17 2023-08-17 Telephone Gabriel, 1.2.840.1 [id number] 2099 [id number] Methodi 00:00:00 00:00:[address] 3.430.2.7 Hospit a .3.179432 l .8 2023-07-27 2023-07-27 Telephone Rios, 1.2.840.1 [id number] 2099 [id number] Methodi 00:00:00 00:00:[address] 3.430.2.7 Hospit a .3.037622 l .8 2023-07-24 2023-07-24 Orders Rios, 1.2.840.1 [id number] Methodi 00:00:00 00:00:00 Only Sara 86618.1.[address] 3.430.2.7 Hospit a .3.805005 l .8 2023-07-17 2023-07-17 Orders Rios, 1.2.840.1 [id number] 8300 Methodi 00:00:00 00:00:00 Only Sara 06809.1.[address] 3.430.2.7 Hospit a .3.053300 l .8 2023-07-16 2023-07-16 Telephone Rios, 1.2.840.1 [id number] 2099 [id number] Methodi 00:00:00 00:00:[address] 3.430.2.7 Hospit a .3.645432 l .8 2023-07-14 2023-07-14 Telephone Rios, 1.2.840.1 [id number] 2099 [id number] Methodi 00:00:00 00:00:[address] 3.430.2.7 Hospit a .3.206850 l .8 2023-07-10 2023-07-10 Orders Gabriel, 1.2.840.1 [id number] Methodi 00:00:00 00:00:00 Only Sara 54464.1.[address] 3.430.2.7 Hospit a .3.764453 l .8 2023-07-07 2023-07-07 Lewis Rodríguez 1.2.840.1 [id number] 2100 [id number] Methodi 00:00:00 00:00:[address] 3.430.2.7 Hospit a .3.679263 l .8 2023-07-03 2023-07-03 Telephone Emmanuel, 1.2.840.1 [id number] 2099 [id number] Methodi 00:00:00 00:00:00 Zahira A [address]83.1.[address] 3.430.2.7 Hospit a .3.316266 l .8 2023-07-03 2023-07-03 Orders Gabriel, 1.2.840.1 [id number] 2184 Methodi 00:00:00 00:00:00 Only Sara 08648.1.[address] 3.430.2.7 Hospit a .3.962751 l .8 2023-07-02 2023-07-02 RefLewis Rouse 1.2.840.1 [id number] 2099 [id number] Methodi 00:00:00 00:00:[address] 3.430.2.7 Hospit a .3.574899 l .8 2023-06-26 2023-06-26 Sang Rios 1.2.840.1 [id number] [id number] Methodi 00:00:00 00:00:00 Only Sara 68926.1.[address] 3.430.2.7 Hospit a .3.830223 l .8 2023 2023 Indigo Rios 1.2.840.1 [id number] 2100 [id number] Methodi 00:00:00 00:00:[address] 3.430.2.7 Hospit a .3.216980 l .8 2023-06-20 2023-06-20 Lewis Rodríguez 1.2.840.1 [id number] 2100 [id number] Methodi 00:00:00 00:00:[address] 3.430.2.7 Hospit a .3.355909 l .8 2023-06-19 2023-06-19 Orders Rios, 1.2.840.1 [id number] Methodi 00:00:00 00:00:00 Only Sara 84570.1.[address] 3.430.2.7 Hospit a .3.923555 l .8 2023-06-12 2023-06-12 Orders Rios, 1.2.840.1 [id number] Methodi 00:00:00 00:00:00 Only Sara 62323.1.[address] 3.430.2.7 Hospit a .3.933831 l .8 2023-06-05 2023-06-05 Orders Rios, 1.2.840.1 [id number] Methodi 00:00:00 00:00:00 Only Sara 64893.1.[address] 3.430.2.7 Hospit a .3.857719 l .8 2023-06-02 2023-06-02 Telephone Gabriel, 1.2.840.1 [id number] 2100 [id number] Methodi 00:00:00 00:00:[address] 3.430.2.7 Hospit a .3.297944 l .8 2023-05-29 2023-05-29 Orders Rios, 1.2.840.1 [id number] Methodi 00:00:00 00:00:00 Only Sara 90843.1.[address] 3.430.2.7 Hospit a .3.266165 l .8 2023-05-22 2023-05-22 Orders Rios, 1.2.840.1 [id number] Methodi 00:00:00 00:00:00 Only Sara 13483.1.[address] 3.430.2.7 Hospit a .3.463597 l .8 2023-05-15 2023-05-15 Orders Gabriel, 1.2.840.1 [id number] Methodi 00:00:00 00:00:00 Only Sara 19200.1.[address] 3.430.2.7 Hospit a .3.432044 l .8 2023-05-08 2023-05-08 Office IsaiasLewis 1.2.840.1 [id number] 2100 [id number] Methodi 10:20:00 11:24:25 Visit Pavel 30513.1.[address] 3.430.2.7 Hospit a .3.731983 l .8 2023-05-08 2023-05-08 Telephone Aydin 1.2.840.1 [id number] 2100 [id number] Methodi 00:00:00 00:00:[address] 3.430.2.7 Hospit a .3.384046 l .8 2023-05-08 2023-05-08 Orders Aydin 1.2.840.1 [id number] Methodi 00:00:00 00:00:00 Only Sobia 97651.1.[address] 3.430.2.7 Hospit a .3.238289 l .8 2023-05-08 2023-05-08 Orders Gabriel 1.2.840.1 [id number] Methodi 00:00:00 00:00:00 Only Sara 87653.1.[address] 3.430.2.7 Hospit a .3.819714 l .8 2023-05-08 2023-05-08 Outpatient ISAIAS LEWIS [facility] [id number] [place] 00:00:00 00:00:[address] 2023-05-05 2023-05-05 Telephone Gabriel 1.2.840.1 [id number] 2100 [id number] Methodi 00:00:00 00:00:[address] 3.430.2.7 Hospit a .3.350990 l .8 2023-05-01 2023-05-01 Orders Gabriel, 1.2.840.1 [id number] Methodi 00:00:00 00:00:00 Only Sara 41901.1.[address] 3.430.2.7 Hospit a .3.701857 l .8 2023-04-24 2023-04-24 Orders Gabriel, 1.2.840.1 [id number] Methodi 00:00:00 00:00:00 Only Sara 82369.1.[address] 3.430.2.7 Hospit a .3.632209 l .8 2023-04-22 2023-04-22 Telephone Gabriel, 1.2.840.1 [id number] 2100 [id number] Methodi 00:00:00 00:00:[address] 3.430.2.7 Hospit a .3.566365 l .8 2023-04-17 2023-04-17 Orders Gabriel, 1.2.840.1 [id number] 7538 Methodi 00:00:00 00:00:00 Only Sara 69323.1.[address] 3.430.2.7 Hospit a .3.830677 l .8 2023-04-14 2023-04-14 Telephone Gabriel, 1.2.840.1 [id number] 2100 [id number] Methodi 00:00:00 00:00:[address] 3.430.2.7 Hospit a .3.076410 l .8 2023-04-10 2023-04-10 Orders Gabriel, 1.2.840.1 [id number] Methodi 00:00:00 00:00:00 Only Sara 47139.1.[address] 3.430.2.7 Hospit a .3.688216 l .8 2023-04-03 2023-04-03 Orders Gabriel, 1.2.840.1 [id number] Methodi 00:00:00 00:00:00 Only Sara 77757.1.[address] 3.430.2.7 Hospit a .3.591386 l .8 2023-04-01 2023-04-01 Telephone Gabriel, 1.2.840.1 [id number] 2099 [id number] Methodi 00:00:00 00:00:[address] 3.430.2.7 Hospit a .3.788339 l .8 2023-03-27 2023-03-27 Orders Rios, 1.2.840.1 [id number] 7463 Methodi 00:00:00 00:00:00 Only Sara 92503.1.[address] 3.430.2.7 Hospit a .3.501347 l .8 2023-03-23 2023-03-23 Telephone Rios, 1.2.840.1 [id number] 2100 [id number] Methodi 00:00:00 00:00:[address] 3.430.2.7 Hospit a .3.944740 l .8 2023-03-23 2023-03-23 Telephone Rios, 1.2.840.1 [id number] 2100 [id number] Methodi 00:00:00 00:00:[address] 3.430.2.7 Hospit a .3.639406 l .8 2023-03-20 2023-03-20 Orders Rios, 1.2.840.1 [id number] 4025 Methodi 00:00:00 00:00:00 Only Sara 60556.1.[address] 3.430.2.7 Hospit a .3.288761 l .8 2023-03-19 2023-03-19 [facility] Isaias Lewis 1.2.840.1 [id number] Methodi 15:37:22 23:59:00 Encounter Pavel 20049.1.[address] 3.430.2.7 Hospit a .3.122901 l .8 2023-03-19 2023-03-19 [facility] 1.2.[facility]1 [id number] 631 [id number] Methodi 14:03:24 15:36:00 Encounter Pavel 24888.1.[address] 3.430.2.7 Hospit a .3.411943 l .8 2023-03-19 2023-03-19 Travel 1.2.840.1 1.2.723.238 0017 [id number] Methodi 00:00:00 00:00:[address] 3.430.2.7 0.2.7.3.698 Ho spita .3.017372 084.8 l .8 2023-03-19 2023-03-19 Outpatient [facility] [address] [place] 00:00:00 00:00:[address] 2023-03-19 2023-03-19 Outpatient [facility]AUGUSTON [facility] [address] [place] 00:00:00 00:00:[address] 2023-03-13 2023-03-13 Orders Gabriel, 1.2.840.1 [id number] 4264 Methodi 00:00:00 00:00:00 Only Sara 46639.1.[address] 3.430.2.7 Hospit a .3.946283 l .8 2023-03-12 2023-03-12 Travel 1.2.840.1 1.2.067.200 9079 556728 Methodi 00:00:00 00:00:[address] 3.430.2.7 0.2.7.3.698 Ho spita .3.618451 084.8 l .8 2023-03-12 2023-03-12 Orders Aydin, 1.2.840.1 [id number] 471635 9178 Methodi 00:00:00 00:00:00 Only Sobia 45646.1.[address] 3.430.2.7 Hospit a .3.240706 l .8 2023-03-09 2023-03-09 Telephone Gabriel, 1.2.840.1 [id number] 2099 696279 Methodi 00:00:00 00:00:[address] 3.430.2.7 Hospit a .3.913031 l .8 2023-03-06 2023-03-06 Office Lewis Esparza 1.2.840.1 [id number] 2100 396829 Methodi 11:20:00 12:02:15 Visit Pavel 93111.1.[address] 3.430.2.7 Hospit a .3.122920 l .8 2023-03-06 2023-03-06 Telephone Aydin, 1.2.840.1 072734300 2100 340552 Methodi 00:00:00 00:00:[address] 3.430.2.7 Hospit a .3.935482 l .8 2023-03-06 2023-03-06 Orders Aydin, 1.2.840.1 615427014 716835 0746 Methodi 00:00:00 00:00:00 Only Sobia 11303.1.[address] 3.430.2.7 Hospit a .3.823618 l .8 2023-03-06 2023-03-06 Travel 1.2.840.1 1.2.537.848 1232 828542 Methodi 00:00:00 00:00:[address] 3.430.2.7 0.2.7.3.698 Ho spita .3.397047 084.8 l .8 2023-03-06 2023-03-06 Orders Gabriel, 1.2.840.1 888193940 150785 3543 Methodi 00:00:00 00:00:00 Only Sara 71291.1.[address] 3.430.2.7 Hospit a .3.481116 l .8 2023-03-06 2023-03-06 Outpatient LEWIS ESPARZA [facility] 49895 [id number] [place] 00:00:00 00:00:[address] 2023-03-05 2023-03-05 Orders Aydin, 1.2.840.1 [id number] 575756 0799 Methodi 00:00:00 00:00:00 Only Sobia 89249.1.[address] 3.430.2.7 Hospit a .3.066031 l .8 2023-03-05 2023-03-05 Orders Perrin, 1.2.840.1 123500069 083825 2772 Methodi 00:00:00 00:00:00 Only Sobia 43290.1.[address] 3.430.2.7 Hospit a .3.338709 l .8 2023-02-27 2023-02-27 Orders Rios, 1.2.840.1 319254026 956355 0371 Methodi 00:00:00 00:00:00 Only Sara 22742.1.[address] 3.430.2.7 Hospit a .3.376380 l .8 2023-02-20 2023-02-20 Orders Rios, 1.2.840.1 918476124 664046 1102 Methodi 00:00:00 00:00:00 Only Sara 35695.1.[address] 3.430.2.7 Hospit a .3.160174 l .8 2023-02-19 2023-02-19 Travel 1.2.840.1 1.2.739.969 2627 629624 Methodi 00:00:00 00:00:[address] 3.430.2.7 0.2.7.3.698 Ho spita .3.320916 084.8 l .8 2023-02-19 2023-02-19 Outpatient LEWIS ESPARZA [facility] [address]6827 [id number] [place] 00:00:00 00:00:[address] 2023-02-13 2023-02-13 Orders Gabriel, 1.2.840.1 [id number] 815538 3524 Methodi 00:00:00 00:00:00 Only Sara 14200.1.[address] 3.430.2.7 Hospit a .3.127065 l .8 2023-02-12 2023-02-12 Telephone Gabriel, 1.2.840.1 345862992 2100 879905 Methodi 00:00:00 00:00:[address] 3.430.2.7 Hospit a .3.742107 l .8 2023-02-06 2023-02-06 Orders Rios, 1.2.840.1 942160087 318673 1237 Methodi 00:00:00 00:00:00 Only Sara 13719.1.[address] 3.430.2.7 Hospit a .3.091795 l .8 2023-02-02 2023-02-02 Telephone Rios, 1.2.840.1 353534981 2100 223906 Methodi 00:00:00 00:00:[address] 3.430.2.7 Hospit a .3.245875 l .8 2023-01-29 2023-01-29 Orders Rios, 1.2.840.1 044923463 192924 7963 Methodi 00:00:00 00:00:00 Only Sara 96745.1.[address] 3.430.2.7 Hospit a .3.548984 l .8 2023-01-29 2023-01-29 Orders Rios, 1.2.840.1 125197249 839496 4423 Methodi 00:00:00 00:00:00 Only Sara 05715.1.[address] 3.430.2.7 Hospit a .3.648408 l .8 2023-01-28 2023-01-28 Office Shoshana Lopes 1.2.840.1 620624347 301 9219689 Methodi 13:50:00 14:24:50 Visit B[address] 13783.1.[address] 3.430.2.7 Hospit a .3.780539 l .8 2023-01-28 2023-01-28 Travel 1.2.840.1 1.2.064.750 6322 434556 Methodi 00:00:00 00:00:[address] 3.430.2.7 0.2.7.3.698 Ho spita .3.429824 084.8 l .8 2023-01-28 2023-01-28 Outpatient SHOSHANA LOPES [facility] 2100 [id number] [place] 00:00:00 00:00:[address] 2023-01-28 2023-01-28 Outpatient SHOSHANA LPOES [facility] 2100 [id number] [place] 00:00:00 00:00:[address] 2023-01-19 2023-01-19 Refill Lewis Esparza 1.2.840.1 148989786 2100 760293 Methodi 00:00:00 00:00:[address] 3.430.2.7 Hospit a .3.291710 l .8 2023-01-09 2023-01-09 Office Shoshana Lopes 1.2.840.1 390347797 937 1598441 Methodi 15:00:00 16:02:27 [address] B[address] 72022.1.[address] 3.430.2.7 Hospit a .3.370180 l .8 2023-01-09 2023-01-09 Outpatient SHOSHANA LOPES [facility] 2100 [id number] [place] 00:00:00 00:00:[address] 2023-01-09 2023-01-09 Outpatient SHOSHANA LOPES [facility] 2100 [id number] [place] 00:00:00 00:00:[address] 2023-01-02 2023-01-02 Travel 1.2.840.1 1.2.889.242 6301 450163 Methodi 00:00:00 00:00:[address] 3.430.2.7 0.[facility]7.3.698 [facility] .[facility] 2023-01-01 2023-01-01 (TEL) STLMLC STLMLC [id number] Co mmon 00:00:00 00:00:00 [facility] 2022-12-22 2022-12-22 Telephone Gabriel 1.2.840.1 [id number] 2100 068752 Methodi 00:00:00 00:00:[address] 3.430.2.7 Hospit a .3.034452 l .8 2022-12-17 2022-12-17 OFFICE STLMLC STLMLC [id number] Co mmon 00:00:00 00:00:00 VISIT Spirit ESTAB PT - CHI LEVEL 4 [facility] 2022-12-15 2022-12-15 Telephone Rios, Mega.2.840.1 092934377 2100 210614 Methodi 00:00:00 00:00:[address] 3.430.2.7 Hospit a .3.204014 l .8 2022-12-15 2022-12-15 (TEL) STLMLC STLMLC 9890000 Co mmon 00:00:00 00:00:00 [facility] 2022-12-15 2022-12-15 (TEL) STLMLC STLMLC [id number] Co mmon 00:00:00 00:00:00 [facility] 2022-12-12 2022-12-12 Telephone Ruslan, Mega.2.840.1 [id number] 21 [id number] Methodi 00:00:00 00:00:[address] 3.430.2.7 Hospit a .3.431514 l .8 2022-12-04 2022-12-04 OFFICE STLMLC STLMLC [id number] Co mmon 00:00:00 00:00:00 VISIT Spirit ESTAB PT - CHI LEVEL 3 [facility] 2022-12-03 2022-12-03 (TEL) STLMLC STLMLC [id number] Co mmon 00:00:00 00:00:00 Spirit [facility] 2022-11-26 2022-11-26 OFFICE STLMLC STLMLC [id number] Co mmon 00:00:00 00:00:00 VISIT Spirit ESTAB PT - CHI LEVEL 4 [facility] 2022-11-26 2022-11-26 (TEL) STLMLC STLMLC [id number] Co mmon 00:00:00 00:00:00 [facility] 2022-11-25 2022-11-25 Telephone Gabriel, 1.2.840.1 [id number] 2100 675636 Methodi 00:00:00 00:00:[address] 3.430.2.7 Hospit a .3.704258 l .8 2022-11-24 2022-11-24 Office Kushal, 1.2.840.1 114382529 874437 1566 Methodi 11:00:00 11:10:00 Visit Taqueria 16991.1.[address] 3.430.2.7 Hospit a .3.370728 l .8 2022-11-24 2022-11-24 Outpatient EL [facility], [facility] [id number] [facility] 09:26:00 09:26:00 Self 07 [facility] 2022-11-24 2022-11-24 Travel 1.2.840.1 1.2.962.334 9821 718790 Methodi 00:00:00 00:00:[address] 3.430.2.7 0.2.7.3.698 Ho spita .3.254080 084.8 l .8 2022-11-24 2022-11-24 Outpatient [facility], [facility] [id number] 899 [place] 00:00:00 00:00:[address] TAQUERIA [address] 2022-11-24 2022-11-24 Office KUSHAL, 1.2.840.1 [id number] 5109 [place] 00:00:00 00:00:00 Visit TAQUERIA 76062.1.1 [address] .3.460940 .8 2022-11-24 2022-11-24 Travel 1.2.840.1 1.2.371.360 3972 730420 Methodi 00:00:00 00:00:[address] 3.430.2.7 0.2.7.3.698 Ho spita .3.879954 084.8 l .8 2022-10-27 2022-10-27 Telephone Rios, 1.2.840.1 128737059 2100 548955 Methodi 00:00:00 00:00:[address] 3.430.2.7 Hospit a .3.701299 l .8 2022-10-27 2022-10-27 Telephone Rios, 1.2.840.1 512493424 2099 042387 Methodi 00:00:00 00:00:[address] 3.430.2.7 Hospit a .3.679843 l .8 2022-10-08 2022-10-08 Telephone Rios, 1.2.840.1 684122619 2099 068946 Methodi 00:00:00 00:00:[address] 3.430.2.7 Hospit a .3.757004 l .8 2022-10-08 2022-10-08 Telephone Rios, 1.2.840.1 360140389 2099 043366 Methodi 00:00:00 00:00:[address] 3.430.2.7 Hospit a .3.486783 l .8 2022-10-07 2022-10-07 Telephone Emmanuel, 1.2.840.1 295056810 2099 508422 Methodi 00:00:00 00:00:00 Zahira A [address]25.1.[address] 3.430.2.7 Hospit a .3.767490 l .8 2022-10-07 2022-10-07 Telephone Emmanuel, 1.2.840.1 696681406 2099 066295 Methodi 00:00:00 00:00:00 Zahira A [address]52.1.[address] 3.430.2.7 Hospit a .3.165535 l .8 2022-09-25 2022-09-25 Telephone Gabriel, 1.2.840.1 [id number] 2099 342970 Methodi 00:00:00 00:00:[address] 3.430.2.7 Hospit a .3.305298 l .8 2022-09-25 2022-09-25 Telephone Gabriel, 1.2.840.1 [id number] 2099 040229 Methodi 00:00:00 00:00:[address] 3.430.2.7 Hospit a .3.085793 l .8 2022-09-19 2022-09-19 Telephone Gabriel, 1.2.840.1 485790128 2099 670733 Methodi 00:00:00 00:00:[address] 3.430.2.7 Hospit a .3.005146 l .8 2022-09-19 2022-09-19 Telephone Gabriel, 1.2.840.1 193808901 2099 757101 Methodi 00:00:00 00:00:[address] 3.430.2.7 Hospit a .3.751737 l .8 2022-09-08 2022-09-08 Telephone Gabriel, 1.2.840.1 [id number] 2099 854914 Methodi 00:00:00 00:00:[address] 3.430.2.7 Hospit a .3.084078 l .8 2022-09-08 2022-09-08 Telephone Gabriel, 1.2.840.1 [id number] 2099 629662 Methodi 00:00:00 00:00:[address] 3.430.2.7 Hospit a .3.076299 l .8 2022-09-05 2022-09-05 Office Lewis Esparza 1.2.840.1 [id number] 2099 647027 Methodi 11:30:00 14:54:56 Visit Pavel 55486.1.[address] 3.430.2.7 Hospit a .3.854522 l .8 2022-09-05 2022-09-05 Office Lewis Esparza 1.2.840.1 [id number] 2099 470211 Methodi 11:30:00 14:54:56 Visit Pavel 15718.1.[address] 3.430.2.7 Hospit a .3.465111 l .8 2022-09-05 2022-09-05 Telephone Corado, 1.2.840.1 [id number] 2099 365948 Methodi 00:00:00 00:00:[address] 3.430.2.7 Hospit a .3.122467 l .8 2022-09-05 2022-09-05 Refill Lewis Esparza 1.2.840.1 [id number] 2099 276725 Methodi 00:00:00 00:00:[address] 3.430.2.7 Hospit a .3.123213 l .8 2022-09-05 2022-09-05 Travel 1.2.840.1 1.2.903.010 4165 415255 Methodi 00:00:00 00:00:[address] 3.430.2.7 0.2.7.3.698 Ho spita .3.810771 084.8 l .8 2022-09-05 2022-09-05 Refill Lewis Esparza 1.2.840.1 [id number] 2099 246657 Methodi 00:00:00 00:00:[address] 3.430.2.7 Hospit a .3.528780 l .8 2022-09-05 2022-09-05 Travel 1.2.840.1 1.2.700.167 4332 454583 Methodi 00:00:00 00:00:[address] 3.430.2.7 0.2.7.3.698 Ho spita .3.463702 084.8 l .8 2022-09-05 2022-09-05 Telephone Corado, 1.2.840.1 [id number] 2099 027813 Methodi 00:00:00 00:00:[address] 3.430.2.7 Hospit a .3.185591 l .8 2022-08-28 2022-08-28 Telephone Gabriel, 1.2.840.1 [id number] 2099 847670 Methodi 00:00:00 00:00:[address] 3.430.2.7 Hospit a .3.295033 l .8 2022-08-28 2022-08-28 Orders JensenJanuary 1.2.840.1 020759646 58035507 Methodi 00:00:00 00:00:[address] 3.430.2.7 Hospit a .3.674965 l .8 2022-08-28 2022-08-28 Telephone Gabriel, 1.2.840.1 [id number] 2099 770413 Methodi 00:00:00 00:00:[address] 3.430.2.7 Hospit a .3.084452 l .8 2022-08-28 2022-08-28 Orders JensenJanuary 17.2.840.1 549687098 59266921 Methodi 00:00:00 00:00:[address] 3.430.2.7 Hospit a .3.666591 l .8 2022-08-19 2022-08-19 Lewis Rodríguez 1.2.840.1 705881883 2099 326683 Methodi 00:00:00 00:00:[address] 3.430.2.7 Hospit a .3.241672 l .8 2022-08-15 2022-08-15 Telephone Gabriel, 1.2.840.1 [id number] 2099 635525 Methodi 00:00:00 00:00:[address] 3.430.2.7 Hospit a .3.589736 l .8 2022-08-12 2022-08-12 Orders Gabriel, 1.2.840.1 [id number] 718929 4799 Methodi 00:00:00 00:00:00 Only Sara 50871.1.[address] 3.430.2.7 Hospit a .3.481877 l .8 2022-08-12 2022-08-12 Orders Dave, 1.2.840.1 [id number] 90413 93876 Methodi 00:00:00 00:00:00 Only Joseph 39493.1.[address] 3.430.2.7 Hospit a .3.952764 l .8 2022-08-11 2022-08-11 Refill Lewis Esparza 1.2.840.1 [id number] 2099 938658 Methodi 00:00:00 00:00:[address] 3.430.2.7 Hospit a .3.767849 l .8 2022-08-08 2022-08-08 Refill Lewis Esparza 1.2.840.1 873078235 2099 270223 Methodi 00:00:00 00:00:[address] 3.430.2.7 Hospit a .3.851881 l .8 2022-07-22 2022-07-22 Telephone Rios, 1.2.840.1 [id number] 2099 744460 Methodi 00:00:00 00:00:[address] 3.430.2.7 Hospit a .3.833074 l .8 2022-06-24 2022-06-24 Telephone Rios, 1.2.840.1 [id number] 2099 029499 Methodi 00:00:00 00:00:[address] 3.430.2.7 Hospit a .3.706014 l .8 2022-06-03 2022-06-03 Telephone Rios, 1.2.840.1 732307014 2099 007324 Methodi 00:00:00 00:00:[address] 3.430.2.7 Hospit a .3.090493 l .8 2022-05-27 2022-05-27 OFFICE STLMLC STLMLC [id number] Co mmon 00:00:00 00:00:00 VISIT Spirit ESTAB PT - CHI LEVEL 4 [facility] 2022-05-14 2022-05-14 Telephone Gabriel, 1.2.840.1 [id number] 2100 527774 Methodi 00:00:00 00:00:[address] 3.430.2.7 Hospit a .3.945156 l .8 2022-04-29 2022-04-29 Telephone Emmanuel, 1.2.840.1 [id number] 2099 507735 Methodi 00:00:00 00:00:00 Zahira A 82472.1.[address] 3.430.2.7 Hospit a .3.970102 l .8 2022-04-24 2022-04-24 Telephone Dave, 1.2.840.1 [id number] 441 5568402 Methodi 00:00:00 00:00:[address] 3.430.2.7 Hospit a .3.043746 l .8 2022-04-14 2022-04-14 Telephone Gabriel, 1.2.840.1 [id number] 2099 435831 Methodi 00:00:00 00:00:[address] 3.430.2.7 Hospit a .3.408471 l .8 2022-04-03 2022-04-03 Telephone Gabriel, 1.2.840.1 569726802 2099 646126 Methodi 00:00:00 00:00:[address] 3.430.2.7 Hospit a .3.140028 l .8 2022-04-01 2022-04-01 [facility] Kushal, 1.2.840.1 126780117 70568 98746 Methodi 12:28:12 23:59:00 Encounter Taqueria 02235.1.[address] 3.430.2.7 Hospit a .3.972193 l .8 2022-04-01 2022-04-01 [facility] Lewis Esparza 1.2.840.1 [id number] 552 5239841 Methodi 11:32:25 12:27:00 Encounter Pavel 23223.1.[address] 3.430.2.7 Hospit a .3.546882 l .8 2022-04-01 2022-04-01 Travel 1.2.840.1 1.2.793.078 3482 905793 Methodi 00:00:00 00:00:[address] 3.430.2.7 0.2.7.3.698 Ho spita .3.303903 084.8 l .8 2022-04-01 2022-04-01 Orders Dave, 1.2.840.1 [id number] 80598 Methodi 00:00:00 00:00:00 Only Joseph 33973.1.[address] 3.430.2.7 Hospit a .3.965548 l .8 2022-03-26 2022-03-26 Travel 1.2.840.1 1.2.775.018 8389 613968 Methodi 00:00:00 00:00:[address] 3.430.2.7 0.2.7.3.698 Ho spita .3.029880 084.8 l .8 2022-03-25 2022-03-25 Telephone Gabriel, 1.2.840.1 [id number] 2100 775766 Methodi 00:00:00 00:00:[address] 3.430.2.7 Hospit a .3.610814 l .8 2022-03-18 2022-03-18 Refill Lewis Esparza 1.2.840.1 [id number] 2099 287957 Methodi 00:00:00 00:00:[address] 3.430.2.7 Hospit a .3.976738 l .8 2022-03-07 2022-03-07 Office Lewis Esparza 1.2.840.1 [id number] 2099 331273 Methodi 11:45:00 12:40:51 Visit Pavel 42130.1.[address] 3.430.2.7 Hospit a .3.411530 l .8 2022-03-07 2022-03-07 Telephone Corado, 1.2.840.1 [id number] 2100 465933 Methodi 00:00:00 00:00:[address] 3.430.2.7 Hospit a .3.408638 l .8 2022-03-07 2022-03-07 Orders Corado, 1.2.840.1 574990534 278064 2792 Methodi 00:00:00 00:00:00 Only Sarai 60057.1.[address] 3.430.2.7 Hospit a .3.154612 l .8 2022-03-04 2022-03-04 Telephone Rios, 1.2.840.1 [id number] 2099 844812 Methodi 00:00:00 00:00:[address] 3.430.2.7 Hospit a .3.448735 l .8 2022-02-25 2022-02-25 (WELLNESS) STLMLC STLMLC [id number] Common 00:00:00 00:00:00 Wellness [facility] 2022-02-19 2022-02-19 Telephone Gabriel, 1.2.840.1 [id number] 2099 305699 Methodi 00:00:00 00:00:[address] 3.430.2.7 Hospit a .3.326842 l .8 2022-02-07 2022-02-07 Telephone Gabriel, 1.2.840.1 [id number] 2099 420141 Methodi 00:00:00 00:00:[address] 3.430.2.7 Hospit a .3.384395 l .8 2022-02-04 2022-02-04 Lewis Rodríguez 1.2.840.1 [id number] 2099 551904 Methodi 00:00:00 00:00:[address] 3.430.2.7 Hospit a .3.606693 l .8 2022-02-04 2022-02-04 Orders Gabriel, 1.2.840.1 751627348 298158 0252 Methodi 00:00:00 00:00:00 Only Sara 01593.1.[address] 3.430.2.7 Hospit a .3.408525 l .8 2022-02-04 2022-02-04 Telephone Gabriel, 1.2.840.1 [id number] 2099 263631 Methodi 00:00:00 00:00:[address] 3.430.2.7 Hospit a .3.477880 l .8 2022-01-30 2022-01-30 [facility], 1.2.840.1 [id number] 2099 109959 Methodi 10:13:00 12:57:00 Encounter Killian WalshElsa 46388.1.[address] 3.430.2.7 Hospit a .3.542101 l .8 2022-01-30 2022-01-30 Surgery [facility], 1.2.840.1 [id number] 65876 27421 Methodi 11:00:00 12:00:00 Killian Gilman 49031.1.1 014 s t 3.430.2.7 Hospit a .3.283431 l .8 2022-01-30 2022-01-30 Anesthesia Maite Mitchell Kaitlynn 1.2.840. 1 [id number] 9760116629 Methodi 11:14:00 11:58:00 Event Radha Jain 19865.1.[address] 3.430.2.7 Hospit a .3.187629 l .8 2022-01-29 2022-01-29 Telephone [facility], 1.2.840.1 [id number] 475 1357214 Methodi 00:00:00 00:00:00 Killian L. 22394.1.1 751 s t 3.430.2.7 Hospit a .3.955665 l .8 2022-01-29 2022-01-29 Travel 1.2.840.1 1.2.197.306 8905 086566 Methodi 00:00:00 00:00:[address] 3.430.2.7 0.2.7.3.698 Ho spita .3.592798 084.8 l .8 2022-01-27 2022-01-27 Telephone Osvaldo, 1.2.840.1 [id number] 634 8892752 Methodi 00:00:00 00:00:00 Killian Gilman 09402.1.1 722 s t 3.430.2.7 Hospit a .3.243382 l .8 2022-01-24 2022-01-24 Orders Gabriel, 1.2.840.1 [id number] 139694 9932 Methodi 00:00:00 00:00:00 Only Saar 80511.1.[address] 3.430.2.7 Hospit a .3.718629 l .8 2022-01-20 2022-01-20 Telephone Gabriel, 1.2.840.1 [id number] 2099 653221 Methodi 00:00:00 00:00:[address] 3.430.2.7 Hospit a .3.737562 l .8 2022-01-20 2022-01-20 Telephone Gabriel, 1.2.840.1 [id number] [id number] [facility] 00:00:00 00:00:[address] 3.430.2.7 Hospit a .3.459765 l .8 2022-01-09 2022-01-09 Orders Dave, 1.2.840.1 [id number] 00389 [facility] 00:00:00 00:00:00 Only Joseph 28855.1.[address] 3.430.2.7 Hospit a .3.389943 l .8 2022-01-09 2022-01-09 Telephone Lewis Esparza 1.2.840.1 [id number] [facility] 00:00:00 00:00:[address] 3.430.2.7 Hospit a .3.236754 l .8 2022-01-06 2022-01-06 Telephone Gabriel, 1.2.840.1 [id number] 2099 714258 [facility] 00:00:00 00:00:[address] 3.430.2.7 Hospit a .3.414205 l .8 2021-12-31 2021-12-31 Telephone Osvaldo, 1.2.840.1 [id number] 480 [id number] [facility] 00:00:00 00:00:00 Killian Gilman 80026.1.1 421 s t 3.430.2.7 Hospit a .3.495158 l .8 2021-12-31 2021-12-31 Orders Wade 1.2.840.1 [id number] 946041 3171 [facility] 00:00:00 00:00:00 Only Amyra 29830.1.[address] Donita 3.430.2.7 [facility]osp [facility] angel .3.736933 l .8 2021-12-26 2021-12-26 Telephone Osvaldo, 1.2.840.1 [id number] 904 [id number] [facility] 00:00:00 00:00:00 Killian Gilman 81849.1.1 293 s t 3.430.2.7 Hospit a .3.984118 l .8 2021-12-25 2021-12-25 Telephone Gabriel, 1.2.840.1 [id number] 2099 922813 [facility] 00:00:00 00:00:[address] 3.430.2.7 Hospit a .3.662529 l .8 2021-12-20 2021-12-20 Lewis Rodríguez 1.2.840.1 [id number] 2099 623815 [facility] 00:00:00 00:00:[address] 3.430.2.7 Hospit a .3.826478 l .8 2021-12-12 2021-12-12 Telephone Gabriel, 1.2.840.1 [id number] 2099 292473 [facility] 00:00:00 00:00:[address] 3.430.2.7 Hospit a .3.460184 l .8 2021-12-06 2021-12-06 Telephone Gabriel 1.2.840.1 [id number] 2100 774582 [facility] 00:00:00 00:00:[address] 3.430.2.7 Hospit a .3.068418 l .8 2021-11-27 2021-11-27 [facility] [id number] Co mmon 00:00:00 00:00:00 VISIT [facility] PT LEVEL 4 - [facility] 2021-11-27 2021-11-27 Telephone Gabriel 1.2.840.1 [id number] 2100 [id number] [facility] 00:00:00 00:00:[address] 3.430.2.7 Hospit a .3.695472 l .8 2021-11-25 2021-11-25 Office Kushal 1.2.840.1 [id number] 864260 7825 [facility] 11:40:00 12:11:12 Visit [place] 42286.1.[address] 3.430.2.7 Hospit a .3.797858 l .8 2021-11-25 2021-11-25 Telephone Gris Culp 1.2.840.1 [id number] [facility] 00:00:00 00:00:[address] 3.430.2.7 Hospit a .3.525991 l .8 2021-11-25 2021-11-25 Travel 1.2.840.1 1.2.971.897 8460 074196 [facility] 00:00:00 00:00:[address] 3.430.2.7 0.2.7.3.698 Ho spita .3.509065 084.8 l .8 2021-11-25 2021-11-25 Outpatient KUSHAL [facility] [id number] [place] 00:00:00 00:00:00 TAQUERIA 193 Method i 2021-11-25 2021-11-25 Outpatient KUSHAL, [facility] [id number] [place] 00:00:00 00:00:00 TAQUERIA 192 Method i 2021-11-20 2021-11-20 Outpatient OSVALDO, [facility] [id number] [place] 00:00:00 00:00:00 KILLIAN Mackey Method i 2021-11-01 2021-11-01 Outpatient GC_NIMD_Ibr PRIV PRIV 134 [id number] [facility] 06:25:00 06:25:00 aheim_N [id number] Medica l 2021-11-01 2021-11-01 Outpatient Latoya PRIV PRIV [id number] 00:00:00 00:00:00 Connor [id number] [facility] [id number] 2021-11-01 2021-11-01 [facility]at [facility] 14 [facility] 00:00:00 00:00:00 [facility] LatoyaARA_NIMDCarmelina MD: [id number] [address] , Ph. 2021-10-07 2021-10-07 Outpatient GC_NIMD_Ibr PRIV PRIV 134 [id number] [facility] 02:30:00 02:30:00 aheim_N [id number] Medica l 2021-10-07 2021-10-07 Outpatient Latoya PRIV PRIV [id number] ike-6 00:00:00 00:00:00 Connor [id number] [facility] [id number] 2021-10-07 2021-10-07 Nashaat [facility] 20201020 20 [facility] 00:00:00 00:00:00 [facility] LatoyaCARLOSNIMDCarmelina BLOUNT: [id number] [address] , Ph. 2021-10-06 2021-10-06 Outpatient GC_NIMD_Ibr PRIV PRIV 134 [id number] [facility] 10:10:00 10:10:00 aheim_N [id number] Medica l 2021-09-23 2021-09-23 Outpatient DELIA Hare [id number] [facility] 12:00:00 12:00:00 Nashaat 52 [facility] 2021-07-05 2021-07-05 Outpatient LEWIS ESPARZA [facility] [id number] [place] 00:00:00 00:00:[address] 2021-06-28 2021-06-28 Outpatient LEWIS ESPARZA [facility] [id number] [place] 00:00:00 00:00:[address] 2021-06-07 2021-06-07 Outpatient LEWIS ESPARZA [facility] [id number] [place] 00:00:00 00:00:[address] 2021-04-17 2021-04-17 Outpatient Tamiko PAGE [facility] [id number] [facility] 14:30:00 14:30:00 EVE oscar [facility] 2021-04-12 2021-04-12 Emergency [facility] [id number] [place] 00:00:00 00:00:00 RICKY [address] 2021-02-28 2021-02-28 Outpatient GC_NIMD_Ibr PRIV PRIV 134 [id number] [facility] 12:38:00 12:38:00 aheim_N [id number] Medica l 2020-12-11 2020-12-11 Outpatient BREONNA, [facility] [id number] [place] 00:00:00 00:00:00 JOHNNIE [address] 2020-10-31 2020-10-31 Outpatient DANIELE PENN [facility] [id number] [place] 00:00:00 00:00:[address] 2020-10-08 2020-10-08 Outpatient DANIELE PENN [facility] [id number] [place] 00:00:00 00:00:[address] 2020-10-08 2020-10-08 Outpatient VOLDANIELE JASMINE [facility] [id number] [place] 00:00:00 00:00:[address] 2020-10-08 2020-10-08 Outpatient DANIELE PENN [facility] [id number] [place] 00:00:00 00:00:[address] 2020-09-07 2020-09-07 Outpatient LEWIS ESPARZA [facility] [id number] [place] 00:00:00 00:00:[address] 2020-09-03 2020-09-03 Outpatient BENSON Klein, [facility] [id number] [facility] 12:00:00 12:00:00 Nashaat 12 [facility] 2020-09-03 2020-09-03 Outpatient LEWIS ESPARZA [facility] [id number] [place] 00:00:00 00:00:[address] 2020-09-03 2020-09-03 Outpatient LEWIS ESPARZA [facility] [id number] [place] 00:00:00 00:00:[address] 2020-09-03 2020-09-03 Outpatient LEWIS ESPARZA [facility] [id number] [place] 00:00:00 00:00:[address] 2020-02-22 2020-02-22 Outpatient LEWIS ESPARZA [facility] [id number] [place] [place] 00[place] 00:00:[address] 2020-02-09 2020-02-09 Outpatient DANIELE PENN [facility] [id number] [place] 00:00:00 00:00:[address] 2019-09-19 2019-09-19 Outpatient DANIELE PENN [facility] [id number] [place] 00:00:00 00:00:[address] 2019-09-19 2019-09-19 Outpatient VOLDANIELE JASMINE [facility] [id number] [place] 00:00:00 00:00:[address] 2019-09-19 2019-09-19 Outpatient DANIELE PENN [facility] [id number] [place] 00:00:00 00:00:[address] 2016-11-27 2016-11-27 EYES nullFlavo Devin Figueroa dd2b3 17e-0 [facility] 16:30:00 16:30:00 COLLINS Melgar MD [id number]-[id number]-o l [id number] Neema christensen fce37e 2016-11-27 2016-11-27 EYES nullFlavo Devin Arauz. dd2b3 17e-0 [facility] 16:30:00 16:30:00 PROBLEM tamiko Melgar MD [id number]-[id number]-m l [id number] Neema nn fce37e 2016-11-27 2016-11-27 Outpatient Devin Arauz. [id number] [facility]inic 10:30:00 10:30:00 Ramón Lopez MD alWo rks MD 2016-08-14 2016-08-14 Unknown nullFlavo Devin Arauz. 50cdb 7cc-7 [facility] 19:30:00 19:30:00 tamiko Melgar MD 928-44cd-8 l 81c-ecf70d Neema nn [id number] 2016-08-14 2016-08-14 Unknown nullFlavo Devin Arauz. 50cdb 7cc-7 [facility] 19:30:00 19:30:00 tamiko Melgar MD 928-44cd-8 l 81c-ecf70d Neema nn [id number] 2016-08-14 2016-08-14 Unknown nullFlavo Devin C. 04364 f5c-7 [facility] 18:30:00 18:30:00 tamiko Melgar MD 6h8-239l-r l [id number]-[id number] Neema nn [id number] 2016-08-14 2016-08-14 Unknown nullFlavo Devin C. [id number] f5c-7 [facility] 18:30:00 18:30:00 tamiko Melgar MD 7x5-505j-q l [id number] Neema nn [id number] 2016-08-14 2016-08-14 Outpatient Devin Devin C. [id number] [facility]Clinic 13:30:00 13:30:00 Ramón Lopez MD alWo rks MD 2016-07-17 2016-07-17 BOOKED ON nullFlavo Devin Arauz. bc5 abc58-4 [facility] 17:30:00 17:30:00 MONA Melgar MD 0ae-46a1-8 l [id number] Neema nn [id number] 2016-07-17 2016-07-17 BOOKED ON nullFlavo Devin Arauz. bc5 abc58-4 [facility] 17:30:00 17:30:00 MONA Melgar MD 0ae-46a1-8 l [id number] [facility] [id number] 2016-07-17 2016-07-17 BOOKED ON Alpesh Figueroa 4b1 3z408-j [facility] 16:30:00 16:30:00 MONA Melgar MD 8ee-42e4-8 l [id number]-[id number] [facility] fe0c13 2016-07-17 2016-07-17 BOOKED ON nullFlavo Devin Figueroa b4f 878v2-x [facility] 16:30:00 16:30:00 MONA Melgar MD x55-62cj-2 l [id number] [facility] 647a14 2016-07-17 2016-07-17 BOOKED ON nullFlavo Devin Figueroa 4b1 3y219-j [facility] 16:30:00 16:30:00 MONA Melgar MD 8ee-42e4-8 l [id number]-c667m1 [facility] fe0c13 2016-07-17 2016-07-17 BOOKED ON nullFlavo Devin Figueroa b4f 732b1-p [facility] 16:30:00 16:30:00 MONA Melgar MD y79-03ed-0 l [id number] [facility] [id number] 2016-07-17 2016-07-17 Outpatient Devin Figueroa [id number] [facility]Clinic 11:30:00 11:30:00 Ramón Lopez MD alDevang ram MD Results Test Description Test Time Test Comments Results Result Comments Source Prothrombin time with INR 2023-08-26 00:00:00 Test Item Value Reference Range Interpretation Comme nts INR (test code = 25166-4) 3.20 [facility] [id number] 11:50:00 Test Item Value Reference Range Interpretation Comments POC creatinine (test 0.7 mg/dl 0.5-0.9 Operato r Name: code = 47571-1) [facility] [id number] [facility] [id number] 11:50:00Estimated GFR>=90mL/min/1.73 m203/20/2023 6:50 [facility] with [id number] 00:00:00 Test Item Value Reference Range Interpretation Comments INR (test code = 02150-9) 3[facility]10 [facility] [id number] 07:57:00 Test Item Value Reference Range Interpretation Comments Glucose (test code 84 mg/dL 65-99 Fasting = 2345-7) reference interval BUN (test code = 15 mg/dL 7-25 3094-0) Creatinine (test 0.77 mg/dL 0.50-1.05 code = 2160-0) eGFR (test code = 88 See_Comment The eGFR i s based 8257) on the CKD-EPI 2020 equation. To calculate the n ew eGFR from a previous Creatinine or Cystatin Cresul t, go to https://www.kid ne y.org/proffernando hull/kdoqi/gfr%5F ca lculator [Automated message] The system which generated this result transmitted reference range : > OR = 60 mL/min/1.73m2. The reference range was not used to interpr et this result as normal/abnormal . BUN/creatinine NOT APPLICABLE See_Comment [Automated ratio (test code = message] The 3097-3) system which generated this result transmitted reference range : 6 - 22 (calc). The reference range was not used to interpr et this result as normal/abnormal . Sodium (test code 139 mmol/L 135-146 = 2951-2) Potassium (test 4.5 mmol/L 3.5-5.3 code = 2823-3) Chloride (test 103 mmol/L 98-110 code = 2075-0) CO2 (test code = 29 mmol/L 20-32 2027-) Calcium (test code 9.0 mg/dL 8.6-10.4 = 30737-2) Protein (test code 6.4 g/dL 6.1-8.1 = 2885-2) Albumin, S (test 4.0 g/dL 3.6-5.1 code = 1751-7) Globulin, total 2.4 See_Comment [Automated (test code = message] The 54755-1) system which generated this result transmitted reference range : 1.9 - 3.7 g/dL (calc). The reference range was not used to interpret this result as normal/abnormal . Albumin/globulin 1.7 See_Comment [Automated ratio (test code = message] The 175-0) system which generated this result transmitted reference range : 1.0 - 2.5 (calc ). The reference range was not used to interpr et this result as normal/abnormal . Total bilirubin 0.6 mg/dL 0.2-1.2 (test code = 1975-2) Alkaline 73 U/L 37-153 phosphatase (test code = 6768-6) AST (test code = 23 U/L 10-35 1920-8) ALT (test code = 16 U/L 6-29 1742-6) KETAN (test code = FASTING:YES KETAN) FASTING: YES RAC (test code = Performing RAC) Organization Information: Site ID: [facility] Name: [facility] Address: [address] [place] [id number] Director: Dalton Pascal [facility] [id number] 07:57:00 Test Item Value Reference Range Interpretation Comments Cholesterol, total 212 mg/dL <=200 H (test code = 2092-3) HDL cholesterol 56 mg/dL See_Comment [Automated (test code = 2084-9) message ] The system which generated this result transmitted reference range : > OR = 50. The reference range was not used to interpret this result as normal/abnormal . Triglycerides (test 93 mg/dL <=150 code = 2571-8) LDL cholesterol 137 mg/dL (calc) H Reference ra nge: calculated (test <100 Desira ble code = 31040-2) range <100 m g/dL for primary prevention; <70 mg/dL for patients with C HD or diabetic patients with > or = 2 CHD risk factors. LDL-C is now calculated using the Chele-Lacho calculation, which is a validated novel method providin g better accuracy than the Friedewald equation in the estimation of LDL-C. Chele S S et al. HARI. 2013;310(19): 6701-2259 (http://educati on .[employer] .com/faq/XAW326 ) Cholesterol/HDL 3.8 See_Comment [Automated ratio (test code = message] The 9830-1) system which generated this result transmitted reference range : <5.0 (calc). Th e reference range was not used to interpret this result as normal/abnormal . Non-HDL cholesterol 156 See_Comment H For ludmila ents with (test code = diabetes plus 1 65792-2) major ASCVD ris k factor, treatin g to a non-HDL-C goal of <100 mg/dL (LDL-C of <70 mg/dL) is considered a therapeutic option. [Automated message] The system which generated this result transmitted reference range : <130 mg/dL (calc). The reference range was not used to interpret this result as normal/abnormal . KETAN (test code = FASTING:YES KETAN) FASTING: YES RAC (test code = Performing RAC) Organization Information: Site ID: R[facility] Name: [facility] Address: [address] [place] [phone] Director: Dalton Pascal Lab Interpretation Abnormal (test code = 41371-3) [facility] [id number] 17:16:00 Test Item Value Reference Range Interpretation Comments POC creatinine (test 0.7 mg/dl 0.5-0.9 Operato r Name: code = 35480-5) Melvi Arriagaice ID: [id number] POC hematocrit (test 42 % 37-47 code = 4544-3) [facility] [id number] 17:16:00Estimated GFR>=90mL/min/1.73 m204/01/2022 12:16 [facility] [id number] 17:47:35 Test Item Value Reference Range Interpretation Comments Case number (test code = [id number]) Surgical pathology See link below for report (test code = PDF Lab Report 2255) Result status (test code This is Final Report = [id number]) for [id number] [facility]
[2023-08-27 13:50] LABS: Specific Gravity 1.012 (1.005-1.030); Urine Bacteria None Seen /HPF (<20); Urine Bilirubin NEGATIVE (Negative); Urine Blood Trace (Negative); Urine Clarity Extremely Turbid (Clear); Urine Color Yellow (Yellow); Urine Glucose NEGATIVE (Negative); Urine Mucus Slight /HPF (None Seen); Urine Protein 1+ (Negative); Urine RBC <5 /HPF (None Seen); Urine Urobilinogen Normal (Normal)
[2023-08-27 14:13] LABS: Absolute Lymphocytes (CBC) 1.7 K/uL (0.7-4.9); Hematocrit 39.1 % (36.0-45.0); Lymphocytes % 22.5 % (15.3-44.8); MCV 84.6 fL (80-100); MPV 7.2 fL (7.6-11.3); Platelets 372 thou/uL (152-406); RBC Red Blood Cell Count 4.62 M/uL (3.86-4.86)
[2023-08-27 14:32] LABS: Albumin 3.6 g/dL (3.4-5.0); Bilirubin Total 0.4 mg/dL (0.2-1.0); Protein, Total 7.7 g/dL (6.4-8.2); Troponin High Sensitivity 6.6 pg/mL (<58.9)
[2023-08-27] MEDS ORDERED: NA CHLORIDE 0.9% 1,000 ML ONE (14:47)
[2023-08-27] MEDS ORDERED: ONDANSETRON 4 MG/2 ML VIAL ONE (14:47)
--- NOTE | 2023-08-27 15:55 | RAD REPORT ---
EXAM DESCRIPTION: CT - Abdomen Pelvis W Contrast - 08/27/2023 2:48 pm CLINICAL HISTORY: ABD PAIN COMPARISON: No comparisons TECHNIQUE: Thin cut axial CT imaging of the abdomen and pelvis was performed following intravenous a dministration of 100 mL Isovue 300. Multiplanar reformats were generated and reviewed. All CT scans are performed using dose optimization technique as appropriate and may include automated exposure control or mA/KV adjustment according to patient size. FINDINGS: No suspicious findings in the lung bases. The liver shows numerous fluid density well-circumscribed lesions, largest within the right lobe dalia uring 2 cm, not well characterized, but suggestive of cysts. Subcapsular inferior right lobe margin 2 .4 x 2.3 cm lesion with nodular marginal enhancement is most suggestive of a hemangioma. Spleen, adre nal glands, and pancreas show no suspicious findings. Gallbladder shows areas of wall hyperdensity mccoy ggesting wall calcifications, suggesting porcelain gallbladder. Ovoid mildly hyperdense dependent 11 millimeters structure within the gallbladder body may represent a dependent stone versus polyp. Symmetric renal function is seen with no hydronephrosis or suspicious renal mass. No dilated bowel loops. Short segment wall thickening with adjacent fat stranding and mucosal hyperen hancement involving the proximal to mid sigmoid colon. Trace adjacent fluid in the pelvis. No localiz ed fluid collections. No free air, or other inflammatory stranding. No hernia, mass or bulky lymphade nopathy. The urinary bladder is without significant finding. Dissection flap seen throughout the included lower thoracic aorta, and abdominal aorta, extending byron ng the left common iliac and external iliac arteries where it terminates. The celiac axis, SMA, right renal artery, AGNES, right common iliac and left internal iliac vessels arise from the right antro lat eral lumen which demonstrates relatively decreased opacification, probably representing the false lum en. No evidence of vascular occlusion No suspicious bony findings. IMPRESSION: Sequelae of acute proximal to mid sigmoid diverticulitis. Trace adjacent free fluid with no adjacent paracolic collections or other evidence of complications. Aortic dissection flap as above, with multiple vessels appearing to arise from the false lumen, howev er without evidence of vascular occlusion. Per history, this may be a known aneurysm, although no felicitas or comparison images are available for comparison. Incidental findings as above, including suggestion of porcelain gallbladder, with an 11 millimeter ga llbladder polyp versus mildly hyperdense stone, as well as benign-appearing hepatic lesions, not well characterized, as detailed above. The findings were communicated to Dr. Mayers on 08/27/2023 at 15:42 hours.
[2023-08-27] MEDS ORDERED: NA CHLORIDE 0.9% 0 ML ONE (16:41)
[2023-08-27] MEDS ORDERED: CIPROFLOXACIN 400mg IV 0 MG/0 ML BAG IV ONE (16:41)
[2023-08-27] MEDS ORDERED: METRONIDAZOLE 500mg IVPB 500 MG/100 ML BAG IV ONE (16:42)
--- NOTE | 2023-08-27 16:48 | ER ---
Nurse's Notes [facility] Name: Sharron Botello Age: 63 yrs Sex: Female : 1960 Arrival Date: 08/27/2023 Time: 12:49 Bed 10 Private MD: Garland Mayers Diagnosis: Diverticulitis of intestine, part unspecified, without perforation or abscess without bleeding Presentation: 08/27 13:12 Coronavirus screen: Vaccine status: Patient reports receiving the 2nd dose of the covid kd3 vaccine. Ebola Screen: No symptoms or risks identified at this time. Initial Sepsis Screen: Does the patient meet any 2 criteria? No. Patient's initial sepsis screen is negative. Does the patient have a suspected source of infection? No. Patient's initial sepsis screen is negative. Risk Assessment: Do you want to hurt yourself or someone else? Patient reports no desire to harm self or others. Onset of symptoms was August 27, 2023. 13:12 Method Of Arrival: Ambulatory kd3 13:12 Acuity: DAVION 3 kd3 13:13 Chief complaint: Patient states: I have had abdominal pain on the left side, gas and me1 diarrhea. I am not sure if it is my ovary or stomach related. I had been on antibiotics for a bladder infection and i have been off of those antibiotics since August 15. I has on them from the until the . Triage Assessment: 13:13 General: Appears in no apparent distress. Behavior is calm, cooperative. Pain: kd3 Complains of pain in abdomen. GI: Reports diarrhea, nausea. Historical: - Allergies: 13:13 No Known Allergies; kd3 - Immunization history:: Adult Immunizations up to date. - Social history:: Smoking status: Patient denies any tobacco usage or history of. Screenin:42 [facility] Fall Risk Assessment (Adult) History of falling in the last 3 months, me1 including since admission No falls in past 3 months (0 pts) Confusion or Disorientation No (0 pts) Intoxicated or Sedated No (0 pts) Impaired Gait No (0 pts) Mobility Assist Device Used No (0 pt) Altered Elimination No (0 pt) Score/Fall Risk Level 0 - 2 = Low Risk. Abuse screen: Denies threats or abuse. Nutritional screening: No deficits noted. Tuberculosis screening: No symptoms or risk factors identified. Assessment: 14:42 General: Appears comfortable, well groomed, well developed, well nourished, Behavior is me1 calm, cooperative, appropriate for age, Reports I have had abdominal pain on the left side, gas and diarrhea. I am not sure if it is my ovary or stomach related. I had been on antibiotics for a bladder infection and i have been off of those antibiotics since August 15. I has on them from the until the . 14:42 Pain: Complains of pain in abdomen Pain does not radiate. Pain currently is 4 out of 10 me1 on a pain scale. Quality of pain is described as crampy, tender, Pain began mid July. Is intermittent, episodic. Neuro: Level of Consciousness is awake, alert, obeys commands. Neuro: Oriented to person, place, time, situation, Appropriate for age. Cardiovascular: Capillary refill < 3 seconds Patient's skin is warm and dry. Respiratory: Airway is patent Respiratory effort is even, unlabored, Respiratory pattern is regular, symmetrical. GI: Bowel sounds present X 4 quads. Abd is soft X 4 quads Reports diarrhea, nausea. Vital Signs: 13:12 Pulse 64; Resp 16; Temp 97.7(TE); Pulse Ox 96% ; Weight 88.45 kg; Height 5 ft. 10 in. ; kd3 Pain 4/10; 13:13 BP 101 / 59; kd3 14:41 BP 108 / 66; Pulse 53; Resp 17; Pulse Ox 98% on R/A; me1 16:24 BP 115 / 70; Pulse 66; Resp 16; Pulse Ox 100% on R/A; me1 18:15 BP 121 / 63; Pulse 62; Resp 16; Pulse Ox 100% on R/A; me1 13:12 Body Mass Index 27.98 (88.45 kg, 177.8 cm) kd3 13:12 Pain Scale: Adult kd3 ED Course: 12:52 Patient arrived in ED. mr 12:52 Garland Mayers DO is Private Physician. mr 13:13 Triage completed. kd3 13:13 Arm band placed on left wrist. kd3 13:24 Liz Mayers MD is Attending Physician. sp3 14:28 Mahi Valente, NERI is Primary Nurse. me1 14:42 Patient has correct armband on for positive identification. Bed in low position. Call me1 light in reach. Side rails up X 1. Provided Education on: POC. Verbalized understanding.. 14:42 No provider procedures requiring assistance completed. Flushed right forearm. me1 14:50 CT Abd/Pelvis - IV Contrast Only In Process Unspecified. EDMS 18:16 IV discontinued, intact, bleeding controlled, No redness/swelling at site. Pressure me1 dressing applied. Administered Medications: 14:41 Drug: NS 0.9% IV 1000 ml IV at 1 bolus Per protocol; 1000 mL bolus Route: IV; Rate: 1 me1 bolus; Site: right forearm; 15:32 Follow up: Response: No adverse reaction; IV Status: Completed infusion kb3 14:41 Drug: Ondansetron IVP 4 mg IVP once; over 2 minutes Route: IVP; Site: right forearm; me1 15:32 Follow up: Response: No adverse reaction; Nausea is decreased kb3 16:34 Drug: metroNIDAZOLE IVPB 500 mg 100 ml IVPB at 200 ml/hr once over 30 mins Volume: 100 me1 ml; Route: IVPB; Rate: 200 ml/hr; Infused Over: 30 mins; Site: right antecubital; 17:11 Follow up: Response: No adverse reaction; IV Status: Completed infusion; IV Intake: me1 100ml 16:42 Not Given (Contraindicated): nsvzrpnvsmgoj958 mg 200 ml IVPB once over 60 mins sp3 17:21 Drug: Ampicillin-Sulbactam Sodium IVPB 3 grams IVPB once over 30 mins; (mix in 100 mL me1 NS) Route: IVPB; Infused Over: 30 mins; Site: right antecubital; 17:53 Follow up: Response: No adverse reaction; IV Status: Completed infusion me1 Medication: 14:42 VIS not applicable for this client. me1 Intake: 17:11 IV: 100ml; Total: 100ml. me1 Outcome: 16:47 Discharge ordered by . sp3 18:16 Discharged to home ambulatory, me1 18:16 Condition: stable 18:16 Discharge instructions given to patient, Instructed on discharge instructions, follow up and referral plans. medication usage, Demonstrated understanding of instructions, follow-up care, medications, Prescriptions given X 2, 18:16 Patient left the ED. me1 Signatures: Dispatcher [employer] EDMS Shireen Gonsalez, Reg Reg mr MayersLiz MD MD sp3 Lori Blackwell RN RN kd3 Phyllis Tran, NERI RN kb3 Mahi Valente, RN RN me1 Corrections: (The following items were deleted from the chart) 14:42 13:13 Chief complaint: Patient states: I have had abdominal pain on the left side, gas me1 and diarrhea. I am not sure if it is my ovary or stomach related. I had been on antibiotics for a bladder infection and i have been off of those antibiotics since August 15. I has on them from the until the . kd3
--- NOTE | 2023-08-27 16:48 | EDPHYS ---
Physician Documentation [facility] Name: Sharron Botello Age: 63 yrs Sex: Female : 1960 Arrival Date: 08/27/2023 Time: 12:49 Bed 10 Private MD: [facility] ED Physician Liz Mayers HPI: 08/27 15:32 This 63 yrs old Female presents to ER via Ambulatory with complaints of Abdominal Pain, sp3 Diarrhea. 15:32 63-year-old female with a history of Marfan's disease, hypertension, multiple aortic sp3 dissection status post synthetic repair presents to the ED with left lower quadrant abdominal pain times last 24 hours coupled with mild diarrhea nonbloody nonmucous in nature. Pain is described as mild in nature with sharp versus with current pain level being low. She denies any back pain, chest pain, shortness of breath or other similar symptoms when she had her aortic dissections. She also denies fever, URI symptoms, headache, vomiting, syncope, near syncope, melena, rectal bleeding, or any other signs or symptoms on ROS at this time.. Historical: - Allergies: 13:13 No Known Allergies; kd3 - Immunization history:: Adult Immunizations up to date. - Social history:: Smoking status: Patient denies any tobacco usage or history of. ROS: 15:34 Constitutional: Negative for fever, chills, and weight loss, Eyes: Negative for injury, sp3 pain, redness, and discharge, ENT: Negative for injury, pain, and discharge, Neck: Negative for injury, pain, and swelling, Cardiovascular: Negative for chest pain, palpitations, and edema, Respiratory: Negative for shortness of breath, cough, wheezing, and pleuritic chest pain, Back: Negative for injury and pain, MS/Extremity: Negative for injury and deformity, Skin: Negative for injury, rash, and discoloration, Neuro: Negative for headache, weakness, numbness, tingling, and seizure, Psych: Negative for depression, anxiety, suicide ideation, homicidal ideation, and hallucinations, Allergy/Immunology: Negative for hives, rash, and allergies, Endocrine: Negative for neck swelling, polydipsia, polyuria, polyphagia, and marked weight changes, Hematologic/Lymphatic: Negative for swollen nodes, abnormal bleeding, and unusual bruising, 15:34 All other systems are negative, Exam: 15:35 Constitutional: This is a well developed, well nourished patient who is awake, alert, sp3 and in no acute distress. Head/Face: Normocephalic, atraumatic. Eyes: Pupils equal round and reactive to light, extra-ocular motions intact. Lids and lashes normal. Conjunctiva and sclera are non-icteric and not injected. Cornea within normal limits. Periorbital areas with no swelling, redness, or edema. ENT: Nares patent. No nasal discharge, no septal abnormalities noted. External auditory canals are clear. Oropharynx with no redness, swelling, or masses, exudates, or evidence of obstruction, uvula midline. Mucous membranes moist. Neck: Trachea midline, no thyromegaly or masses palpated, and no cervical lymphadenopathy. Supple, full range of motion without nuchal rigidity, or vertebral point tenderness. No Meningismus. Chest/axilla: Normal chest wall appearance and motion. Nontender with no deformity. No lesions are appreciated. Cardiovascular: Regular rate and rhythm with a normal S1 and S2. No gallops, murmurs, or rubs. Normal PMI, no JVD. No pulse deficits. Respiratory: Lungs have equal breath sounds bilaterally, clear to auscultation and percussion. No rales, rhonchi or wheezes noted. No increased work of breathing, no retractions or nasal flaring. Back: No spinal tenderness. No costovertebral tenderness. Full range of motion. Skin: Warm, dry with normal turgor. Normal color with no rashes, no lesions, and no evidence of cellulitis. MS/ Extremity: Pulses equal, no cyanosis. Neurovascular intact. Full, normal range of motion. Neuro: Awake and alert, GCS 15, oriented to person, place, time, and situation. Cranial nerves II-XII grossly intact. Motor strength 5/5 in all extremities. Sensory grossly intact. Cerebellar exam normal. Normal gait. Psych: Awake, alert, with orientation to person, place and time. Behavior, mood, and affect are within normal limits. 15:42 ECG was reviewed by the Attending Physician. EKG demonstrates sinus bradycardia at 50 sp3 bpm with normal intervals, normal QRS, normal axis, nonspecific diffuse ST/T changes without evidence of acute ischemia. Vital Signs: 13:12 Pulse 64; Resp 16; Temp 97.7(TE); Pulse Ox 96% ; Weight 88.45 kg; Height 5 ft. 10 in. ; kd3 Pain 4/10; 13:13 BP 101 / 59; kd3 14:41 BP 108 / 66; Pulse 53; Resp 17; Pulse Ox 98% on R/A; me1 16:24 BP 115 / 70; Pulse 66; Resp 16; Pulse Ox 100% on R/A; me1 18:15 BP 121 / 63; Pulse 62; Resp 16; Pulse Ox 100% on R/A; me1 13:12 Body Mass Index 27.98 (88.45 kg, 177.8 cm) kd3 13:12 Pain Scale: Adult kd3 MDM: 13:25 Patient medically screened. sp3 15:37 Data reviewed: vital signs, nurses notes, lab test result(s), EKG, radiologic studies. sp3 ED course: 63-year-old with Marfan/connective tissue disorder now presents with left lower quadrant abdominal pain. Differential diagnosis is broad and includes diverticulitis, colitis, constipation, aortic pathology given her connective tissue disorder, kidney stone/ureterolithiasis, UTI, pyelonephritis. Work-up will include laboratory values, urine analysis and CT scan of the abdomen pelvis with contrast, EKG and other medications as indicated.. 16:45 ED course: Confirmed with patient aortic dissection is old and known and of the size sp3 that it is. Patient has no chest or back pain and pain is localized solely in the left lower quadrant. Will DC fluoroquinolone due to contraindication and switch her to Unasyn and Flagyl to go home on Augmentin and Flagyl. Fluoroquinolone was never given and switched out prior to her receiving it at all.. 08/27 13:25 Order name: CBC with Diff; Complete Time: 15:31 sp3 08/27 13:25 Order name: CMP; Complete Time: 15:31 sp3 08/27 13:25 Order name: Lipase; Complete Time: 15:31 sp3 08/27 13:25 Order name: Urinalysis w/ reflexes; Complete Time: 15:31 sp3 08/27 13:25 Order name: Troponin High Sensitivity; Complete Time: 15:31 sp3 08/27 13:25 Order name: CT Abd/Pelvis - IV Contrast Only; Complete Time: 16:20 sp3 08/27 13:25 Order name: EKG; Complete Time: 13:25 sp3 08/27 13:25 Order name: IV Saline Lock; Complete Time: 14:08 sp3 08/27 13:25 Order name: Labs collected and sent; Complete Time: 14:08 sp3 08/27 13:25 Order name: EKG - Nurse/Tech; Complete Time: 14:08 sp3 Administered Medications: 14:41 Drug: NS 0.9% IV 1000 ml IV at 1 bolus Per protocol; 1000 mL bolus Route: IV; Rate: 1 me1 bolus; Site: right forearm; 15:32 Follow up: Response: No adverse reaction; IV Status: Completed infusion kb3 14:41 Drug: Ondansetron IVP 4 mg IVP once; over 2 minutes Route: IVP; Site: right forearm; me1 15:32 Follow up: Response: No adverse reaction; Nausea is decreased kb3 16:34 Drug: metroNIDAZOLE IVPB 500 mg 100 ml IVPB at 200 ml/hr once over 30 mins Volume: 100 me1 ml; Route: IVPB; Rate: 200 ml/hr; Infused Over: 30 mins; Site: right antecubital; 17:11 Follow up: Response: No adverse reaction; IV Status: Completed infusion; IV Intake: me1 100ml 16:42 Not Given (Contraindicated): [id number] mg 200 ml IVPB once over 60 mins sp3 17:21 Drug: Ampicillin-Sulbactam Sodium IVPB 3 grams IVPB once over 30 mins; (mix in 100 mL me1 NS) Route: IVPB; Infused Over: 30 mins; Site: right antecubital; 17:53 Follow up: Response: No adverse reaction; IV Status: Completed infusion me1 Disposition Summary: 08/27/23 16:47 Discharge Ordered Notes: Location: Home sp3 Condition: Stable sp3 Diagnosis - Diverticulitis of intestine, part unspecified, without perforation or abscess sp3 without bleeding Followup: sp3 - With: Private Physician - When: Upon discharge from the Emergency Department - Reason: Continuance of care Discharge Instructions: - Discharge Summary Sheet sp3 - Diverticulitis sp3 Forms: - Medication Reconciliation Form sp3 - Thank You Letter sp3 - Antibiotic Education sp3 - Prescription Opioid Use sp3 - Patient Portal Instructions sp3 - Leadership Thank You Letter sp3 Prescriptions: - Augmentin 875-125 mg Oral tablet - take 1 tablet ORAL route every 12 hours for 7 days; 14 tablet; Refills: 0, sp3 Product Selection Permitted - Flagyl 500 mg Oral tablet - take 1 tablet ORAL route every 8 hours for 7 days; 21 tablet; Refills: 0, sp3 Product Selection Permitted Signatures: Dispatcher [employer] EDLiz Quarles MD MD sp3 Lori Blackwell RN RN kd3 Mahi Valente RN RN me1 Phyllis Tran RN kb3 Corrections: (The following items were deleted from the chart) 16:46 16:45 ED course: Confirmed with patient aortic dissection is old and known and of the sp3 size that it is. Patient has no chest or back pain and pain is localized solely in the left lower quadrant. Will DC fluoroquinolone due to contraindication and switch her to Unasyn and Flagyl to go home on Augmentin and Flagyl.. sp3
[2023-08-27] MEDS ORDERED: NA CHLORIDE 0.9% 100 ML ONE (17:21)
[2023-08-27] MEDS ORDERED: AMPICILLIN/SULBACTAM 3GM/VIAL ONE (17:21)
[2023-08-27 18:39] VITALS: TEMP 97.7
[2023-08-27 18:42] VITALS: O2SAT 100
[2023-08-27 18:43] VITALS: BP 121/63
--- NOTE | 2023-08-29 14:12 | EKG ---
Test Date: 2023-08-27 Test Time: 16:31:04 Office Administration Instructor: MEASUREMENT RESULTS: Intervals: Rate: 49 MO: 190 QRSD: 82 QT: 512 QTc: 462 [place]: P: 79 MO: 190 QRS: 53 T: 61 INTERPRETIVE STATEMENTS: Marked sinus bradycardia ST & T wave abnormality, consider anterior ischemia Abnormal ECG No previous ECG available for comparison Electronically Signed On 08-29-23 14:08:00 [employer]ICULTURAL EQUIPMENT SALESPERSON by Duc Oleary
== END 2023-08-27 18:16 | disposition home or self-care (01) ==
LOC: ER 12:49
DX: K57.32 Diverticulitis of large intestine without perforation or abscess without bleeding (principal); I10 Essential (primary) hypertension
CPT/HCPCS: 96365; 96367; 96361; 93005; 85025; 81001; 36415; 84484; 83690; 80053; 74177; 96375; 99284; Q9967; J0295; J2405; J7030; J0744